=== PATIENT | female | born 1995 | race Caucasian/White ===

== ENCOUNTER → 2016-12-08 | Outpatient (CLI) | payer BC | END | disposition home or self-care (01) | LOC: C.PAPS 11:23 | PROVIDERS: ATTEND Obstetrics & Gynecology | DX: Z01.419 Encounter for gynecological examination (general) (routine) without abnormal findings (principal) ==

== ENCOUNTER → 2017-05-09 | Outpatient (CLI) | payer BC ==
--- NOTE | 2017-05-09 10:03 | DIAGNOSTIC IMAGING REPORT ---
HYSTEROSALPINGOGRAM HISTORY: Infertility. FLUOROSCOPY TIME: 0.5 minutes. 4 fluoroscopic spot images.. TECHNIQUE: The cervix was cannulated by the handstitching machine armhole feller-electrical assembler and water soluble contrast was instilled into the uterus under fluoroscopic guidance. Multiple spot images were obtained. FINDINGS: The uterine cavity is normal in size, shape, and position. The fallopian tubes are patent and there is free peritoneal spill bilaterally. IMPRESSION: Normal hysterosalpingogram. Electronically signed by: Kenn Pfeiffer M.D. 05/09/2017 10:02 AM Dictated Date/Time: 05/09/2017 10:02 AM
--- NOTE | 2017-05-09 11:58 | OPERATIVE REPORT ---
DATE OF OPERATION: 05/09/2017 PREOPERATIVE DIAGNOSIS: Infertility. POSTOPERATIVE DIAGNOSIS: Same. PROCEDURE: Hysterosalpingogram. SURGEON: Dr. Francis. ANESTHESIA: None. ESTIMATED BLOOD LOSS: None. PROCEDURE: The patient was identified in the radiology suite by verbally and by bracelet. A time-out was held identifying correct patient and procedure. She was placed in the frog leg position. A speculum was placed. Cervix was cleaned with Betadine. The anterior lip of the cervix was grasped with an Allis. The introducer was placed into the cervix. The radiologist was called. The patient was positioned under the fluoroscopy and fluoroscopy was initiated. The dye was pushed until adequate pictures were obtained. The procedure was then discontinued. All instruments were removed from the vagina. Hemostasis was excellent. The patient tolerated the procedure well and was discharged home. I attest to the content of the Intraoperative Record and any orders documented therein. Any exception s are noted below.
== END | disposition home or self-care (01) ==
LOC: C.RAD 09:13
PROVIDERS: ATTEND Obstetrics & Gynecology
DX: Z31.41 Encounter for fertility testing (principal)

== ENCOUNTER 2020-12-23 07:28 | Inpatient (IN) ==
--- NOTE | 2020-12-23 08:04 | History & Physical Report ---
Date of Service December 23, 2020 Assessment & Plan (1) Encounter for induction of labor: 25 y/o at 39w0d here for eIOL. A pos. RI. GBS neg. Letrozole use (x11 cycles) in past (evaluated for infertility in 2017). - induction via pitocin, 2+2 - planning for epidural. consult anesthesiology. - type + screen ordered. - LR 125/hr - covid swab ordered - pugh bulb placed on 12/22/20. bulb is still in. (2) Encounter for supervision in primigravida, antepartum: (3) Von Willebrand disease: - took DDAVP in past (IV and nasal) for procedures plan: DDAVP 1hr prior to delivery - See Heme note 12/16/20 20mcg of DDAVP mixed in 50 ml NSS (4) Gallstone pancreatitis: - per outpt gen surg consult, planning for lap neil 1-2 months after delivery - s/p BMZ -11/27/20 (5) Tobacco smoking affecting : - 1/2 ppd tobacco during (6) Anxiety and depression: - not on medications Admission and Anticipated Discharge Date Admission Date: December 23, 2020 History of Present Illness Primary Care Provider: Francisca Hurley PA-C 25 y/o at 39w0d here for eIOL. Pugh bulb placed 12/22/20. complicated by Von Willebrand disease, current tobacco use, and gallstone pancreatitis (s/p BMZ 11/26-11/27). - contractions; + movement; - fluid loss; - bloody show Had regular appointments with OB. Labs: (05/19/20) Blood type: A pos (06/09/20) Antibody screen: neg (06/09/20) Hg: pending (today) Hct: pending (today) WBC: pending (today) Plt: pending (today) Rubella: immune RPR: nonreactive Gonorrhea: not detected Chlamydia: not detected HIV: neg HbSAg: neg GBS: neg (12/07/20) Glucose 1 Hour 50 gm Load 100 mg/dl (70-130) 10/15/20 Other screens: panorama low risk akh cf/sma neg akh afp neg akh Allergies Allergy/AdvReac Type Severity Reaction Status Date / Time codeine AdvReac Intermediate Nausea Verified 12/22/20 15:12 metoclopramide [From Reglan] AdvReac Anxiety Verified 12/22/20 20:19 Home Medications Medication Instructions Recorded Confirmed Type acetaminophen [Tylenol] 650 mg PO Q6H PRN 05/14/19 12/23/20 History prenat.vits,maikel,[id number] 1 tab PO DAILY 05/15/20 12/23/20 History ondansetron HCl 4 mg tablet 4 mg PO Q4H PRN #20 tab 09/07/20 12/23/20 Rx sucralfate [Carafate] 10 ml PO QID #420 ml 11/24/20 12/23/20 Rx famotidine 20 mg PO BID PRN 11/25/20 12/23/20 History ferrous sulfate 325 mg (65 mg 325 mg PO DAILY 12/03/20 12/23/20 History iron) tablet Patient History Medical History Anxiety no meds Depression no meds Gallstone pancreatitis 11/24/20 - plan to have gallbladder removed in January GERD (gastroesophageal reflux disease) History of hysterosalpingogram Hyperemesis affecting , antepartum Interstitial cystitis Varicella vaccination Von Willebrand disease Surgical History S/P cystoscopy S/P nasal septoplasty S/P wisdom tooth extraction Family History Grandfather (Paternal) Heart disease Stroke Hypertension Grandmother (Paternal) Heart disease Stroke Hypertension Denies family history of Ovarian cancer Breast cancer Colorectal cancer Social History (Updated 12/23/20 @ 09:10 by Sergio Mittal MD) Smoking Status: Current every day smoker Tobacco Type: Cigarettes Years Smoked: 10; Cigarettes Per Day: 1/2 pack per day; Second Hand Exposure: No; Do You Dip or Chew Tobacco: No; Tobacco Cessation Education Requested by Patient: No Hx Alcohol Use: No Hx Substance Use: Yes Prescribed Medications: Marijuana Prescribed Medications Comment: medical marijuana per patient. Has not used during . Preferred Language: Croatian Communication Ability: Effective Cna Pct Required: No Beliefs That Will Affect Care: None marital status: marital status details: raul Blanton (24) [phone] Current Living Situation: Spouse Current Living Situation Comment: lives with foster daughter and dog current occupational status: employed current occupation: contract tracer How many Children do You have: 2 Other Information That Helps Us Care for You: No Feels Safe at Home: Yes Safety Concerns: Feels Safe At This Time Assistive Devices: None Review of Systems Denies fever, chills, sweats Denies shortness of breath, difficulty breathing, chest pain, palpitations, chest pressure. Denies breast pain. Denies dysuria. Denies headache or changes in vision. Denies nausea/vomiting. Denies numbness, tingling, weakness. Physical Exam Physical Exam: General: Alert, oriented. No acute distress. Cardiac: Regular rate and rhythm, no murmurs/rubs/gallops. Respiratory: Clear to auscultation bilaterally, no wheezes/rales/rhonchi. No increased work of breathing. Symmetrical chest rise. No respiratory distress. Abdomen: Gravid; Nontender Pelvic: Dilation 5cm; Effacement 75%; Station -2. Soft-mid. EFW 7-8. Exam per Dr. Francis Lower Extremities: No lower extremity edema or swelling. No deep calf pain. Markel's negative bilaterally Results & Data ([facility]) Vital Signs (Past 12 Hours) Vital Signs Pulse BP 12/23/20 07:47 93 H 128/77 Code Status & VTE Plan Code Status full code VTE Prophylaxis Plan VTE Prophylaxis will be ordered: No Monitoring External Monitor External FHT and external uterine monitors used; Category I tracing; moderate FHT variability.Baseline ~150. No late or variable decels. Tocodynamometer External toco. No contractions noted. Supervising Physician Co-Signing Physician Notes Resident Physician Supervision Note: I interviewed and examined the patient. Discussed with Dr. Dr. Mittal and agree with findings and plan as documented in the note. Any exceptions or clarifications are listed here: Patient is a 25yowf G1 with Type one vWD. Patient has been seen by hematology and plan is DDAVP one hour prior to delivery. Fetus is having an occasional variable. Bedside ultrasound shows subjectively low fluid. Fetus overall reassuring with accels noted. Anesthesia has been by and talked to the patient about the risk of regional anesthesia. Would plan to give ddavp one hour prior to regional anesthesia. If she delivers within 6-7 hours, per Dr. Hairston, probably don't need to redose. If longer than than that, consider a second dose, but only 2 in 24 hrs. Then will need to check sodium in the morning. Did discuss that if fetus does not tolerate labor and need to proceed with urgent c/s and no ddavp given, will likely have to go to sleep and risk of bleeding is increased. Discussed could proceed with elective c/s now, but do not necessarily feel we need to do this at this point as overall the baby looks reassuring. However, to avoid that very small risk of urgent c/s, proceeding now electively and controlled would be the answer. Again, I don't think we need to do that. Questions asked and answered with Dr. Graves and the patient. Will get formal baylee just to see, but if oligo, would be indication for induction anyway. My plan would be if pit given and have frequent variable and low fluid, can consider amnioinfusion or proceeding to controlled c/s. Patient and fob express understanding of the situation. Documented By: Dayanara Francis MD, FACOG Resident Activity Tracking Resident Involvement: Resident Care Provided Care Provided: OB Delivery
[2020-12-23] MEDS ORDERED: OXYTOCIN 30 UNITS/500 ML BAG IV PRN ×2 (08:29)
[2020-12-23] MEDS ORDERED: LACTATED RINGER'S 1,000 ML IV PRN (08:29)
[2020-12-23 10:29] LABS: Hematocrit (blood only) 31.7 % (37-47); Hemoglobin 10.8 g/dL (12.0-16.0); Mean Corpuscular Hgb Conc 34.1 g/dL (32-36); Mean Corpuscular Volume 88.1 fL (80-100); Mean Platelet Volume 10.4 fL (7.4-10.4); Platelet Count 341 K/uL (130-400); RDW Coefficient of Variation 13.6 % (11.5-14.5); RDW Standard Deviation 43.9 fL (36.4-46.3); White Blood Count 12.29 K/uL (4.8-10.8)
--- NOTE | 2020-12-23 10:37 | Anesthesiology Consultation ---
Date of Service December 23, 2020 Assessment & Plan (1) Encounter for pre-operative examination: Chart Review Chart Review: Acceptable Risk for Surgery and Acceptable Risk for Labor Epidural Teaching & Discussion Spoke with patient about her increased bleeding risk from type I vonwillebrands and how it might affect my ability to offer neuraxial analgesia and or anesthesia. Her vw labs were found to be in the normal range during her pregna ncy which is common. She understands that we would give ddavp prior to any procedure per Dr Hairston's recommendations, and that bleeding complications will be a lower, reasonable risk though still higher than in someone without the disorder. She realizes that a neuraxial procedure is not a necessity in childbirth and will consider her options, but is leaning toward doing it at this point. Will follow along through her labor with Dr Francis. History Height/Weight Height: 5 ft 3 in Weight: 78.925 kg Allergies Allergy/AdvReac Type Severity Reaction Status Date / Time codeine AdvReac Intermediate Nausea Verified 12/22/20 15:12 metoclopramide [From Reglan] AdvReac Anxiety Verified 12/22/20 20:19 Medications Home Medications Medication Instructions Recorded Confirmed Last Taken acetaminophen [Tylenol] 650 mg PO Q6H PRN 05/14/19 12/23/20 12/22/20 23:00 prenat.vits,maikel,[id number] 1 tab PO DAILY 05/15/20 12/23/20 12/22/20 ondansetron HCl 4 mg tablet 4 mg PO Q4H PRN #20 tab 09/07/20 12/23/20 11/24/20 21:30 sucralfate [Carafate] 10 ml PO QID #420 ml 11/24/20 12/23/20 11/24/20 20:00 ONE DOSE TODAY famotidine 20 mg PO BID PRN 11/25/20 12/23/20 12/22/20 ferrous sulfate 325 mg (65 mg 325 mg PO DAILY 12/03/20 12/23/20 12/22/20 iron) tablet Active Medications Generic Name Dose Route Start Last Admin Trade Name Freq PRN Reason Stop Dose Admin Oxytocin 30 units in 500 mls @ 2 mls/hr 12/23/20 08:29 12/23/20 10:27 Pitocin IV 12/25/20 08:28 0.12 units/hr .Q24H PRN 2 mls/hr Labor Induction/Augmentation Administration Protocol 0.12 UNITS/HR Lactated Ringer's 1,000 mls @ 125 mls/hr 12/23/20 08:29 12/23/20 08:52 Lr IV 12/25/20 08:28 125 mls/hr .Q8H PRN Administration L&D Protocol Protocol NPO Last Intake of Fluids Comment: Sips Date Last Intake of Solids: 12/22/20 Past Medical History Medical History Anxiety no meds Depression no meds Gallstone pancreatitis 11/24/20 - plan to have gallbladder removed in January GERD (gastroesophageal reflux disease) History of hysterosalpingogram Hyperemesis affecting , antepartum Interstitial cystitis Varicella vaccination Von Willebrand disease Exercise / Class Metabolic Activity II 4-5 Yardwork/Stairs/Walk up hill Past Family History Family History Grandfather (Paternal) Heart disease Stroke Hypertension Grandmother (Paternal) Heart disease Stroke Hypertension Denies family history of Ovarian cancer Breast cancer Colorectal cancer Past Surgical History Surgical History S/P cystoscopy S/P nasal septoplasty S/P wisdom tooth extraction Social History Smoking Status: Current every day smoker tobacco type: cigarettes Smoking cigarettes per day: 1/2 pack per day Do You Dip or Chew Tobacco: No Hx Alcohol Use: No Hx Substance Use: Yes substance use type: does not use Physical Exam Vital Signs Last Vital Signs Temp 36.7 C 12/23/20 07:55 Pulse 93 H 12/23/20 07:55 Resp 18 12/23/20 07:55 BP 128/77 12/23/20 07:55
--- NOTE | 2020-12-23 12:46 | Labor Progress Brief Note ---
Date of Service December 23, 2020 Subjective Formal ultrasound confirms oligohydramnios with largest vertical pocket<2 and baylee less than 4. Additionally at the time of the ultrasound, the tech noted thickened tissue/skin behind the head and neck. there is no other area of skin that is thickened or edematous and no evidence of fluid in the abdomen, around the heart or lungs. Discussed this new finding with M. Nl anatomy ultrasound noted. Dr. Bey noted that she could not think of anything off the top of her head. Does not sound like hydrops, may just be fat in the tissues behind the neck. Did not feel a contraindication to vaginal delivery. Discussed the patient with [place] litigation attorney. Also discussed with the patient and her fob. They express understanding of the uncertainty of the situation and possible causes. Will likely not know until after delivery. Dr. Bey thought that it was ok for the baby to deliver here. The patient is comfortable with delivery here. Dr. Bruce is ok as well. Patient understands that if something unexpected found, baby may need to be transferred to higher care (in fact, that can happen in any delivery situation). Pitocin is currently at 4. Not really feeling contractions. Fetus category one currently with accels to 160s. Assessment & Plan Admission and Anticipated Discharge Date Admission Date: December 23, 2020 Results & Data ([facility]) Vital Signs (Past 12 Hours) Vital Signs Temp Pulse Resp BP 12/23/20 10:29 71 121/71 12/23/20 07:55 36.7 C 93 H 18 128/77 12/23/20 07:47 93 H 128/77 Coding Level of Care Code None
--- NOTE | 2020-12-23 13:04 | Ultrasound Report ---
US OB limited CLINICAL HISTORY: baylee, evaluate for oligohydramnios COMPARISON STUDY: Obstetrical ultrasound 09/09/2020. FINDINGS: Transabdominal scanning of the fetus was performed with lifeline representatives images submitted. A anatomic survey was not performed. heart rate is 133 beats per minute. The fetus is in a cephalic presentation. There is a fundal placenta. No subchorionic hematoma identified. There is jose re oligohydramnios with an amniotic fluid index of 3 cm. IMPRESSION: 1. Single viable intrauterine gestation with a heart rate of 133 BPM. 2. Severe oligohydramnios. ACT 112: Negative or not required by law. Electronically signed by: Kenn Pfeiffer M.D. 12/23/2020 1:02 PM
--- NOTE | 2020-12-23 13:23 | Labor Progress Brief Note ---
Date of Service December 23, 2020 Subjective Fetus had a spontaneous decel to 70s for about 5 minutes. Pit was at 4 and turned off. Patient turned. Checked and cx unchanged. Difficult contraction tracing so may have been an episode of tachysystole. Baby has now recovered , had scalp stim with check. Discussed the situation again with them. Given that we are already doing this and so far from delivery, I have concern in the setting of oligo that this may recur and discussed concern given her overall situation and a stat c/s. I discussed that I recommend we proceed with a controlled c/s at this time. Was just getting ready to start the ddavp in preparation for an epidural as Pit was at 4 and we were having q 2 min ctx that were palpating moderate. Also discussed that the baby has recovered and could continue current plan to get epidural and then break water and hold on pitocin for now. Either option reasonable. After discussion, plan to move on with c/s for intolerance of labor under controlled circumstances. Consent reviewed and signed. Anesthesia aware. STarting DDAVP now. Assessment & Plan Admission and Anticipated Discharge Date Admission Date: December 23, 2020 Results & Data ([facility]) Vital Signs (Past 12 Hours) Vital Signs Temp Pulse Resp BP 12/23/20 12:38 67 131/63 12/23/20 12:35 36.9 C 18 12/23/20 10:29 71 121/71 12/23/20 07:55 36.7 C 93 H 18 128/77 12/23/20 07:47 93 H 128/77 Coding Level of Care Code None
[2020-12-23] MEDS ORDERED: MoRPHine SULFATE PF 1 MG/ML 10 ML AMP/VIAL ONE (13:27)
[2020-12-23] MEDS ORDERED: CITRIC ACID/SODIUM CITRATE 15 ML UDC ONE (13:41)
[2020-12-23] MEDS ORDERED: LACTATED RINGER'S 1,000 ML IV SCH ×2 (13:45→19:01)
[2020-12-23] MEDS ORDERED: ceFAZolin 2000MG 2,000 MG/15 ML SYR IV SCH (13:45)
[2020-12-23] MEDS ORDERED: CITRIC ACID/SODIUM CITRATE 15 ML UDC PO SCH (13:45)
[2020-12-23] MEDS ORDERED: miSOPROStoL 100 MCG TAB ONE (13:48)
[2020-12-23] MEDS ORDERED: ePHEDrine sulfate 50 MG/ML AMP IV PRN (14:56)
[2020-12-23] MEDS ORDERED: NALOXONE HCL 0.4 MG/1 ML VIAL/CARP IV PRN (14:56)
[2020-12-23] MEDS ORDERED: NALOXONE HCL 0.08 MG in SYRINGE 1.8 ML IV PRN (14:56)
[2020-12-23] MEDS ORDERED: NALOXONE HCL 1 MG in SODIUM CHLORIDE 0.9% 1,000 ML IV PRN (14:56)
[2020-12-23] MEDS ORDERED: ONDANSETRON INJ 2 MG/ML 2 ML VIAL IV PRN ×2 (14:56→19:01)
[2020-12-23] MEDS ORDERED: MoRPHine SULFATE PF 1 MG/ML 10 ML AMP/VIAL INT SPINAL ONE (14:56)
[2020-12-23] MEDS ORDERED: PROMETHAZINE HCL 12.5 MG in SODIUM CHLORIDE 0.9% 50 ML IV PRN (14:56)
[2020-12-23] MEDS ORDERED: MEPERIDINE HCL 25 MG/ML CARP/VIAL IV PRN (14:56)
[2020-12-23] MEDS ORDERED: LACTATED RINGER'S 500 ML IV PRN (14:56)
[2020-12-23] MEDS ORDERED: diphenhydrAMINE 50 MG/ML VIAL IV PRN ×2 (14:56→19:01)
[2020-12-23] MEDS ORDERED: SODIUM CHLORIDE 0.9% 1,000 ML IV SCH (15:00)
[2020-12-23] MEDS ORDERED: DC INTRASPINAL MORPHINE SCH (15:00)
[2020-12-23] MEDS ORDERED: NO NARCOTICS OR SEDATIVES SCH (15:00)
[2020-12-23] MEDS ORDERED: PROPOFOL IV EMULSION 10 MG/ML 20 ML VIAL IV ONE (15:03)
[2020-12-23] MEDS ORDERED: LIDOCAINE 2% MPF LOCAL 5 ML VIAL INFIL ONE (15:03)
[2020-12-23] MEDS ORDERED: OXYTOCIN 10 UNITS/ML VIAL ONE ×3 (15:04→15:40)
[2020-12-23] MEDS ORDERED: ONDANSETRON INJ 2 MG/ML 2 ML VIAL ONE (15:04)
[2020-12-23] MEDS ORDERED: ePHEDrine sulfate 50 MG/5 ML SYR ONE (15:04)
[2020-12-23] MEDS ORDERED: PHENYLEPHRINE 100MCG/ML 5ML SYR ONE (15:27)
--- NOTE | 2020-12-23 15:45 | Operative Report ---
PG Post Operative Report Pre & Post Diagnosis Operation Date: 12/23/20 15:00 <No data on this case meets the specified criteria> preop- 1. at 39 weeks 2. type 1 von Willebrands disease 3. intolerance of labor 4. oligohydramnios postop-- same I identified the patient and participated in the time-out.: Yes Procedure Operation Date: 12/23/20 15:00 <No data on this case meets the specified criteria> primary low transverse Surgeon Dayanara Francis MD, FACOG Detailer [employer] Ab Tavera RN Estimated Blood Loss 600 Findings Consistent with Post-Op Diagnosis viable female infant in cephalic presentation, clear fluid, nl uterus/tubes ovaries bilaterally small hematoma on left of incision Fluids 2100cc Specimens placenta, cord gases Drains pugh Anesthesia Type Spinal Complications none Disposition Accompanied Patient To Recovery: Yes Disposition: L&D Indications 25yowf G1, induction for Type 1 von Willebrands disease, oligo diagnosed day of procedure. intolerance of contractions. Description of Procedure please see other operative note. I attest to the content of the Intraoperative Record and any orders documented therein. Any exceptions are noted below. OB Procedure charges OB Charges [id number] C/S
[2020-12-23] MEDS ORDERED: ACETAMINOPHEN 1,000 MG/100 ML VIAL IV PRN (16:12)
[2020-12-23] MEDS ORDERED: ACETAMINOPHEN 1000 MG/100 ML IV IV ONE (16:14)
[2020-12-23] MEDS ORDERED: DESMOPRESSIN ACETATE 20 MCG in SODIUM CHLORIDE 0.9% 50 ML IV SCH (17:00)
--- NOTE | 2020-12-23 17:53 | Operative Report (OR) ---
DATE OF OPERATION: 12/23/2020 PREOPERATIVE DIAGNOSES: 1. Intrauterine at 39 weeks. 2. Type 1 von Willebrand's disease. 3. Oligohydramnios. 4. intolerance to labor. POSTOPERATIVE DIAGNOSES: 1. Intrauterine at 39 weeks. 2. Type 1 von Willebrand's disease. 3. Oligohydramnios. 4. intolerance to labor. PROCEDURE: Primary low transverse section. SURGEON: Dayanara Francis MD. CHEMICAL ENGINEERING PROFESSOR: Angela Tavera RN. ANESTHESIA: Spinal. ESTIMATED BLOOD LOSS: 600 mL FLUIDS: 2100 mL URINE OUTPUT: 50 mL of clear concentrated urine out of the bladder at the end of the procedure. INDICATIONS: The patient is a 25-year-old 1, para 0 with known type 1 von Willbrand disease. She was brought in today at 39 and 0/7th weeks for planned induction for controlled delivery of DDAVP. Upon putting the baby on the monitor several variables were noted, so brief bedside ultrasound was done and subjective oligohydramnios was noted. Formal US showed BERNADETTE was 3.9 with a deep vertical pocket of 1.7. We attempted Pitocin augmentation, but even at 4, we continued to have variables and then we had a prolonged spontaneous decel for 5 minutes. After discussion, we decided that to proceed in a controlled manner with section with DDAVP administered appropriately beforehand was a better choice than an acute urgent section for nontolerance of labor without giving DDAVP beforehand and needing to have general anesthesia. The patient understood that we could continue labor because after the 5 minute decel the heart tones resolved to category 1 strip. FINDINGS: Viable female in cephalic presentation. Placenta appeared normal. Cord normal. There was a little bit of clear fluid that was released on hysterotomy incision. Normal uterus, tubes, and ovaries were noted bilaterally. Apgars pending. COMPLICATIONS: None. DRAINS: Murray. DISPOSITION: To recovery room in stable condition. DESCRIPTION OF PROCEDURE: The patient was taken to the operating room where she was identified verbally and by bracelet. She She was seated on the operating table where spinal anesthetic was placed. The patient had received DDAVP that was infused by 3 o'clock totally 20 mcg of DDAVP and 50 mL of normal saline that was completely infused at 3:00. The patient was then brought down to the operating room at 3:30 where her spinal anesthetic was placed as described. A Murray catheter was placed sterilely. She was prepped and draped in normal sterile fashion. Anesthetic was tested and found to be adequate. A time-out was held, identifying correct patient, procedure, positioning, preoperative antibiotic and distention of DDAVP. A Pfannenstiel skin incision was made with a knife and taken down to the underlying layer of fascia with the knife and Bovie electrocautery. Bleeding was attended to with Bovie electrocautery. The fascia was incised with the knife and taken out laterally with scissors. The superior edge of the fascial incision was grasped, elevating the underlying layer of rectus muscle was taken off bluntly and with scissors. In a similar fashion, the inferior edge of the fascial incision was grasped, elevated and the underlying layer of rectus muscle was taken off bluntly and with scissors. The muscles were bluntly and sharply with scissors in the midline. The peritoneum was entered bluntly. It was stretched with the tinsel machine operator's and technology assistant's hands. A bladder blade was placed. A bladder flap was created by grasping with a snap and entering with scissors. This was taken out laterally with scissors. Hysterotomy incision was scored with a knife. It was entered with a snap. The incision was stretched with the tinsel machine operator's fingers. A small amount of clear fluid was noted on hysterotomy incision. The tinsel machine operator's hand was placed into the incision and the head was lifted into the incision, but it was a tight fit. I called for the vacuum and it was applied x1, but did not have a good seal and popped off easily. Then remembering that the patient has von Willebrand's disease, Decision was made not to proceed with further attempts with the vacuum. I was then able to extend the incision on the left side using bandage scissors and then we were able to deliver the head atraumatically through the incision using fundal pressure. There was immediate cry. Nose and mouth were bulb suctioned. There was no nuchal cord and the rest of the infant was then delivered without difficulty. The nose and mouth were again bulb suctioned. The baby was vigorous. The cord was clamped and cut. The was handed off to waiting pediatricians for drying and attention. Cord blood and segment were obtained. Placenta was manually extracted. The uterus was exteriorized and cleared of all clot and debris with moist laparotomy sponges. The hysterotomy was repaired in 2 layers, the first in a running locked layer and the second in an imbricating layer. There was a small hematoma noted on the left side of the incision that was watched very carefully over several minutes and was not expanding. The incision was noted to be hemostatic. The posterior cul-de-sac was irrigated and cleared of all clot and debris. The incision was inspected again and found to be hemostatic. A small hematoma was not enlarged. The uterus was reanteriorized. The area of the hematoma was again observed for a few minutes and no worsening of the hematoma was noted. The muscles were then reapproximated in the midline using interrupted sutures of 0 Vicryl. The muscles were then irrigated and any bleeding edges were attended to with Bovie electrocautery until hemostasis was good. The fascia was then reapproximated with 0 Vicryl starting at the edges and meeting in the midline. The subcuticular tissue was irrigated. Bleeding was attended to with Bovie electrocautery. The subcuticular tissue was closed with horizontal mattress sutures of 2-0 plain gut and the skin was then closed with subcuticular stitches. All sponge, lap and needle counts were correct x2. The patient tolerated the procedure well and was taken to recovery room in stable condition. I attest to the content of the Intraoperative Record and any orders documented therein. Any exceptions are noted below. KARISHMAD
[2020-12-23 18:07] LABS: Base Excess Cord Venous Blood -2.7 mEq/L (-7.7-1.9); Cord Venous Blood HCO3 24 mmol/L (18.4-26.8); Cord Venous Blood PCO2 48 mmHg (30.4-57.2); Cord Venous Blood PO2 25 mmHg (14.1-43.3); Cord Venous Blood pH 7.32 (7.20-7.44); O2 Saturation Cord Venous Bld 61.3 % (<68)
--- NOTE | 2020-12-23 18:37 | Anesthesiology Progress Note ---
Date of Service December 23, 2020 Anesthesia Post Procedure Vital Signs Vital Signs: Temp Pulse Resp BP Pulse Ox 12/23/20 18:34 79 100 12/23/20 18:29 69 100 12/23/20 18:26 71 116/58 L 12/23/20 18:24 75 100 12/23/20 18:19 72 100 12/23/20 18:14 63 100 12/23/20 18:09 73 100 12/23/20 18:04 74 100 12/23/20 17:59 70 100 12/23/20 17:56 66 123/60 12/23/20 17:54 63 100 12/23/20 17:49 66 100 12/23/20 17:47 59 L 120/58 L 12/23/20 17:44 66 100 12/23/20 17:39 70 100 12/23/20 17:37 71 118/54 L 12/23/20 17:34 70 100 12/23/20 17:29 72 100 12/23/20 17:24 59 L 100 12/23/20 17:19 70 100 12/23/20 17:16 70 115/65 12/23/20 17:14 71 100 12/23/20 17:09 69 100 12/23/20 17:06 64 116/73 12/23/20 17:04 62 100 12/23/20 16:59 58 L 100 12/23/20 16:56 54 L 117/69 12/23/20 16:54 53 L 100 12/23/20 16:52 65 112/68 12/23/20 16:49 68 100 12/23/20 16:46 169 H 114/44 L 12/23/20 16:45 51 L 16 112/68 100 12/23/20 16:44 61 100 12/23/20 16:39 62 100 12/23/20 16:36 67 110/58 L 12/23/20 16:35 67 16 110/58 L 100 12/23/20 16:34 61 100 12/23/20 16:29 68 100 12/23/20 16:26 63 116/74 12/23/20 16:25 63 18 116/74 100 12/23/20 16:24 60 100 12/23/20 16:19 57 L 100 12/23/20 16:16 50 L 115/68 12/23/20 16:15 69 16 115/68 100 12/23/20 16:14 62 100 12/23/20 16:09 55 L 100 12/23/20 16:06 51 L 114/64 12/23/20 16:05 51 L 16 114/64 100 12/23/20 16:04 52 L 100 12/23/20 15:59 62 100 12/23/20 15:56 66 119/68 12/23/20 15:55 36.4 C L 72 16 119/68 99 12/23/20 14:28 72 135/76 12/23/20 13:37 71 126/69 12/23/20 12:38 67 131/63 12/23/20 12:35 36.9 C 18 12/23/20 10:29 71 121/71 12/23/20 07:55 36.7 C 93 H 18 128/77 12/23/20 07:47 93 H 128/77 Pain Intensity Lower Medial Abdomen: Pain Intensity: 7 Transfer of Care Handoff Completed per policy Notes Mental Status: alert / awake / arousable Patient Amnestic to Procedure: Yes Nausea / Vomiting: adequately controlled Pain: adequately controlled Airway Patency, RR, SpO2: stable & adequate BP & HR: stable & adequate Hydration State: stable & adequate Neuraxial Anesthesia: was administered and sensory block is resolving Anesthetic Complications: no major complications apparent
[2020-12-23] MEDS ORDERED: PROMETHAZINE HCL 25 MG in SODIUM CHLORIDE 0.9% 50 ML IV PRN (19:01)
[2020-12-23] MEDS ORDERED: MAGNESIUM HYDROXIDE SUSP 30 ML UDC PO PRN (19:01)
[2020-12-23] MEDS ORDERED: BENZOCAINE 20% SPRY 85 APPLN/85 GM CAN EXT PRN (19:01)
[2020-12-23] MEDS ORDERED: HYDROCORTISONE ACETATE 25 MG SUPP PR PRN (19:01)
[2020-12-23] MEDS ORDERED: DIPHTHERIA/TETANUS/PERTUSSIS Vaccine (Tdap, Age 7+yrs) 0.5mL SYR/VL IM ONE (19:01)
[2020-12-23] MEDS ORDERED: SUPERCREAM 0.870% 15 GM JAR EXT PRN (19:01)
[2020-12-23] MEDS ORDERED: diphenhydrAMINE Capsule 25 MG CAP PO PRN (19:01)
[2020-12-23] MEDS ORDERED: SENNA 8.6 MG TAB PO PRN (19:01)
[2020-12-23] MEDS: OXYTOCIN 20 UNITS in LACTATED RINGER'S 1,000 ML IV SCH (20:26)
[2020-12-23] MEDS: SIMETHICONE 80 MG CHEW PO SCH ×2 (20:43→21:41)
[2020-12-23] MEDS: MEPERIDINE HCL 50 MG/ML CARP IV PRN (21:42)
[2020-12-23] MEDS: DOCUSATE SODIUM 100 MG CAP PO SCH (21:42)
[2020-12-24] MEDS: MEPERIDINE HCL 50 MG/ML CARP IV PRN ×2 (02:31→06:39)
[2020-12-24] MEDS: OXYTOCIN 20 UNITS in LACTATED RINGER'S 1,000 ML IV SCH (04:38)
[2020-12-24] MEDS ORDERED: CITRIC ACID/SODIUM CITRATE 15 ML UDC PO SCH (06:00)
[2020-12-24 06:22] LABS: Basophils # (auto) 0.02 K/uL (0-0.2); Basophils % (auto) 0.2 %; Eosinophils # (auto) 0.08 K/uL (0-0.5); Eosinophils % (auto) 0.7 %; Hematocrit (blood only) 28.9 % (37-47); Hemoglobin 9.5 g/dL (12.0-16.0); Immature Granulocytes # (auto) 0.06 K/uL (0.00-0.02); Immature Granulocytes % (auto) 0.5 %; Lymphocytes # (auto) 2.37 K/uL (1.2-3.4); Lymphocytes % (auto) 19.5 %; Mean Corpuscular Hemoglobin 29.2 pg (25-34); Mean Corpuscular Hgb Conc 32.9 g/dL (32-36); Mean Corpuscular Volume 88.9 fL (80-100); Mean Platelet Volume 9.9 fL (7.4-10.4); Monocytes # (auto) 0.77 K/uL (0.11-0.59); Monocytes % (auto) 6.3 %; Neutrophils # (auto) 8.84 K/uL (1.4-6.5); Neutrophils % (auto) 72.8 %; Platelet Count 253 K/uL (130-400); RDW Coefficient of Variation 13.7 % (11.5-14.5); RDW Standard Deviation 44.5 fL (36.4-46.3); Red Blood Count 3.25 M/uL (4.2-5.4); White Blood Count 12.14 K/uL (4.8-10.8)
--- NOTE | 2020-12-24 07:02 | Obstetrical Progress Note ---
Date of Service <Sergio Mittal MD - Last Filed: 12/24/20 07:15> December 24, 2020 Assessment & Plan <Sergio Mittal MD - Last Filed: 12/24/20 07:15> (1) state: 25 y/o 39w0d w/ type 1 vWd who is s/p pLTCS on 12/23/20 (POD1) for transient intolerance to labor and oligohydramnios. A pos. RI. - continue routine care - vitals appropriate - good uop - H/H stable. Hb 9.5 - advance diet as tolerated, remove pugh, ambulate, pain control - outpt f/u for gallstone pancreatitis (lap neil in 1-2 months). Subjective <Sergio Mittal MD - Last Filed: 12/24/20 07:15> Ambulation: limited ambulation Voiding: no voiding problems and pugh catheter in place Passing Gas:: Yes Diet Tolerance:: regular diet Lochia:: Small (pt unsure) Feeding Type:: breast feeding Current Pain Level(1-10): 0 Had pain overnight. 5/10 discomfort w/ movement. Pain meds helping. Pain is currently 0/10. Review of Systems Denies fever, chills, sweats Denies shortness of breath, chest pain, palpitations. Denies breast pain. Denies dysuria. Denies headache or changes in vision. Denies nausea/vomiting. Denies numbness, tingling, weakness. Physical Exam <Sergio Mittal MD - Last Filed: 12/24/20 07:15> General: Alert, oriented. No acute distress. Cardiac: Regular rate and rhythm, no murmurs/rubs/gallops. Respiratory: Clear to auscultation bilaterally, no wheezes/rales/rhonchi. No respiratory distress. Abdomen: , soft, nontender. Uterus: Uterine fundus firm, palpable 1?cm below umbilicus. c/s incision bandaged, c/d/i Lower Extremities: No lower extremity edema or swelling. No deep calf pain. Markel's negative bilaterally. Results & Data ([facility]) <Sergio Mittal MD - Last Filed: 12/24/20 07:15> Vital Signs (Past 12 Hours) Vital Signs Temp Pulse Resp BP Pulse Ox 12/24/20 06:20 16 97 12/24/20 05:20 16 96 12/24/20 04:20 18 96 12/24/20 03:22 18 95 12/24/20 03:05 37.0 C 89 16 117/68 95 12/24/20 02:20 16 94 12/24/20 01:20 16 96 12/24/20 00:20 18 93 12/23/20 23:22 37.0 C 92 H 16 118/73 96 12/23/20 21:30 36.5 C 82 18 116/65 95 12/23/20 20:00 36.8 C 79 18 123/75 100 12/23/20 19:20 18 99 Medications Administered <Dayanara Francis MD, FACOG - Last Filed: 12/24/20 07:52> Co-Signing Physician Notes Resident Physician Supervision Note: I interviewed and examined the patient. Discussed with Dr. Mittal and agree with findings and plan as documented in the note. Any exceptions or clarifications are listed here: Doing well this am pod0/1. Her bandage appeared saturated last night so was changed and sandbagged. I examined the incision at that time--no active bleeding noted, approximated, dressings with a serosang/bloody fluid. Dressing is dry this am. Continue pod 0/1 routine. Have message out to Dr. Hairston for f/u. Documented By: Dayanara Francis MD, FACOG
[2020-12-24] MEDS: FERROUS SULFATE 325 MG TAB PO SCH (08:36)
[2020-12-24] MEDS: DOCUSATE SODIUM 100 MG CAP PO SCH ×2 (08:36→20:20)
[2020-12-24] MEDS: SIMETHICONE 80 MG CHEW PO SCH ×4 (08:36→20:20)
[2020-12-24] MEDS: PRENATAL VITAMIN 1 TAB PO SCH (08:36)
[2020-12-24] MEDS: oxyCODONE/ACETAMINOPHEN 5mg/325mg TAB PO PRN ×4 (09:18→21:46)
[2020-12-24] MEDS: IBUPROFEN 600 MG TAB PO PRN ×2 (13:39→17:34)
[2020-12-24] MEDS ORDERED: bisacodyL 5 MG TABEC PO SCH (20:00)
[2020-12-25] MEDS: oxyCODONE/ACETAMINOPHEN 5mg/325mg TAB PO PRN ×6 (01:32→22:09)
--- NOTE | 2020-12-25 06:25 | Obstetrical Progress Note ---
Date of Service <Sergio Mittal MD - Last Filed: 12/25/20 07:25> December 25, 2020 Assessment & Plan <Sergio Mittal MD - Last Filed: 12/25/20 07:25> (1) state: 25 y/o 39w0d w/ type 1 vWd who is s/p pLTCS on 12/23/20 (POD2) for transient intolerance to labor and oligohydramnios. A pos. RI. - continue routine care - continue pain control, not ready for dispo today - remove bandage today - ordered abd binder - vitals appropriate - H/H pending - outpt f/u for gallstone pancreatitis (lap neil in 1-2 months). Subjective <Sergio Mittal MD - Last Filed: 12/25/20 07:25> Ambulation: ambulating normally Voiding: no voiding problems Passing Gas:: Yes (no BM) Diet Tolerance:: regular diet Lochia:: Small Feeding Type:: breast feeding Current Pain Level(1-10): 6 Patient reports severe incision pain w/ ambulation, described as burning, worse at RLQ at incision. 10/10 at worse. Percocet did not help. Pain is mild when not moving. Also has "gas pain" on left abd. Current pain is 6/10. Review of Systems Denies fever, chills, sweats Denies shortness of breath, chest pain, palpitations. Denies breast pain. Denies dysuria. Denies headache or changes in vision. Denies nausea/vomiting. Denies numbness, tingling, weakness. Denies calf pain. Mood described as emotional. Frustrated by being in pain. No SI/HI. Some tearing up / crying. Physical Exam <Sergio Mittal MD - Last Filed: 12/25/20 07:25> General: Alert, oriented. No acute distress. Cardiac: Regular rate and rhythm, no murmurs/rubs/gallops. Respiratory: Clear to auscultation bilaterally, no wheezes/rales/rhonchi. No respiratory distress. Abdomen: , soft. Uterus: Uterine fundus firm, palpable 1cm below umbilicus. c/s incision bandaged, bandage c/d/i. Lower Extremities: No lower extremity edema or swelling. No deep calf pain. Markel's negative bilaterally. Results & Data ([facility]) <Sergio Mittal MD - Last Filed: 12/25/20 07:25> Vital Signs (Past 12 Hours) Vital Signs Temp Pulse Resp BP Pulse Ox 12/24/20 23:05 36.9 C 78 18 115/77 98 12/24/20 19:30 36.8 C 75 18 123/76 97 Medications Administered <Maria Fernanda Canela MD, FACOG - Last Filed: 12/25/20 08:46> Co-Signing Physician Notes Resident Physician Supervision Note: I was present with Dr. Mittal during the history and exam. I discussed the case with the resident and agree with the findings and plan as documented in the note. Any exceptions or clarifications are listed here: doing well except for right LQ pain/burning, when she tries to sit up in bed and then when she stands and puts pressure on right leg. ambul fine, hunched over a little, if she stood straight up that burning pain would occur. af, vss, abd soft ff 2down nt, incision c/d/i with steris, palpated RLQ and no tenderness, no lump, no rebound or guarding, cannot elicit pt pain. ext nt calves, hgb stable. pod #2, doing ok, will try binder to see if helps with mobility in and out of bed, does feel better when she puts pressure on the area, monitor for improvement. no evidence of acute bleeding. routine care. rhpos, ri, breast feeding. Documented By: Maria Fernanda Canela MD, FACOG
[2020-12-25 08:06] LABS: Hematocrit (blood only) 29.6 % (37-47)
[2020-12-25] MEDS: SIMETHICONE 80 MG CHEW PO SCH ×4 (08:49→20:07)
[2020-12-25] MEDS: PRENATAL VITAMIN 1 TAB PO SCH (08:49)
[2020-12-25] MEDS: DOCUSATE SODIUM 100 MG CAP PO SCH ×2 (08:49→20:07)
[2020-12-25] MEDS: FERROUS SULFATE 325 MG TAB PO SCH (08:49)
[2020-12-25] MEDS: IBUPROFEN 600 MG TAB PO PRN ×4 (09:25→22:09)
[2020-12-25] MEDS ORDERED: bisacodyL 10 MG SUPP PR PRN (15:58)
[2020-12-26] MEDS: IBUPROFEN 600 MG TAB PO PRN ×2 (02:21→08:30)
[2020-12-26] MEDS: oxyCODONE/ACETAMINOPHEN 5mg/325mg TAB PO PRN ×2 (02:22→08:33)
--- NOTE | 2020-12-26 06:06 | Obstetrical Progress Note ---
Date of Service <Sergio Mittal MD - Last Filed: 12/26/20 07:14> December 26, 2020 Assessment & Plan <Sergio Mittal MD - Last Filed: 12/26/20 07:14> (1) state: 25 y/o 39w0d w/ type 1 vWd who is s/p pLTCS on 12/23/20 (POD2) for transient intolerance to labor and oligohydramnios. A pos. RI. - continue routine care - continue pain control and encourage ambulation - using abd binder - 12/25 H/H appropriate - outpt f/u for gallstone pancreatitis (lap neil in 1-2 months). Subjective <Sergio Mittal MD - Last Filed: 12/26/20 07:14> Ambulation: ambulating normally Voiding: no voiding problems Passing Gas:: Yes Diet Tolerance:: regular diet Lochia:: Moderate Feeding Type:: breast feeding Current Pain Level(1-10): 8 Patient is still having a lot of pain at her abd. No new concerns today. Review of Systems Denies fever, chills, sweats Denies shortness of breath, chest pain, palpitations. Denies breast pain. Denies dysuria. Denies headache or changes in vision. Denies nausea/vomiting. Denies numbness, tingling, weakness. Denies calf pain, Mood is good. Physical Exam <Sergio Mittal MD - Last Filed: 12/26/20 07:14> General: Alert, oriented. No acute distress. Cardiac: Regular rate and rhythm, no murmurs/rubs/gallops. Respiratory: Clear to auscultation bilaterally, no wheezes/rales/rhonchi. No respiratory distress. Abdomen: , soft. Uterus: Uterine fundus firm, palpable 2cm below umbilicus. LTCS incision is nonerythematous and has steri strips attached. Lower Extremities: No lower extremity edema or swelling. No deep calf pain. Markel's negative bilaterally. Results & Data ([facility]) <Sergio Mittal MD - Last Filed: 12/26/20 07:14> Vital Signs (Past 12 Hours) Vital Signs Temp Pulse Resp BP Pulse Ox 12/25/20 23:29 36.7 C 79 16 115/76 97 12/25/20 20:00 36.8 C 82 16 126/73 97 Medications Administered <Karina Martin MD - Last Filed: 12/26/20 07:53> Co-Signing Physician Notes Resident Physician Supervision Note: I interviewed and examined the patient. Discussed with Dr. Mittal and agree with findings and plan as documented in the note. Any exceptions or clarifications are listed here: patient with heavy smoker's cough demonstrated during visit, and has abdominal binder but not wearing. I suspect this cough is the explanation for her higher than usual pain levels; there are no objective markers of infection, wound opening, ileus, etc. She was noted to not support her incision while coughing and was counseled on this. Says the binder helps a lot. Also needs to ambulate and take focused deep breaths to help clear her mucus; she says she feels she can't cough things up very well due to spending so much time in bed. She did ask for specific pain medicine by name yesterday as well. During our visit today she was smiling, moving well, and does not appear to be in undue distress. Her only visible pain was with coughing, and only at the incision site. I feel she is appropriate for discharge and did agree to provide 1 Rx of percocet for her to use as needed at home, though she was encouraged to use this only if/when NSAIDS were ineffective as first line. Documented By: Karina Martin MD, FACOG
[2020-12-26] MEDS: DOCUSATE SODIUM 100 MG CAP PO SCH (08:29)
[2020-12-26] MEDS: SIMETHICONE 80 MG CHEW PO SCH (08:29)
[2020-12-26] MEDS: PRENATAL VITAMIN 1 TAB PO SCH (08:29)
[2020-12-26] MEDS: FERROUS SULFATE 325 MG TAB PO SCH (08:29)
--- NOTE | 2020-12-28 15:22 | Discharge Summary (DS) ---
ADMISSION DIAGNOSES: 1. Intrauterine at 39 and 0/7th weeks. 2. Von Willbrand disease. DISCHARGE DIAGNOSES: 1. Intrauterine at 39 and 0/7th weeks. 2. Von Willbrand disease. 3. intolerance of contractions. PROCEDURES: Primary lower transverse section. HISTORY OF PRESENT ILLNESS: The patient is a 25-year-old G1, P0 at 39 and 0/7th weeks, here for elective induction of labor. The patient has a history of von Willebrand disease and having an elective induction for planned DDAVP dosing. Murray bulb had been placed on 12/22/2020 and it was removed on the morning of admission. The patient's was also complicated by tobacco use and gallstone pancreatitis, for which she was hospitalized and received betamethasone 2 doses on 11/26/2020 and 11/27/2020. For the rest of patient's detailed history and physical, please see her dictated history and physical. ASSESSMENT: This is a 25-year-old G1, P0 at 39 and 0/7th weeks, here for elective induction of labor secondary to von Willebrand disease. HOSPITAL COURSE: The patient presented to labor and delivery and was placed on the monitor. Unfortunately, the baby had spontaneous variables without significant contractions. I did a brief bedside ultrasound revealing subjective oligohydramnios and formal bedside ultrasound did indeed reveal oligohydramnios. We attempted Pitocin augmentation, but the patient had some decelerations associated with this. Given the patient's von Willebrand disease and the need to dose the DDAVP relatively close to her delivery and that we did not want to chance having an urgent delivery with need for emergent and need for intubation for delivery, we decided to go ahead and proceed with section for failure for the fetus to tolerate contractions. The patient received DDAVP approximately 1 hour prior to first cut at the skin. The patient underwent a primary low transverse section without difficulty. ESTIMATED BLOOD LOSS: 600 mL FINDINGS: Viable female in cephalic presentation. The placenta appeared normal, umbilical cord normal. There was a little bit of clear fluid that was released on hysterotomy incision. Normal uterus, tubes, and ovaries were noted bilaterally. The patient's hospital course was uncomplicated. She tolerated a regular diet, ambulated without difficulty. She had her pain well controlled on oral pain medications and tolerated a regular diet. Her discharge H and H was 10.0 and 29.6. She will return in 6 weeks. She was given strict bleeding precautions and will follow up with Hematology as needed.
== END 2020-12-26 11:30 | disposition home or self-care (01) ==
LOC: 4S1 07:28 → 4S2 19:00

== ENCOUNTER 2021-01-09 23:25 | Inpatient (IN) ==
[2021-01-10] MEDS ORDERED: ONDANSETRON INJ 2 MG/ML 2 ML VIAL IV STA (01:10)
[2021-01-10] MEDS ORDERED: SODIUM CHLORIDE 0.9% 500 ML IV ONE (01:10)
[2021-01-10] MEDS ORDERED: KETOROLAC 30 MG/ML VIAL IV ONE (01:10)
[2021-01-10 01:13] LABS: Basophils # (auto) 0.02 K/uL (0-0.2); Basophils % (auto) 0.2 %; Eosinophils # (auto) 0.33 K/uL (0-0.5); Eosinophils % (auto) 3.2 %; Hematocrit (blood only) 39.3 % (37-47); Hemoglobin 13.1 g/dL (12.0-16.0); Immature Granulocytes # (auto) 0.03 K/uL (0.00-0.02); Immature Granulocytes % (auto) 0.3 %; Lymphocytes # (auto) 2.94 K/uL (1.2-3.4); Lymphocytes % (auto) 28.3 %; Mean Corpuscular Hemoglobin 29.4 pg (25-34); Mean Corpuscular Hgb Conc 33.3 g/dL (32-36); Mean Corpuscular Volume 88.1 fL (80-100); Mean Platelet Volume 9.3 fL (7.4-10.4); Monocytes # (auto) 0.79 K/uL (0.11-0.59); Monocytes % (auto) 7.6 %; Neutrophils # (auto) 6.27 K/uL (1.4-6.5); Neutrophils % (auto) 60.4 %; Platelet Count 538 K/uL (130-400); Red Blood Count 4.46 M/uL (4.2-5.4); White Blood Count 10.38 K/uL (4.8-10.8)
[2021-01-10 01:18] LABS: Appearance Urine Clear (Clear); Bacteria Urine Automated Negative (Negative); Bilirubin Urine Negative (Negative); Blood Urine 2+ (Negative); Color Urine Yellow; Epithelial Cell Urine Auto 20-30 /lpf (0-5); Glucose Urine UA Negative (Negative); Ketones Urine Negative (Negative); Leukocyte Esterase Urine 1+ (Negative); Nitrite Urine Negative (Negative); Protein Urine Negative (Negative); RBC Urine Automated 0-4 /hpf (0-4); Specific Gravity Urine 1.008 (1.000-1.030); Urobilinogen Urine Negative (Negative)
--- NOTE | 2021-01-10 01:21 | Emergency Department Note ---
Impression & Plan Gallstone pancreatitis ED Provider Note NAME: DENNY BARBOSA AGE: 25 SEX: F ARRIVES VIA: Walk-In INFORMANT: Patient ED PROVIDER(S): Naomie Guajardo DO CHIEF COMPLAINT: Epigastric abdominal pain PLAN: Disposition: Admission to the hospital for gallstone pancreatitis Condition: Stable MEDICAL DECISION MAKING: This is a 25-year-old female patient who was diagnosed with gallstone pancreatitis in the third trimester of . The patient is 2 weeks and had an episode of severe epigastric pain approximately 16 hours ago and recurrent pain approximately 3 hours ago. The patient has had some nausea and vomiting. The patient was diagnosed with gallstone pancreatitis in November while she was . She is scheduled to have a cholecystectomy on February 26. Triage Nursing notes reviewed and agree with them. Additional history obtained from her significant other who is at the bedside. Prior medical records reviewed Vital Signs: reviewed and unremarkable Differential diagnosis: Recurrent gallstone pancreatitis, colitis, gastritis, cholecystitis ER treatment provided: IV normal saline hydration IV Toradol IV Zofran Diagnostics interpreted by me: Cardiac Monitoring: Normal sinus rhythm at a rate of 74 Laboratory studies: See below HPI: 25/F arrives for evaluation of epigastric abdominal pain. The patient is 2 weeks and had an episode of severe epigastric pain approximate 16 hours ago and recurrent pain approximately 3 hours ago. The patient was diagnosed with gallstone pancreatitis in November while she was . She is scheduled to have a cholecystectomy on February [address] Lau. The patient has persistent nausea and epigastric pain at this time. ROS: See above HPI for pertinent positives & negatives. A total of 10 systems reviewed and were otherwise negative. PAST MEDICAL HISTORY:Depression; von Willebrand's disease PAST SURGICAL HISTORY:See Below FAMILY HISTORY:See Below SOCIAL HISTORY:See Below HOME MEDICATIONS:See list ALLERGIES:See list VITALS:See Below PHYSICAL EXAMINATION: HEENT: Head - normocephalic and atraumatic Pupils are equal, round, and reactive to light. Extraocular eye muscles are intact, and sclera are anicteric. Nose - moist nasal mucosa without discharge. Mouth - moist buccal mucosa. Oropharynx is nonerythematous and there is no tonsillar exudate or edema noted. Neck: Supple; no JVD, nuchal rigidity, cervical lymphadenopathy, or auscultated bruits. Heart: Regular rate and rhythm. There is a normal S1 and S2 with no murmurs, clicks, or gallops appreciated. Lungs: Clear to auscultation bilaterally with no wheezes, rales, or rhonchi. Abdomen: Soft, moderate pain to palpation in the epigastrium, nondistended, with good bowel sounds. There are no palpable pulsatile masses or hepatosplenomegaly. There is no guarding, rigidity, or rebound noted. Extremities: No evidence of cyanosis, clubbing, or edema. There are easily palpable peripheral pulses. Skin: warm and dry with good turgor and no rashes. ED COURSE: Times/Reassessments: 0055: The patient was evaluated in room C5. A complete history and physical was performed. An IV lock was initiated and labs were drawn as above. An order was placed for continuous cardiac monitoring. The patient was in a normal sinus rhythm at a rate of 74. She was given a dose of 30 mg of IV Toradol, 4 mg of IV Zofran and bolused with normal saline solution. 0200: I reevaluated the patient at this time and she is much more comfortable. I discussed the case with Dr. Mclain. He will evaluate the patient for inpatient care and surgery. Naomie Guajardo, DO Past Med/Surg History Medical History Anxiety no meds Depression no meds Gallstone pancreatitis 11/24/20 - plan to have gallbladder removed in January GERD (gastroesophageal reflux disease) History of hysterosalpingogram Hyperemesis affecting , antepartum Interstitial cystitis Varicella vaccination Von Willebrand disease Surgical History S/P cystoscopy S/P nasal septoplasty S/P wisdom tooth extraction Family History Grandfather (Paternal) Heart disease Stroke Hypertension Grandmother (Paternal) Heart disease Stroke Hypertension Denies family history of Ovarian cancer Breast cancer Colorectal cancer Social History (Updated 12/23/20 @ 09:10 by Sergio Mittal MD) Smoking Status: Current every day smoker Tobacco Type: Cigarettes Years Smoked: 10; Cigarettes Per Day: 1/2 pack per day; Second Hand Exposure: No; Hx Alcohol Use: No Hx Substance Use: Yes Prescribed Medications: Marijuana Preferred Language: Yi Communication Ability: Effective Knitting Demonstrator Required: No Beliefs That Will Affect Care: None marital status: marital status details: raul Blanton (24) [phone] Current Living Situation: Spouse Current Living Situation Comment: lives with foster daughter and dog current occupational status: employed current occupation: contract tracer How many Children do You have: 2 Feels Safe at Home: Yes Assistive Devices: None Allergies Allergies Allergy/AdvReac Type Severity Reaction Status Date / Time codeine AdvReac Intermediate Nausea Verified 01/10/21 01:28 metoclopramide [From Reglan] AdvReac Anxiety Verified 01/10/21 01:28 Home Meds Home Medications Medication Instructions Recorded Confirmed acetaminophen [Tylenol] 650 mg PO Q6H PRN 05/14/19 01/10/21 prenat.vits,maikel,voz-cabv-ldsyu 1 tab PO DAILY 05/15/20 01/10/21 famotidine 20 mg PO BID PRN 11/25/20 01/10/21 Results & Data (ED) Vital Signs Vital Signs - 24 hr 01/09/21 23:40 01/10/21 01:30 01/10/21 01:37 Temperature 36.3 C L Temperature Source Temporal Artery Scan Pulse Rate 67 66 74 Respiratory Rate 18 24 13 Respiratory Effort / Characteristics Non-Labored Respiratory Depth Normal Blood Pressure 127/84 129/78 Blood Pressure Mean 98 95 Pulse Oximetry 98 97 Oxygen Delivery Method Room Air Room Air Sepsis Recent Fever Within 48 Hours No Sepsis New/Unexplained Change in Mental Status No Sepsis Action Taken by Nursing No Action Required 01/10/21 02:00 01/10/21 02:01 Temperature Temperature Source Pulse Rate 58 L 59 L Respiratory Rate 20 16 Respiratory Effort / Characteristics Respiratory Depth Blood Pressure 110/73 Blood Pressure Mean 85 Pulse Oximetry Oxygen Delivery Method Sepsis Recent Fever Within 48 Hours Sepsis New/Unexplained Change in Mental Status Sepsis Action Taken by Nursing Laboratory Data Result diagrams: 01/10/21 01:00 01/10/21 01:00 Lab Results 01/10/21 01/10/21 01/10/21 Range/Units 01:00 01:00 01:00 WBC 10.38 (4.8-10.8) K/uL RBC 4.46 (4.2-5.4) M/uL Hgb 13.1 (12.0-16.0) g/dL Hct 39.3 (37-47) % MCV 88.1 (80-100) fL MCH 29.4 (25-34) pg MCHC 33.3 (32-36) g/dL RDW Std Deviation 42.0 (36.4-46.3) fL RDW Coeff of Liberty 13.0 (11.5-14.5) % Plt Count 538 H (130-400) K/uL MPV 9.3 (7.4-10.4) fL Immature Gran % (Auto) 0.3 % Neut % (Auto) 60.4 % Lymph % (Auto) 28.3 % Pope % (Auto) 7.6 % Eos % (Auto) 3.2 % Baso % (Auto) 0.2 % Neut # (Auto) 6.27 (1.4-6.5) K/uL Lymph # (Auto) 2.94 (1.2-3.4) K/uL Pope # (Auto) 0.79 H (0.11-0.59) K/uL Eos # (Auto) 0.33 (0-0.5) K/uL Baso # (Auto) 0.02 (0-0.2) K/uL Immature Gran # (Auto) 0.03 H (0.00-0.02) K/uL Sodium 139 (136-145) mmol/L Potassium 3.7 (3.5-5.1) mmol/L Chloride 107 (98-107) mmol/L Carbon Dioxide 24 (21-32) mmol/L Anion Gap 8.0 (3-11) BUN 15 (7-18) mg/dl Creatinine 0.51 L (0.6-1.2) mg/dl Est Cr Clr Drug Dosing 156.6 ml/min Est GFR ( Amer) > 150.0 ml/min Est GFR (Non-Af Amer) 133.6 ml/min BUN/Creatinine Ratio 29.3 H (10-20) Glucose 94 (70-99) mg/dl Calcium 9.2 (8.5-10.1) mg/dl Total Bilirubin 0.3 (0.2-1) mg/dl AST 163 H (15-37) U/L ALT 101 H (12-78) U/L Alkaline Phosphatase 135 H (45-117) U/L Total Protein 7.8 (6.4-8.2) gm/dl Albumin 3.6 (3.4-5.0) gm/dl Globulin 4.2 H (2.5-4.0) gm/dl Albumin/Globulin Ratio 0.9 (0.9-2) Lipase 966 H (73-393) U/L Urine Color Yellow Urine Appearance Clear (Clear) Urine pH 6.0 (4.5-7.5) Ur Specific Sher[place] 1.008 (1.000-1.030) Urine Protein Negative (Negative) Urine Glucose (UA) Negative (Negative) Urine Ketones Negative (Negative) Urine Blood 2+ H (Negative) Urine Nitrite Negative (Negative) Urine Bilirubin Negative (Negative) Urine Urobilinogen Negative (Negative) Ur Leukocyte Esterase 1+ H (Negative) Urine WBC (Auto) 5-10 H (0-5) /hpf Urine RBC (Auto) 0-4 (0-4) /hpf U Hyaline Cast (Auto) 1-5 (0-5) /lpf U Epithel Cells (Auto) 20-30 H (0-5) /lpf Urine Bacteria (Auto) Negative (Negative) COVID-19 Eval Order SARS-CoV-2 (PCR) (Negative) 01/10/21 01/10/21 Range/Units 03:20 03:20 WBC (4.8-10.8) K/uL RBC (4.2-5.4) M/uL Hgb (12.0-16.0) g/dL Hct (37-47) % MCV (80-100) fL MCH (25-34) pg MCHC (32-36) g/dL RDW Std Deviation (36.4-46.3) fL RDW Coeff of Liberty (11.5-14.5) % Plt Count (130-400) K/uL MPV (7.4-10.4) fL Immature Gran % (Auto) % Neut % (Auto) % Lymph % (Auto) % Pope % (Auto) % Eos % (Auto) % Baso % (Auto) % Neut # (Auto) (1.4-6.5) K/uL Lymph # (Auto) (1.2-3.4) K/uL Pope # (Auto) (0.11-0.59) K/uL Eos # (Auto) (0-0.5) K/uL Baso # (Auto) (0-0.2) K/uL Immature Gran # (Auto) (0.00-0.02) K/uL Sodium (136-145) mmol/L Potassium (3.5-5.1) mmol/L Chloride (98-107) mmol/L Carbon Dioxide (21-32) mmol/L Anion Gap (3-11) BUN (7-18) mg/dl Creatinine (0.6-1.2) mg/dl Est Cr Clr Drug Dosing ml/min Est GFR ( Amer) ml/min Est GFR (Non-Af Amer) ml/min BUN/Creatinine Ratio (10-20) Glucose (70-99) mg/dl Calcium (8.5-10.1) mg/dl Total Bilirubin (0.2-1) mg/dl AST (15-37) U/L ALT (12-78) U/L Alkaline Phosphatase (45-117) U/L Total Protein (6.4-8.2) gm/dl Albumin (3.4-5.0) gm/dl Globulin (2.5-4.0) gm/dl Albumin/Globulin Ratio (0.9-2) Lipase (73-393) U/L Urine Color Urine Appearance (Clear) Urine pH (4.5-7.5) Ur Specific Sherwood (1.000-1.030) Urine Protein (Negative) Urine Glucose (UA) (Negative) Urine Ketones (Negative) Urine Blood (Negative) Urine Nitrite (Negative) Urine Bilirubin (Negative) Urine Urobilinogen (Negative) Ur Leukocyte Esterase (Negative) Urine WBC (Auto) (0-5) /hpf Urine RBC (Auto) (0-4) /hpf U Hyaline Cast (Auto) (0-5) /lpf U Epithel Cells (Auto) (0-5) /lpf Urine Bacteria (Auto) (Negative) COVID-19 Eval Order Covid19 at [facility] SARS-CoV-2 (PCR) NEGATIVE (Negative) Administered Medications Discontinued Medications Sodium Chloride (Nss) 500 mls @ 999 mls/hr IV .Q31M ONE Stop: 01/10/21 01:40 Last Infusion: 01/10/21 02:33 Dose: 0 mls/hr Documented by: [id number] Admin: 01/10/21 01:25 Dose: 999 mls/hr Documented by: [id number] Ketorolac Tromethamine (Ketorolac 30 Mg/Ml Vial) 30 mg IV NOW ONE Stop: 01/10/21 01:11 Last Admin: 01/10/21 01:26 Dose: 30 mg Documented by: [id number] Ondansetron HCl (Ondansetron Inj 2 Mg/Ml 2 Ml Vial) 4 mg IV NOW STA Stop: 01/10/21 01:11 Last Admin: 01/10/21 01:25 Dose: 4 mg Documented by: [id number] Discharge Plan Visit Data Chief Complaint: Abdominal Pain Stated Complaint: ABDOMINAL PAIN ED Provider: Naomie Guajardo Discharge Problem: Gallstone pancreatitis Forms Stand Alone Forms: [facility] Prescriptions Prescriptions: No Action prenat.vits,maikel,iye-gbda-phlfq Tablet 1 tab PO DAILY RF: 0 acetaminophen [Tylenol] 325 mg Tablet 650 mg PO Q6H PRN (Reason: Pain) RF: 0 famotidine 20 mg tablet 20 mg PO BID PRN (Reason: HEARTBURN/INDIGESTION) RF: 0
[2021-01-10 01:30] LABS: Alanine Aminotransferase 101 U/L (12-78); Albumin Level 3.6 gm/dl (3.4-5.0); Aspartate Aminotransferase 163 U/L (15-37); BUN Creatinine Ratio 29.3 (10-20); Blood Urea Nitrogen 15 mg/dl (7-18); Calcium 9.2 mg/dl (8.5-10.1); Carbon Dioxide 24 mmol/L (21-32); Chloride 107 mmol/L (98-107); Creatinine Clr Calc Pharmacy 156.6 ml/min; Est GFR (African American) > 150.0 ml/min; Est GFR (Non-African American) 133.6 ml/min; Glucose 94 mg/dl (70-99); Lipase 966 U/L (73-393); Potassium 3.7 mmol/L (3.5-5.1); Sodium 139 mmol/L (136-145)
[2021-01-10 01:33] LABS: Albumin Globulin Ratio 0.9 (0.9-2); Alkaline Phosphatase 135 U/L (45-117); Bilirubin,Total 0.3 mg/dl (0.2-1); Globulin 4.2 gm/dl (2.5-4.0); Total Protein 7.8 gm/dl (6.4-8.2)
--- NOTE | 2021-01-10 03:50 | History & Physical Report ---
Date of Service January 10, 2021 Assessment & Plan (1) Gallstone pancreatitis: Present time I recommended the patient be admitted to the hospital and plan for laparoscopic cholecystectomy cholangiogram on this admission for recurrent pancreatitis We will have hematology see the patient and try to titrate her DDAVP dose prior to surgery Risk and complication of surgery were explained to the patient including bleeding infection converting to an open procedure and she would like to proceed accordingly All questions were answered Present on Admission?: Yes History of Present Illness Chief Complaint: Symptomatic cholelithiasis with secondary pancreatitis Primary Care Provider: Francisca Hurley PA-C This 25-year-old female who delivered beginning of December/2020 after being treated for acute pancreatitis 2 weeks prior to her delivery also receiving Von Willebrand treatment for type I with DDAVP 1 hour prior to her came into the ER with significant nausea work-up revealed her lipase to be slightly elevated although certainly improved from a month ago scheduled to have her surgery done in February electively She had been seen here by oncology hematology Dr. Hairston She was diagnosed at age 3 with von Willebrand's and has received at least 4 treatments prior to elective procedure Her most recent episode of nausea developed after she had a chicken salad Allergies Allergy/AdvReac Type Severity Reaction Status Date / Time codeine AdvReac Intermediate Nausea Verified 01/10/21 01:28 metoclopramide [From Reglan] AdvReac Anxiety Verified 01/10/21 01:28 Home Medications Medication Instructions Recorded Confirmed Type acetaminophen [Tylenol] 650 mg PO Q6H PRN 05/14/19 01/10/21 History prenat.vits,maikel,ikv-itwt-slibc 1 tab PO DAILY 05/15/20 01/10/21 History famotidine 20 mg PO BID PRN 11/25/20 01/10/21 History Past Med/Surg History Medical History Anxiety no meds Depression no meds Gallstone pancreatitis 11/24/20 - plan to have gallbladder removed in January GERD (gastroesophageal reflux disease) History of hysterosalpingogram Hyperemesis affecting , antepartum Interstitial cystitis Varicella vaccination Von Willebrand disease Surgical History S/P cystoscopy S/P nasal septoplasty S/P wisdom tooth extraction Family History Grandfather (Paternal) Heart disease Stroke Hypertension Grandmother (Paternal) Heart disease Stroke Hypertension Denies family history of Ovarian cancer Breast cancer Colorectal cancer Social History (Updated 12/23/20 @ 09:10 by Sergio Mittal MD) Smoking Status: Current every day smoker Tobacco Type: Cigarettes Years Smoked: 10; Cigarettes Per Day: 1/2 pack per day; Second Hand Exposure: No; Hx Alcohol Use: No Hx Substance Use: Yes Prescribed Medications: Marijuana Preferred Language: Bolivian Communication Ability: Effective Straw Hat Presser Required: No Beliefs That Will Affect Care: None marital status: marital status details: raul Blanton (24) [phone] Current Living Situation: Spouse Current Living Situation Comment: lives with foster daughter and dog current occupational status: employed current occupation: contract tracer How many Children do You have: 2 Feels Safe at Home: Yes Assistive Devices: None Physical Exam Physical Exam: Presently she is alert coherent next to her sleeping partner Constitutional: WD/WN, vitals as above well developed and average body habitus Eyes: PERRL, conjunctivae normal, anicteric sclerae Respiratory: normal respiratory effort Cardiovascular: Rate/Rhythm: regular rate Gastrointestinal (Abdomen): Inspection/Auscultation: abdomen normal to inspection No masses or tenderness Musculoskeletal: Extremities: extremities normal to inspection Results & Data Results & Data ([facility]) Vital Signs (Past 12 Hours) Vital Signs Temp Pulse Resp BP Pulse Ox 01/10/21 02:01 59 L 16 01/10/21 02:00 58 L 20 110/73 01/10/21 01:37 74 13 01/10/21 01:30 66 24 129/78 97 01/09/21 23:40 36.3 C L 67 18 127/84 98 PG Care Time/CCT Total # of Minutes Spent Total Time Spent with Patient: Total time spent is greater than 50% in coordination of care (as documented) at patient's floor/unit and/or counseling patient: Coding Level of Care Code 10726 Initial Inpt Care Lvl 2 Diagnoses Gallstone pancreatitis K85.10
[2021-01-10] MEDS: HYDROmorphone INJ 0.5 MG/0.5 ML SYR IV PRN ×2 (05:58→15:11)
[2021-01-10] MEDS: LACTATED RINGER'S 1,000 ML IV SCH ×3 (06:26→19:31)
[2021-01-10] MEDS ORDERED: DESMOPRESSIN ACETATE 20 MCG in SODIUM CHLORIDE 0.9% 50 ML IV SCH (09:30)
--- NOTE | 2021-01-10 10:20 | Anesthesiology Consultation ---
Date of Service January 10, 2021 Assessment & Plan (1) Encounter for pre-operative examination: Chart Review Chart Review: Acceptable Risk for Surgery and Patient NOT seen in Pre Admission Testing DDAVP to be given one hour prior to procedure. Covid neg. Consults Requested none History Surgery Operation Date: 01/10/21 11:00 Proposed Procedures p Laparoscopic Cholecystectomy - Eduin Mclain MD, FACS Height/Weight Height: 5 ft 3 in Weight: 68 kg Allergies Allergy/AdvReac Type Severity Reaction Status Date / Time codeine AdvReac Intermediate Nausea Verified 01/10/21 01:28 metoclopramide [From Reglan] AdvReac Anxiety Verified 01/10/21 01:28 Medications Home Medications Medication Instructions Recorded Confirmed Last Taken acetaminophen [Tylenol] 650 mg PO Q6H PRN 05/14/19 01/10/21 12/22/20 23:00 prenat.vits,maikel,hcy-elzn-yxgcw 1 tab PO DAILY 05/15/20 01/10/21 12/22/20 famotidine 20 mg PO BID PRN 11/25/20 01/10/21 12/22/20 oxycodone-acetaminophen [Percocet] 1 - 2 tab PO Q4H PRN #12 tab 01/10/21 Unknown Active Medications Generic Name Dose Route Start Last Admin Trade Name Freq PRN Reason Stop Dose Admin Hydromorphone HCl 0.5 mg 01/10/21 03:36 01/10/21 05:58 Hydromorphone Inj 0.5 Mg/0.5 Ml Syr IV 01/24/21 03:35 0.5 mg Q3RWA PRN Administration Pain Lactated Ringer's 1,000 mls @ 125 mls/hr 01/10/21 05:52 01/10/21 06:26 Lr IV 02/09/21 05:51 125 mls/hr .Q8H ALFONZO Administration Desmopressin Acetate 20 mcg/ 55 mls @ 100 mls/hr 01/10/21 09:30 01/10/21 10:52 Sodium Chloride IV 01/10/21 12:00 100 mls/hr TODAY@0930 ALFONZO Administration Past Medical History Medical History (Updated 01/10/21 @ 10:21 by Baldo Mendenhall MD) Anxiety no meds Depression no meds Gallstone pancreatitis 11/24/20 - plan to have gallbladder removed in January GERD (gastroesophageal reflux disease) History of hysterosalpingogram Interstitial cystitis Varicella vaccination Von Willebrand disease Past Family History Family History Grandfather (Paternal) Heart disease Stroke Hypertension Grandmother (Paternal) Heart disease Stroke Hypertension Denies family history of Ovarian cancer Breast cancer Colorectal cancer Past Surgical History Surgical History S/P cystoscopy S/P nasal septoplasty S/P wisdom tooth extraction performed [facility] 12/2020. DDAVP given prior to procedure. Patient tolerated SAB without incident. EBL estimated at 600ml (normal range for C section). Social History Smoking Status: Current every day smoker tobacco type: cigarettes Smoking cigarettes per day: 10 Hx Alcohol Use: No Hx Substance Use: No substance use type: does not use Physical Exam Vital Signs Last Vital Signs Temp 36.4 C L 01/10/21 07:26 Pulse 55 L 01/10/21 07:26 Resp 16 01/10/21 07:26 BP 126/72 01/10/21 07:26 Pulse Ox 95 01/10/21 07:26 Testing Laboratory Results 01/10/21 01:00 01/10/21 01:00 Urine Color Yellow 01/10/21 01:00 Urine Appearance Clear (Clear) 01/10/21 01:00 Urine pH 6.0 (4.5-7.5) 01/10/21 01:00 Ur Specific [place] 1.008 (1.000-1.030) 01/10/21 01:00 Urine Protein Negative (Negative) 01/10/21 01:00 Urine Glucose (UA) Negative (Negative) 01/10/21 01:00 Urine Ketones Negative (Negative) 01/10/21 01:00 Urine Nitrite Negative (Negative) 01/10/21 01:00 Ur Leukocyte Esterase 1+ (Negative) H 01/10/21 01:00 Urine WBC (Auto) 5-10 /hpf (0-5) H 01/10/21 01:00 Urine RBC (Auto) 0-4 /hpf (0-4) 01/10/21 01:00 U Hyaline Cast (Auto) 1-5 /lpf (0-5) 01/10/21 01:00 U Epithel Cells (Auto) 20-30 /lpf (0-5) H 01/10/21 01:00 Urine Bacteria (Auto) Negative (Negative) 01/10/21 01:00
[2021-01-10] MEDS ORDERED: ONDANSETRON INJ 2 MG/ML 2 ML VIAL ONE (11:17)
[2021-01-10] MEDS ORDERED: DEXAMETHASONE SOD INJ 4 MG/ML VIAL ONE (11:17)
[2021-01-10] MEDS ORDERED: LIDOCAINE 2% 2 ML VIAL/AMP(20MG/ML) INFIL ONE (11:17)
[2021-01-10] MEDS ORDERED: fentaNYL citrate 100 MCG/2 ML VIAL ONE ×2 (11:17→12:09)
[2021-01-10] MEDS ORDERED: PROPOFOL IV EMULSION 10 MG/ML 20 ML VIAL IV ONE (11:17)
[2021-01-10] MEDS ORDERED: MIDAZOLAM HCL 1 MG/ML 2ML VIAL ONE (11:17)
[2021-01-10] MEDS ORDERED: LIDOCAINE/EPINEPHRINE 1% 20 ML VIAL ONE (11:30)
[2021-01-10] MEDS ORDERED: HYDROmorphone INJ 1 MG/ML SYRINGE IV PRN (11:35)
[2021-01-10] MEDS ORDERED: ATROPINE SULFATE 0.1 MG/ML 10ML SYR IV PRN (11:35)
[2021-01-10] MEDS ORDERED: ePHEDrine sulfate 50 MG/ML AMP IV PRN (11:35)
[2021-01-10] MEDS ORDERED: ONDANSETRON INJ 2 MG/ML 2 ML VIAL IV PRN (11:35)
[2021-01-10] MEDS ORDERED: SUGAMMADEX SODIUM 200 MG/2 ML VIAL IV ONE (11:35)
[2021-01-10] MEDS ORDERED: ROCURONIUM BROMIDE 10 MG/ML 5 ML VIAL IV ONE (12:25)
--- NOTE | 2021-01-10 12:32 | Post Operative Brief Note ---
PG Immediate Post Op with CF Date of Surgery January 10, 2021 Pre & Post Diagnosis Operation Date: 01/10/21 11:00 Pre-Op Diagnosis: Symptomatic Cholelethiasis Post-Op Diagnosis: Symptomatic Cholelethiasis I identified the patient and participated in the time-out.: Yes Procedure Operation Date: 01/10/21 11:00 Actual Procedures p Laparoscopic Cholecystectomy with Cholangiogram(Not Applicable) - Ediun Mclain MD, FACS Surgeon Eduin Mclain MD, FACS Principal Librarian b lamar pablo Estimated Blood Loss 5 Findings Consistent with Post-Op Diagnosis Specimens Specimen Description: A: Gallbladder and contents
[2021-01-10] MEDS ORDERED: OPTIRAY 300 IV ONE (12:33)
--- NOTE | 2021-01-10 12:41 | Operative Report ---
PG Post Operative Report Pre & Post Diagnosis Operation Date: 01/10/21 11:00 Pre-Op Diagnosis: Symptomatic Cholelethiasis Post-Op Diagnosis: Symptomatic Cholelethiasis I identified the patient and participated in the time-out.: Yes Procedure Operation Date: 01/10/21 11:00 Actual Procedures p Laparoscopic Cholecystectomy with Cholangiogram(Not Applicable) - Eduin Mclain MD, FACS Patient was brought in operating room under general anesthesia supine position abdomen prepped Betadine solution properly draped timeout was had patient was identified small incision made supraumbilically sufficient to place a Veress needle followed by CO2 followed by 5 mm trocar there was minimal oozing from the incision the patient had received with von Willebrand factor proximally an hour before and this point on direct visualization the 5 mm epigastric 2 5 mm subcostal ports were placed with preemptive local analgesic patient was placed in reverse Trendelenburg position gallbladder was identified elevated and adhesions of the gallbladder were taken down by blunt dissection dissected down towards the triangle ROMEL created a window at the takeoff of the cystic duct sufficient enough at this point we were able to place a clip at its takeoff small opening cystic duct was made #4 urethral catheter transversing abdominal wall and a 14 Angiocath was positioned cystic duct serial x-rays were taken which showed free flow duodenum no obstruction no filling defects this point clip was removed catheter was removed the cystic duct was doubly clipped se curely and divided artery seemed identified takeoff doubly clipped and divided gallbladder removed in antegrade fashion using electrocautery prior to freeing the gallbladder from the liver bed we checked the gallbladder fossa the early any bleeding. Gallbladder was placed in Endopouch taken out intact through the epigastric port after this been completed the subhepatic suprahepatic area was checked when stasis appears satisfactory we placed the camera right upper quadrant port site visualize the umbilical entry site which we had done with a Veress needle there was no bleeding appreciated and under direct visualization the camera and umbilical area individual trochars right upper quadrant and epigastric area were taken out with no bleeding identified the last umbilical taken out wounds were closed 4-0 Monocryl Steri-Strips applied procedure was tolerated well by the estimated blood loss 5 cc addendumB Mindy pablo was present throughout the procedure and helped with retraction exposure and wound closure addendum Called Rocky mendoza at [phone] no answer left a generic voicemail Surgeon Eduin Mclain MD, FACS Master Rigger b mindy pablo Estimated Blood Loss 5 Findings Consistent with Post-Op Diagnosis Specimens gallbladder Description of Procedure merda I attest to the content of the Intraoperative Record and any orders documented therein. Any exceptions are noted below.
[2021-01-10] MEDS ORDERED: oxyCODONE/ACETAMINOPHEN 5mg/325mg TAB PO PRN ×2 (12:49)
[2021-01-10] MEDS ORDERED: PROMETHAZINE HCL 6.25 MG in SODIUM CHLORIDE 0.9% 50 ML IV PRN (12:59)
[2021-01-10] MEDS: fentaNYL citrate 100 MCG/2 ML VIAL IV PRN ×2 (13:00→13:05)
[2021-01-10] MEDS ORDERED: GLYCOPYRROLATE 0.2 MG/ML VIAL ONE (13:00)
[2021-01-10] MEDS ORDERED: NEOSTIGMINE METHYLSULFATE 1 MG/ML 10ML VIAL ONE (13:00)
--- NOTE | 2021-01-10 13:55 | Fluoroscopy Report ---
FL cholangiogram OR CLINICAL HISTORY: LAP AYESHA WITH CHOLANGIOGRAM COMPARISON STUDY: CT T of the abdomen and pelvis November 24, 2020. Right upper quadrant ultrasound Nov. FLUOROSCOPY TIME: 1 second. FLUOROSCOPIC IMAGES: 2 FINDINGS: Fluoroscopy was provided during intraoperative cholangiogram. There is contrast within the duodenum. No filling defect is identified within the common bile duct to suggest choledocholithiasis. No biliary ductal dilatation is identified. Intrahepatic bile ducts are partially opacified. There i s apparent multifocal narrowing within the opacified intrahepatic bile ducts. IMPRESSION: 1. No filling defects to suggest choledocholithiasis. 2. Apparent multifocal narrowing within the intrahepatic bile ducts. This may be artifactual and be r elated to incomplete opacification. However, an etiology such as primary sclerosing cholangitis canno t be completely excluded. This could be correlated with liver function tests and MRCP. ACT 112: Negative or not required by law. Electronically signed by: Mike Medeiros M.D. 01/10/2021 1:53 PM
--- NOTE | 2021-01-10 14:05 | Anesthesiology Progress Note ---
Date of Service January 10, 2021 Anesthesia Post Procedure Vital Signs Vital Signs: Temp Pulse Pulse Pulse Resp BP BP 01/10/21 13:35 36.4 C L 46 L 16 122/75 01/10/21 13:25 45 L 16 130/75 01/10/21 13:15 44 L 16 112/46 L 01/10/21 13:05 49 L 16 110/70 01/10/21 12:56 36.0 C L 55 L 16 114/64 01/10/21 07:26 36.4 C L 55 L 16 01/10/21 05:43 36.6 C 66 14 01/10/21 02:01 59 L 16 01/10/21 02:00 58 L 20 110/73 01/10/21 01:37 74 13 01/10/21 01:30 66 24 129/78 01/09/21 23:40 36.3 C L 67 18 127/84 BP Pulse Ox 01/10/21 13:35 98 01/10/21 13:25 100 01/10/21 13:15 100 01/10/21 13:05 100 01/10/21 12:56 100 01/10/21 07:26 126/72 95 01/10/21 05:43 98/64 L 96 01/10/21 02:01 01/10/21 02:00 01/10/21 01:37 01/10/21 01:30 97 01/09/21 23:40 98 Transfer of Care Handoff Completed per policy Notes Mental Status: alert / awake / arousable and participated in evaluation Patient Amnestic to Procedure: Yes Nausea / Vomiting: adequately controlled Pain: adequately controlled Airway Patency, RR, SpO2: stable & adequate BP & HR: stable & adequate Hydration State: stable & adequate Anesthetic Complications: no major complications apparent and Pt Satisfied with anesthetic care
[2021-01-10 16:43] LABS: Basophils # (auto) 0.01 K/uL (0-0.2); Basophils % (auto) 0.1 %; Eosinophils # (auto) 0.02 K/uL (0-0.5); Eosinophils % (auto) 0.1 %; Hematocrit (blood only) 32.7 % (37-47); Hemoglobin 10.6 g/dL (12.0-16.0); Immature Granulocytes # (auto) 0.04 K/uL (0.00-0.02); Immature Granulocytes % (auto) 0.3 %; Lymphocytes # (auto) 0.84 K/uL (1.2-3.4); Lymphocytes % (auto) 5.6 %; Mean Corpuscular Hemoglobin 29.2 pg (25-34); Mean Corpuscular Volume 90.1 fL (80-100); Monocytes # (auto) 0.08 K/uL (0.11-0.59); Monocytes % (auto) 0.5 %; Neutrophils % (auto) 93.4 %; Platelet Count 458 K/uL (130-400); RDW Coefficient of Variation 13.1 % (11.5-14.5); RDW Standard Deviation 43.4 fL (36.4-46.3); Red Blood Count 3.63 M/uL (4.2-5.4); White Blood Count 14.99 K/uL (4.8-10.8)
[2021-01-10 16:57] LABS: BUN Creatinine Ratio 25.2 (10-20); Creatinine Clr Calc Pharmacy 128.4 ml/min; Est GFR (African American) 145.3 ml/min; Est GFR (Non-African American) 125.3 ml/min; Magnesium 2.1 mg/dl (1.8-2.4); Phosphorus 3.6 mg/dl (2.5-4.9); Potassium 4.1 mmol/L (3.5-5.1)
--- NOTE | 2021-01-10 17:12 | Surgery Progress Note ---
Date of Service January 10, 2021 Assessment & Plan (1) Hypotension: stable, current BP 104/67, HR 74 being transferred to PCU for further monitoring Hgb 10.6 from 13.1 on admission, mostly dilutional we believe, was on IVF 125 overnight and no intra-operative bleeding seen with Dr. Mclain Admission and Anticipated Discharge Date Admission Date: January 10, 2021 Supervising Physician Co-Signing Physician Notes Recent events are reviewed For the time I saw the patient's blood pressure 60 with a heart rate 55 complaining of some abdominal pain right sided in her shoulders likely from the pneumoperitoneum I discussed the situation with Dr. Hairston the oncologist net developer and felt that probably the drop in hemoglobin may have been dilutional as I feel this patient when she first came in she may be hemoconcentrated that she had been vomiting At this time 17;40 the patient is sitting up in bed using the milk pump tolerated diet and overall feels fine and discomfort she had before subsided We will repeat a hemoglobin later this evening Medical service follow also We will obtain a sodium level in the morning Subjective awake alert at present, code purple called after given dilaudid 0.5mg for 9/10 pain around 3:00 Physical Exam Gastrointestinal (Abdomen): Inspection/Auscultation: + abdominal surgical incision (dry) Percussion/Palpation: abdomen soft Results & Data ([facility]) Vital Signs (Past 12 Hours) Vital Signs Temp Pulse Pulse Resp BP BP Pulse Ox 01/10/21 17:02 36.7 C 74 15 104/67 97 01/10/21 14:45 36.7 C 61 16 115/71 96 01/10/21 14:15 36.7 C 50 L 14 120/78 96 01/10/21 13:35 36.4 C L 46 L 16 122/75 98 01/10/21 13:25 45 L 16 130/75 100 01/10/21 13:15 44 L 16 112/46 L 100 01/10/21 13:05 49 L 16 110/70 100 01/10/21 12:56 36.0 C L 55 L 16 114/64 100 01/10/21 07:26 36.4 C L 55 L 16 126/72 95 01/10/21 05:43 36.6 C 66 14 98/64 L 96 PG Care Time/CCT Total # of Minutes Spent Total Time Spent with Patient: Total time spent is greater than 50% in coordination of care (as documented) at patient's floor/unit and/or counseling patient: Coding Level of Care Code None Diagnoses Hypotension I95.9
[2021-01-10 17:25] LABS: Mean Corpuscular Hgb Conc 32.4 g/dL (32-36)
[2021-01-10] MEDS ORDERED: LACTATED RINGER'S 1,000 ML IV ONE (17:43)
--- NOTE | 2021-01-10 17:49 | Hospitalist Consultation ---
Date of Consultation January 10, 2021 Assessment & Plan (1) Hypotension: 25-year-old female with a past medical history of von Willebrand's disease, tobacco use, and gallstone pancreatitis who status post at 39 and 0/7 weeks at the beginning of December 2020 and lap cholecystectomy on experienced acute postoperative hypotension medicine service consulted for management. #Acute postoperative hypotension Did well in the immediate postoperative. Evaluated the patient and management as described above. Patient reported significant improvement status post fluid rehydration. Upon review of patient's recent history, suspect hypotension is related to medication, stress of the surgery, and metabolism of anesthesia. -Obtained stat labs demonstrating a hemoglobin drop of 2 points. -Suspect hemoglobin drop is dilutional Per report no intraoperative bleeding and patient is on IVF at 125 overnight -Consulted with Dr. Hairston given history of von Willebrand's disease we will repeat H&H at 9 PM this evening. If less than 8 give 2 units of blood -Type and screen ordered, blood on hold -Gave 1 L bolus of LR -Monitor Vitals q4h -Judicious use of pain medication as hypotension may have been secondary to analgesia #Postop day 1 status post cholecystectomy See above -Routine postop care per surgery #Von Willebrand's disease History of diagnosed at 3 years old, and had 4 prior treatments for elective surgeries. -Hematology oncology consulted appreciate recommendations #Tobacco use Provide counseling FENa: 1 L LR bolus advance diet as tolerated Code Status: Full code DVT PPX: Ambulation PT/OT: Not indicated Dispo: Erwin Montgomery MD PGY 2, FCM This chart was completed utilizing [employer] voice recognition software. Grammatical errors, random word insertions, pronoun errors, and in complete s entences are an occasional consequence of the system. Any questions or concerns about the content, text, or information contained within the body of this dictation should be addressed directly to the physician for clarification. (2) state: (3) Anxiety and depression: (4) Gallstone pancreatitis: Supervising Physician Co-Signing Physician Notes Resident Physician Supervision Note: I independently interviewed and examined the patient and verified the pollock history and physical, reviewed labs and image studies and agree with resident Dr. Kayden Montgomery findings and care plan. History of Present Illness Attending Physician: Eduin Mclain MD, FACS History of Present Illness 25-year-old female with a past medical history of von Willebrand's disease, tobacco use, and gallstone pancreatitis who status post at 39 and 0/7 weeks at the beginning of December 2020. She was treated for acute pancreatitis 2 weeks prior to her delivery and evaluated by Dr. Hairston for von Willebrand's recommendations prior to delivery. She presented to the ER at 1 AM on January 10, 2021 she is currently 2 weeks and was reporting having an episode of severe epigastric pain proximately 16 hours prior to presentation and recurrent pain approximately 3 hours prior to presentation. Patient also has nausea and vomiting, she was previously scheduled to have a cholecystectomy on February 26. General surgery was consulted evaluated the patient and planned for laparoscopic cholecystectomy and angiogram for recurrent pancreatitis. Prior to her operation she did receive the treatment DDAVP. She tolerated the procedure well, and did well in the immediate postoperative period. Assuming she met her postoperative milestones she was scheduled for discharge this evening. At approximately 4:30 PM a zackary bah was called and myself and were the first physicians to arrive. We were alerted that the patient was currently status post lap neil and had become acutely hypotensive with symptoms of nausea and general malaise. The patient was conscious and conversive throughout the interaction. She stated she did not remember much except for waking up from surgery. And this was the first time she had been fully conscious since her procedure. She also noted right-sided abdominal pain. We increased her fluids to wide open and obtain stat labs. CBC notable for a white count of 14.99, hemoglobin of 10.6 demonstrating a drop from 13.1 preoperatively, platelet of 458. Chem-7 was notable for a glucose of 121 otherwise within normal limits. At that time the patient specifically denied chest pressure, chest pain, shortness of breath, vomiting, feverish, focal neurological deficits, sensory deficits, incontinence, other concerning signs and features. The patient con tinued to be asymptomatic and was monitored until her pressures stabilized. Only reporting right-sided abdominal pain and tenderness. Allergies Allergy/AdvReac Type Severity Reaction Status Date / Time codeine AdvReac Intermediate Nausea Verified 01/10/21 01:28 metoclopramide [From Reglan] AdvReac Anxiety Verified 01/10/21 01:28 Home Medications Medication Instructions Recorded Confirmed Type acetaminophen [Tylenol] 650 mg PO Q6H PRN 05/14/19 01/10/21 History prenat.vits,maikel,lwy-doms-vbciw 1 tab PO DAILY 05/15/20 01/10/21 History famotidine 20 mg PO BID PRN 11/25/20 01/10/21 History oxycodone-acetaminophen [Percocet] 1 - 2 tab PO Q4H PRN #12 tab 01/10/21 Rx Patient History Medical History Anxiety no meds Depression no meds Gallstone pancreatitis 11/24/20 - plan to have gallbladder removed in January GERD (gastroesophageal reflux disease) History of hysterosalpingogram Interstitial cystitis Varicella vaccination Von Willebrand disease Surgical History S/P cystoscopy S/P nasal septoplasty S/P wisdom tooth extraction Family History Grandfather (Paternal) Heart disease Stroke Hypertension Grandmother (Paternal) Heart disease Stroke Hypertension Denies family history of Ovarian cancer Breast cancer Colorectal cancer Social History Smoking Status: Current every day smoker Tobacco Type: Cigarettes Years Smoked: 10; Cigarettes Per Day: 10; Second Hand Exposure: No; Hx Alcohol Use: No Hx Substance Use: No Preferred Language: Telugu Communication Ability: Effective Race Steward Required: No Beliefs That Will Affect Care: None marital status: marital status details: raul Blanton [phone] Current Living Situation: Spouse Current Living Situation Comment: Major, 2 week old daughter, dog current occupational status: employed current occupation: contract tracer How many Children do You have: 2 Feels Safe at Home: Yes Safety Concerns: Feels Safe At This Time Assistive Devices: None Physical Exam Physical Exam: General: Anxious female lying in bed HEENT: Normocephalic atraumatic Neck: Normal to visual inspection, trachea midline Cardiac: Regular rate and rhythm I did not appreciate significant murmurs rubs or gallops, normal S1, normal S2, negative pedal edema, negative calf tenderness Respiratory: Clear to auscultation bilaterally with symmetrical chest expansion did not appreciate significant wheezes, rales, rhonchi no increased work of breathing. GI: Right upper quadrant tender to palpation, no visible ecchymosis on her bilateral flanks, surgical site appears clean dry and intact MSK: Moves all extremities Neuro: Alert and oriented x4 Psych: Cooperative with the interview Results & Data Results & Data ([facility]) Vital Signs (Past 12 Hours) Vital Signs Temp Pulse Pulse Resp BP BP Pulse Ox 01/10/21 17:02 36.7 C 74 15 104/67 97 01/10/21 14:45 36.7 C 61 16 115/71 96 01/10/21 14:15 36.7 C 50 L 14 120/78 96 01/10/21 13:35 36.4 C L 46 L 16 122/75 98 01/10/21 13:25 45 L 16 130/75 100 01/10/21 13:15 44 L 16 112/46 L 100 01/10/21 13:05 49 L 16 110/70 100 01/10/21 12:56 36.0 C L 55 L 16 114/64 100 01/10/21 07:26 36.4 C L 55 L 16 126/72 95 01/10/21 05:43 36.6 C 66 14 98/64 L 96 Laboratory Results 01/10/21 01/10/21 01/10/21 Range/Units 16:35 16:35 16:25 WBC 14.99 H (4.8-10.8) K/uL RBC 3.63 L (4.2-5.4) M/uL Hgb 10.6 L (12.0-16.0) g/dL Hct 32.7 L (37-47) % MCV 90.1 (80-100) fL MCH 29.2 (25-34) pg MCHC 32.4 (32-36) g/dL RDW Std Deviation 43.4 (36.4-46.3) fL RDW Coeff of [place] 13.1 (11.5-14.5) % Plt Count 458 H (130-400) K/uL MPV 9.0 (7.4-10.4) fL Immature Gran % (Auto) 0.3 % Neut % (Auto) 93.4 % Lymph % (Auto) 5.6 % [place] % (Auto) 0.5 % Eos % (Auto) 0.1 % Baso % (Auto) 0.1 % Neut # (Auto) 14.00 H (1.4-6.5) K/uL Lymph # (Auto) 0.84 L (1.2-3.4) K/uL [place] # (Auto) 0.08 L (0.11-0.59) K/uL Eos # (Auto) 0.02 (0-0.5) K/uL Baso # (Auto) 0.01 (0-0.2) K/uL Immature Gran # (Auto) 0.04 H (0.00-0.02) K/uL Sodium 142 (136-145) mmol/L Potassium 4.1 (3.5-5.1) mmol/L Chloride 109 H (98-107) mmol/L Carbon Dioxide 26 (21-32) mmol/L Anion Gap 7.0 (3-11) BUN 16 (7-18) mg/dl Creatinine 0.62 (0.6-1.2) mg/dl Est Cr Clr Drug Dosing 128.4 ml/min Est GFR ( Amer) 145.3 ml/min Est GFR (Non-Af Amer) 125.3 ml/min BUN/Creatinine Ratio 25.2 H (10-20) Glucose 121 H (70-99) mg/dl POC Glucose 144 H (70-99) mg/dl Calcium 8.0 L (8.5-10.1) mg/dl Phosphorus 3.6 (2.5-4.9) mg/dl Magnesium 2.1 (1.8-2.4) mg/dl Total Bilirubin (0.2-1) mg/dl AST (15-37) U/L ALT (12-78) U/L Alkaline Phosphatase (45-117) U/L Total Protein (6.4-8.2) gm/dl Albumin (3.4-5.0) gm/dl Globulin (2.5-4.0) gm/dl Albumin/Globulin Ratio (0.9-2) Lipase (73-393) U/L Urine Color Urine Appearance (Clear) Urine pH (4.5-7.5) Ur Specific [place] (1.000-1.030) Urine Protein (Negative) Urine Glucose (UA) (Negative) Urine Ketones (Negative) Urine Blood (Negative) Urine Nitrite (Negative) Urine Bilirubin (Negative) Urine Urobilinogen (Negative) Ur Leukocyte Esterase (Negative) Urine WBC (Auto) (0-5) /hpf Urine RBC (Auto) (0-4) /hpf U Hyaline Cast (Auto) (0-5) /lpf U Epithel Cells (Auto) (0-5) /lpf Urine Bacteria (Auto) (Negative) COVID-19 Eval Order SARS-CoV-2 (PCR) (Negative) 01/10/21 01/10/21 01/10/21 Range/Units 03:20 03:20 01:00 WBC (4.8-10.8) K/uL RBC (4.2-5.4) M/uL Hgb (12.0-16.0) g/dL Hct (37-47) % MCV (80-100) fL MCH (25-34) pg MCHC (32-36) g/dL RDW Std Deviation (36.4-46.3) fL RDW Coeff of [place] (11.5-14.5) % Plt Count (130-400) K/uL MPV (7.4-10.4) fL Immature Gran % (Auto) % Neut % (Auto) % Lymph % (Auto) % [place] % (Auto) % Eos % (Auto) % Baso % (Auto) % Neut # (Auto) (1.4-6.5) K/uL Lymph # (Auto) (1.2-3.4) K/uL [place] # (Auto) (0.11-0.59) K/uL Eos # (Auto) (0-0.5) K/uL Baso # (Auto) (0-0.2) K/uL Immature Gran # (Auto) (0.00-0.02) K/uL Sodium (136-145) mmol/L Potassium (3.5-5.1) mmol/L Chloride (98-107) mmol/L Carbon Dioxide (21-32) mmol/L Anion Gap (3-11) BUN (7-18) mg/dl Creatinine (0.6-1.2) mg/dl Est Cr Clr Drug Dosing ml/min Est GFR ( Amer) ml/min Est GFR (Non-Af Amer) ml/min BUN/Creatinine Ratio (10-20) Glucose (70-99) mg/dl POC Glucose (70-99) mg/dl Calcium (8.5-10.1) mg/dl Phosphorus (2.5-4.9) mg/dl Magnesium (1.8-2.4) mg/dl Total Bilirubin (0.2-1) mg/dl AST (15-37) U/L ALT (12-78) U/L Alkaline Phosphatase (45-117) U/L Total Protein (6.4-8.2) gm/dl Albumin (3.4-5.0) gm/dl Globulin (2.5-4.0) gm/dl Albumin/Globulin Ratio (0.9-2) Lipase (73-393) U/L Urine Color Yellow Urine Appearance Clear (Clear) Urine pH 6.0 (4.5-7.5) Ur Specific [place] 1.008 (1.000-1.030) Urine Protein Negative (Negative) Urine Glucose (UA) Negative (Negative) Urine Ketones Negative (Negative) Urine Blood 2+ H (Negative) Urine Nitrite Negative (Negative) Urine Bilirubin Negative (Negative) Urine Urobilinogen Negative (Negative) Ur Leukocyte Esterase 1+ H (Negative) Urine WBC (Auto) 5-10 H (0-5) /hpf Urine RBC (Auto) 0-4 (0-4) /hpf U Hyaline Cast (Auto) 1-5 (0-5) /lpf U Epithel Cells (Auto) 20-30 H (0-5) /lpf Urine Bacteria (Auto) Negative (Negative) COVID-19 Eval Order Covid19 at [facility] SARS-CoV-2 (PCR) NEGATIVE (Negative) 01/10/21 01/10/21 Range/Units 01:00 01:00 WBC 10.38 (4.8-10.8) K/uL RBC 4.46 (4.2-5.4) M/uL Hgb 13.1 (12.0-16.0) g/dL Hct 39.3 (37-47) % MCV 88.1 (80-100) fL MCH 29.4 (25-34) pg MCHC 33.3 (32-36) g/dL RDW Std Deviation 42.0 (36.4-46.3) fL RDW Coeff of [place] 13.0 (11.5-14.5) % Plt Count 538 H (130-400) K/uL MPV 9.3 (7.4-10.4) fL Immature Gran % (Auto) 0.3 % Neut % (Auto) 60.4 % Lymph % (Auto) 28.3 % [place] % (Auto) 7.6 % Eos % (Auto) 3.2 % Baso % (Auto) 0.2 % Neut # (Auto) 6.27 (1.4-6.5) K/uL Lymph # (Auto) 2.94 (1.2-3.4) K/uL [place] # (Auto) 0.79 H (0.11-0.59) K/uL Eos # (Auto) 0.33 (0-0.5) K/uL Baso # (Auto) 0.02 (0-0.2) K/uL Immature Gran # (Auto) 0.03 H (0.00-0.02) K/uL Sodium 139 (136-145) mmol/L Potassium 3.7 (3.5-5.1) mmol/L Chloride 107 (98-107) mmol/L Carbon Dioxide 24 (21-32) mmol/L Anion Gap 8.0 (3-11) BUN 15 (7-18) mg/dl Creatinine 0.51 L (0.6-1.2) mg/dl Est Cr Clr Drug Dosing 156.6 ml/min Est GFR ( Amer) > 150.0 ml/min Est GFR (Non-Af Amer) 133.6 ml/min BUN/Creatinine Ratio 29.3 H (10-20) Glucose 94 (70-99) mg/dl POC Glucose (70-99) mg/dl Calcium 9.2 (8.5-10.1) mg/dl Phosphorus (2.5-4.9) mg/dl Magnesium (1.8-2.4) mg/dl Total Bilirubin 0.3 (0.2-1) mg/dl AST 163 H (15-37) U/L ALT 101 H (12-78) U/L Alkaline Phosphatase 135 H (45-117) U/L Total Protein 7.8 (6.4-8.2) gm/dl Albumin 3.6 (3.4-5.0) gm/dl Globulin 4.2 H (2.5-4.0) gm/dl Albumin/Globulin Ratio 0.9 (0.9-2) Lipase 966 H (73-393) U/L Urine Color Urine Appearance (Clear) Urine pH (4.5-7.5) Ur Specific [place] (1.000-1.030) Urine Protein (Negative) Urine Glucose (UA) (Negative) Urine Ketones (Negative) Urine Blood (Negative) Urine Nitrite (Negative) Urine Bilirubin (Negative) Urine Urobilinogen (Negative) Ur Leukocyte Esterase (Negative) Urine WBC (Auto) (0-5) /hpf Urine RBC (Auto) (0-4) /hpf U Hyaline Cast (Auto) (0-5) /lpf U Epithel Cells (Auto) (0-5) /lpf Urine Bacteria (Auto) (Negative) COVID-19 Eval Order SARS-CoV-2 (PCR) (Negative) Medications Administered Current Inpatient Medications Atropine Sulfate (Atropine Sulfate 0.1 Mg/Ml 10ml Syr) 0.5 mg IV Q1M PRN PRN Reason: PACU Use-HR<40 &/or Bradycardi Stop: 01/10/21 19:35 Ephedrine Sulfate (Ephedrine Sulfate 50 Mg/Ml Amp) 5 mg IV Q5M PRN PRN Reason: PACU Use Only-SBP<90 mmHg Stop: 01/10/21 19:35 Fentanyl Citrate (Fentanyl Citrate 100 Mcg/2 Ml Vial) 25 mcg IV Q5M PRN PRN Reason: PACU Use Only-Pain Stop: 01/10/21 19:35 Last Admin: 01/10/21 13:05 Dose: 25 mcg Documented by: Hydromorphone HCl (Hydromorphone Inj 1 Mg/Ml Syringe) 0.25 mg IV Q5M PRN PRN Reason: PACU Use Only-Pain Stop: 01/10/21 19:35 Lactated Ringer's (Lr) 1,000 mls @ 125 mls/hr IV .Q8H ALFONZO Stop: 02/09/21 05:51 Last Admin: 01/10/21 17:08 Dose: 125 mls/hr Documented by: Promethazine HCl 6.25 mg/ (Sodium Chloride) 50.25 mls @ 204 mls/hr IV ONCE PRN PRN Reason: PACU Use Only-Nausea/Vomiting Stop: 01/10/21 21:00 Last Admin: 01/10/21 13:10 Dose: 204 mls/hr Documented by: Ondansetron HCl (Ondansetron Inj 2 Mg/Ml 2 Ml Vial) 4 mg IV Q4H PRN PRN Reason: Nausea And Vomiting Stop: 02/09/21 05:51 Ondansetron HCl (Ondansetron Inj 2 Mg/Ml 2 Ml Vial) 4 mg IV ONCE PRN PRN Reason: PACU Use Only-Nausea/Vomiting Stop: 01/10/21 19:35 Oxycodone/Acetaminophen (Oxycodone/Acetaminophen 5mg/325mg Tab) 1 tab PO Q4H PRN PRN Reason: Pain Stop: 01/24/21 12:48 Oxycodone/Acetaminophen (Oxycodone/Acetaminophen 5mg/325mg Tab) 2 tab PO Q4H PRN PRN Reason: Pain Stop: 01/24/21 12:48 Resident Activity Tracking Resident Involvement: Resident Care Provided Care Provided: Adult Hospital Medicine
[2021-01-10 21:18] LABS: Hematocrit (blood only) 31.1 % (37-47)
[2021-01-11 07:19] LABS: Basophils # (auto) 0.01 K/uL (0-0.2); Basophils % (auto) 0.1 %; Eosinophils # (auto) 0.04 K/uL (0-0.5); Eosinophils % (auto) 0.3 %; Hematocrit (blood only) 25.6 % (37-47); Hemoglobin 8.5 g/dL (12.0-16.0); Immature Granulocytes # (auto) 0.04 K/uL (0.00-0.02); Immature Granulocytes % (auto) 0.3 %; Lymphocytes # (auto) 3.31 K/uL (1.2-3.4); Lymphocytes % (auto) 22.9 %; Mean Corpuscular Hemoglobin 29.1 pg (25-34); Mean Corpuscular Hgb Conc 33.2 g/dL (32-36); Mean Corpuscular Volume 87.7 fL (80-100); Mean Platelet Volume 9.1 fL (7.4-10.4); Monocytes # (auto) 0.87 K/uL (0.11-0.59); Neutrophils # (auto) 10.21 K/uL (1.4-6.5); Neutrophils % (auto) 70.4 %; Platelet Count 449 K/uL (130-400); RDW Coefficient of Variation 12.9 % (11.5-14.5); RDW Standard Deviation 42.3 fL (36.4-46.3); Red Blood Count 2.92 M/uL (4.2-5.4); White Blood Count 14.48 K/uL (4.8-10.8)
[2021-01-11 07:47] LABS: BUN Creatinine Ratio 30.7 (10-20); Blood Urea Nitrogen 15 mg/dl (7-18); Calcium 7.7 mg/dl (8.5-10.1); Carbon Dioxide 24 mmol/L (21-32); Chloride 106 mmol/L (98-107); Creatinine Clr Calc Pharmacy 165.9 ml/min; Est GFR (African American) > 150.0 ml/min; Est GFR (Non-African American) 136.3 ml/min; Glucose 97 mg/dl (70-99); Potassium 3.8 mmol/L (3.5-5.1); Sodium 137 mmol/L (136-145)
[2021-01-11] MEDS ORDERED: ACETAMINOPHEN 500 MG TAB PO PRN (08:04)
--- NOTE | 2021-01-11 08:33 | Surgery Progress Note ---
Date of Service January 11, 2021 Assessment & Plan (1) Gallstone pancreatitis: POD 1 lap neil hgb continues to drift 8.5, HR/BP stable continue to monitor H&H seen with Dr. Mclain Admission and Anticipated Discharge Date Admission Date: January 10, 2021 Subjective some pain, tolerating diet Physical Exam Gastrointestinal (Abdomen): Inspection/Auscultation: + abdominal surgical incision (dry) Percussion/Palpation: abdomen soft Results & Data ([facility]) Vital Signs (Past 12 Hours) Vital Signs Temp Pulse Resp BP Pulse Ox 01/11/21 07:27 36.8 C 64 16 107/70 96 01/11/21 04:35 37.0 C 82 16 107/66 97 01/10/21 23:24 37.1 C 102 H 18 108/65 96 PG Care Time/CCT Total # of Minutes Spent Total Time Spent with Patient: Total time spent is greater than 50% in coordination of care (as documented) at patient's floor/unit and/or counseling patient: Coding Level of Care Code None Diagnoses Gallstone pancreatitis K85.10
[2021-01-11] MEDS ORDERED: SODIUM CHLORIDE 0.9% 250 ML IV PRN ×3 (11:25→12:18)
--- NOTE | 2021-01-11 12:05 | Medical Student Progress Note ---
Date of Service January 11, 2021 Assessment & Plan (1) Hypotension: Ms. Eng is a 25-year-old female with a past medical history of von Willebrand's disease, tobacco use, and gallstone pancreatitis who s/p at 39 and 0/7 weeks for indication of intolerance of labor and oligohydra mnios on 12/23 and lap cholecystectomy on 01/10/21 with medicine consult for post- operative hypotension. (1) Acute postoperative hypotension: - Did well in the immediate postoperative setting. Patient reported symptomatic improvement after fluid bolus. Blood pressure stable today. - Hemoglobin 13.1 on admission, 10 post-op, now 8.5 today. - Ddx: hemodilution, continued bleeding. - Given concern for continued bleeding, will get CT scan with and without IV contrast. - Consulted with Dr. Hairston, will give unit of blood given Hgb of 8.5 + symptoms. - Continue LR 50 mL/hour. - Monitor Vitals q4h. - Judicious use of pain medication as hypotension may have been secondary to analgesia. (2) S/p Cholecystectomy for Indication of Gallstone Pancreatitis - POD #1: - See above - Routine postop care per surgery (3) Von Willebrand's disease: - History of diagnosed at 3 years old, and had 4 prior treatments for elective surgeries. - Hematology oncology consulted appreciate recommendations - Patient given DDAVP pre-op. Confirmed with pharmacy. - Low threshold for additional DDAVP given continued drop in hemoglobin. - CT abdomen pelvis demonstrating postoperative changes of cholecystectomy and recent , pneumoperitoneum with moderate amount of blood products within the pelvis, trace pneumoperitoneum likely postoperative -Given 20 mcg DDAVP IV -Follow-up a.m. CBC, if still evidence of bleeding would redose of DDAVP (4) Tobacco use: Provide counseling Dispo: Med-Surg FEN: Regular Diet Code: Full Code VTE: Ambulation (2) state: (3) Anxiety and depression: (4) Gallstone pancreatitis: Admission and Anticipated Discharge Date Admission Date: January 10, 2021 Supervising Attestation I personally examined the patient and verified all pollock points of history and exam, discussed case, and agree with decision making with Reinier Torrez. Abdominal painfeels like bad gas pain. Hemoglobin down. Case discussed with heme-oncinput appreciated. Vitals noted, in general she is awake and alert pleasant but appears uncomfortable. HEENT normocephalic atraumatic mucous membranes moist. Abdomen is distended moderate diffuse tenderness worst left middle abdomen questionable rebound no guarding or rigidity. Worsening abdominal painconcern on hemoperitoneum given her dropping hemoglobin and von Willebrandcontinue to follow closely, discussed with heme-oncgive 1 unit of blood, possibly needing further DDAVP (late addendum after CT we will g jos) check CT scan to evaluate for hemoperitoneum or other worsening abdominal pathology (late addendum hemoperitoneum notedon review it seems likely to be a problem that will be medical management to stop bleeding, and pain control/supportive care, but Dr. Montgomery is reaching out to surgery to ensure they are aware in case any intervention would be needed.) Otherwise as above Subjective Ms. Eng reports headache and significant 'gas pain' today. She states that the headache is mild but bifrontal. The abdominal pain is diffuse. She has not been up and ambulating today but does not report any dizziness or lightheadedness. She has reduced appetite but is tolerating PO intake well. She has not passed flatus or had a bowel movement since surgery. Review of Systems Review of Systems: All systems reviewed & are unremarkable except as noted in HPI & below Gastrointestinal: + abdominal pain; no nausea and no vomiting Physical Exam Physical Exam: Patient is resting comfortably in bed on exam. Appears fatigued and pale but in no acute distress. Constitutional: well developed, well nourished, + ill appearing and cooperative; no acute distress Respiratory: normal respiratory effort, lungs clear to auscultation Cardiovascular: RRR, no murmur, no edema Gastrointestinal (Abdomen): Inspection/Auscultation: abdomen normal to inspection, + abdomen distended, normal bowel sounds and + abdominal surgical incision; no abdominal wall ecchymosis and Dodge-Plummer sign absent Percussion/Palpation: + abdomen tender and abdomen soft; no guarding, abdomen not rigid and abdomen not firm Musculoskeletal: no cyanosis or clubbing, extremities motor strength 5/5 Skin: no rashes, warm and dry Psychiatric: A+Ox3, euthymic affect Results & Data ([facility]) Vital Signs (Past 12 Hours) Vital Signs Temp Pulse Pulse Resp BP BP Pulse Ox 01/11/21 11:46 36.4 C L 64 16 118/77 01/11/21 07:27 36.8 C 64 16 107/70 96 01/11/21 04:35 37.0 C 82 16 107/66 97 Laboratory Results 01/11/21 01/11/21 01/10/21 06:41 06:41 20:52 WBC 14.48 H RBC 2.92 L Hgb 8.5 L 10.0 L Hct 25.6 L 31.1 L MCV 87.7 MCH 29.1 MCHC 33.2 RDW Std Deviation 42.3 RDW Coeff of [place] 12.9 Plt Count 449 H MPV 9.1 Immature Gran % (Auto) 0.3 Neut % (Auto) 70.4 Lymph % (Auto) 22.9 [place] % (Auto) 6.0 Eos % (Auto) 0.3 Baso % (Auto) 0.1 Neut # (Auto) 10.21 H Lymph # (Auto) 3.31 [place] # (Auto) 0.87 H Eos # (Auto) 0.04 Baso # (Auto) 0.01 Immature Gran # (Auto) 0.04 H Sodium 137 Potassium 3.8 Chloride 106 Carbon Dioxide 24 Anion Gap 7.0 BUN 15 Creatinine 0.48 L Est Cr Clr Drug Dosing 165.9 Est GFR ( Amer) > 150.0 Est GFR (Non-Af Amer) 136.3 BUN/Creatinine Ratio 30.7 H Glucose 97 POC Glucose Calcium 7.7 L Phosphorus Magnesium Lipase Blood Type Antibody Screen Crossmatch 01/10/21 01/10/21 01/10/21 18:02 16:35 16:35 WBC 14.99 H RBC 3.63 L Hgb 10.6 L Hct 32.7 L MCV 90.1 MCH 29.2 MCHC 32.4 RDW Std Deviation 43.4 RDW Coeff of [place] 13.1 Plt Count 458 H MPV 9.0 Immature Gran % (Auto) 0.3 Neut % (Auto) 93.4 Lymph % (Auto) 5.6 [place] % (Auto) 0.5 Eos % (Auto) 0.1 Baso % (Auto) 0.1 Neut # (Auto) 14.00 H Lymph # (Auto) 0.84 L [place] # (Auto) 0.08 L Eos # (Auto) 0.02 Baso # (Auto) 0.01 Immature Gran # (Auto) 0.04 H Sodium 142 Potassium 4.1 Chloride 109 H Carbon Dioxide 26 Anion Gap 7.0 BUN 16 Creatinine 0.62 Est Cr Clr Drug Dosing 128.4 Est GFR ( Amer) 145.3 Est GFR (Non-Af Amer) 125.3 BUN/Creatinine Ratio 25.2 H Glucose 121 H POC Glucose Calcium 8.0 L Phosphorus 3.6 Magnesium 2.1 Lipase 71 L Blood Type A Positive Antibody Screen NEGATIVE Crossmatch See Detail 01/10/21 16:25 WBC RBC Hgb Hct MCV MCH MCHC RDW Std Deviation RDW Coeff of [place] Plt Count MPV Immature Gran % (Auto) Neut % (Auto) Lymph % (Auto) [place] % (Auto) Eos % (Auto) Baso % (Auto) Neut # (Auto) Lymph # (Auto) [place] # (Auto) Eos # (Auto) Baso # (Auto) Immature Gran # (Auto) Sodium Potassium Chloride Carbon Dioxide Anion Gap BUN Creatinine Est Cr Clr Drug Dosing Est GFR ( Amer) Est GFR (Non-Af Amer) BUN/Creatinine Ratio Glucose POC Glucose 144 H Calcium Phosphorus Magnesium Lipase Blood Type Antibody Screen Crossmatch Medications Administered Current Inpatient Medications Acetaminophen (Acetaminophen 500 Mg Tab) 1,000 mg PO Q8 PRN PRN Reason: Pain Stop: 02/10/21 08:03 Last Admin: 01/11/21 08:50 Dose: 1,000 mg Documented by: Lactated Ringer's (Lr) 1,000 mls @ 50 mls/hr IV .Q20H ALFONZO Stop: 02/09/21 05:51 Last Infusion: 01/11/21 11:52 Dose: 0 mls/hr Documented by: Sodium Chloride (Nss) 250 mls @ 15 mls/hr IV .[id number] PRN PRN Reason: For Transfusion Stop: 01/11/21 21:26 Sodium Chloride (Nss) 250 mls @ 15 mls/hr IV .[id number] PRN PRN Reason: For Transfusion Stop: 01/11/21 22:03 Sodium Chloride (Nss) 250 mls @ 15 mls/hr IV .[id number] PRN PRN Reason: For Transfusion Stop: 01/11/21 22:18 Ondansetron HCl (Ondansetron Inj 2 Mg/Ml 2 Ml Vial) 4 mg IV Q4H PRN PRN Reason: Nausea And Vomiting Stop: 02/09/21 05:51 Oxycodone/Acetaminophen (Oxycodone/Acetaminophen 5mg/325mg Tab) 1 tab PO Q4H PRN PRN Reason: Pain Stop: 01/24/21 12:48 Oxycodone/Acetaminophen (Oxycodone/Acetaminophen 5mg/325mg Tab) 2 tab PO Q4H PRN PRN Reason: Pain Stop: 01/24/21 12:48 Last Admin: 01/10/21 21:32 Dose: 2 tab Documented by:
--- NOTE | 2021-01-11 14:26 | Consultation Report ---
DATE OF CONSULTATION: 01/11/2021 REASON FOR CONSULTATION: Type 1 von Willebrand's disease in a pleasant 25-year-old female status post laparoscopic cholecystectomy. HISTORY OF PRESENT ILLNESS: The patient is a very pleasant 25-year-old patient well known to [facility]CP with history of type 1 von Willebrand's disease. She actually just delivered a healthy infant a couple of weeks ago, received a pre-delivery DDAVP without incident. I had actually seen patient in the office on 12/16/2020 in preparation of the impending delivery and she informed me at that time that she will be undergoing an elective cholecystectomy and I asked her to get a hold of me when surgery was planned. I was contacted by Dr. Mclain over the weekend alerting me to patient's admission to hospital in preparation to perform emergent cholecystectomy. Apparently, patient had some severe cramping and pain prompting her to come to the hospital. Thus contacted the nursing unit and provided verbal order for 20 mcg of DDAVP and 50 mL of saline to be administered 30-60 minutes prior to surgery. Surgery was successful; however, Dr. Mclain was concerned with the patient's drop in hemoglobin to around 10 grams per deciliter. He reported very little if no bleeding intraoperatively. This morning, her hemoglobin has dropped a little bit more to 8.5 grams per deciliter. I visited the patient at bedside. She was utilizing a breast pump and felt reasonably well. I then spoke to Dr. Flowers by phone shortly after my visit with the patient explaining the need to provide a unit of blood to see if the patient is indeed bleeding to monitor H and H once transfused. I could appreciate no visible evidence of bleeding at bedside. The patient has yet to move her bowels postoperatively. PAST MEDICAL HISTORY: Again, she is otherwise healthy, type 1 von Willebrand's disease. PAST SURGICAL HISTORY: Status post rhinoplasty. MEDICATIONS: Prior to admission, famotidine 20 mg p.o. b.i.d. p.r.n., vitamins 1 tablet p.o. daily, Tylenol 650 mg p.o. q. 6 hours p.r.n. ALLERGIES: METOCLOPRAMIDE AND CODEINE. FAMILY HISTORY: Paternal grandfather suffered from heart disease, stroke, and hypertension. Paternal grandmother heart disease, stroke, and hypertension as well. SOCIAL HISTORY: The patient is an everyday smoker, half pack per day x10 years. She is . REVIEW OF SYSTEMS: CONSTITUTIONAL: Negative for fevers, chills or sweats. She is not anorexic or losing weight, again recently delivered a healthy a couple of weeks ago. SKIN: No rashes or lesions. HEENT: Negative for headaches, lightheadedness or dizziness. No dysphagia or sore throat. LYMPH: No history of lymphoproliferative disease. CARDIAC: Negative for angina or palpitations. PULMONARY: Negative for shortness of breath, dyspnea or orthopnea. No cough or hemoptysis. GASTROINTESTINAL: Negative for abdominal pain, nausea, vomiting, recent laparoscopic cholecystectomy. She has not moved her bowels since surgery. GENITOURINARY: No hematuria, dysuria, urinary incontinence. PSYCHIATRIC: Negative for anxiety, depression or psychoses. ENDOCRINE: Negative for diabetes or thyroid disease. NEUROLOGIC: Negative for seizure, stroke, or migraine headache. HEMATOLOGIC: Positive for leukocytosis and anemia. PHYSICAL EXAMINATION: GENERAL: Very pleasant 25-year-old female sitting at bedside, in no acute distress. VITAL SIGNS: Temperature 36.8, pulse 64, respiratory rate 16, blood pressure 107/70. SKIN: Warm, dry, noncyanotic without petechia, rash or ecchymosis. HEENT: Head is atraumatic, normocephalic. Eyes: PERRLA. Nares patent without rhinorrhea or discharge. Throat is clear. Tongue is midline. Mucous membranes are moist. NECK: Supple without JVD or thyromegaly. HEART: Regular rate and rhythm. No clicks, rubs, murmurs or gallops. LUNGS: Clear to auscultation bilaterally. ABDOMEN: Surgical wound was closed without evidence of oozing. EXTREMITIES: No clubbing, cyanosis or edema. NEUROLOGICALLY: She is awake, alert and oriented x3. Cranial nerves are grossly intact. LABORATORY DATA: WBC count 14,480, hemoglobin 8.5, platelet count 449,000, absolute neutrophil count 10,210. Sodium 137, potassium 3.8, chloride 106, carbon dioxide 24, creatinine 0.48, BUN 15. IMPRESSION: 1. Status post cholecystectomy (laparoscopic). 2. Type 1 von Willebrand's disease. 3. Recent vaginal delivery. PLAN: In summary, the patient is a very pleasant 25-year-old patient well known to [facility] with type 1 von Willebrand's disease. The patient recently delivered a healthy , was pretreated with DDAVP with no incident thereafter. She was seen in my outpatient clinic on 12/16/2020 at which time I outlined plan for her to receive DDAVP leading up to delivery. She also informed me during the appointment she was planning a cholecystectomy because of chronic gallbladder issues and asked her to have Dr. Lau contact me. Unfortunately, she became symptomatic over the weekend and was admitted to [facility] under Dr. Mclain's care. Instructed nursing staff to place an order for a DDAVP, which was administered 30-60 minutes prior to surgery. Dr. Mclain reported little to no intra or postoperative bleeding. Nonetheless, the hemoglobin dropped to 10 grams per deciliter from baseline of 13. I'm not terribly concerned as I believe there was a dilution as a main factor. That said, she dropped another gram and a half leading up to today. When I was reviewing her blood counts today, I took notice of her platelet count being elevated, which is most likely reactive. Considering she recently delivered a healthy , perhaps she may be iron deficient as well. We will ask the hospitalist to order a serum ferritin, iron and TIBC. I am not convinced that she is actually bleeding and had instructed transfusion of 1 unit of packed RBCs with careful monitoring the H and H moving forward. I have asked the hospitalist to keep the patient here another 24-48 hours. I will continue to follow her on a daily basis. Thank you very much for allowing me to participate in her care. DANIEL
[2021-01-11] MEDS ORDERED: OPTIRAY 350 500ml IV ONE (15:26)
--- NOTE | 2021-01-11 16:00 | CT Scan Report ---
ABDOMEN AND PELVIS CT WITH IV AND ORAL CONTRAST CT DOSE: 667.06 mGycm HISTORY: Acute generalized abdominal pain with anemia. Status post on 12/23/2020. Laparoscop ic cholecystectomy on 01/10/2021. Abdominal pain hgb drop TECHNIQUE: Multiaxial CT images of the abdomen and pelvis were performed following the IV administrat ion of 98 cc of Optiray and oral contrast. A dose lowering technique was utilized adhering to the pr inciples of ALICIA. COMPARISON STUDY: CT abdomen and pelvis 11/24/2020 FINDINGS: The imaged inferior cardiac chambers are unremarkable. Trace pleural effusions with mild de pendent bibasilar consolidation. Small amount of pneumoperitoneum within the abdomen and pelvis. Ther e are a few small soft tissue nodules of the abdominal left upper quadrant are suggestive of splenule s. The spleen is unremarkable. The pancreas and adrenal glands are unremarkable. Cholecystectomy. Pat ency of the hepatic and portal veins. Unremarkable kidneys and urinary bladder. Enlarged heterogeneou s post gravid appearance of the uterus. Small volume of abdominal pelvic ascites with layering hemope ritoneum within the pelvis. Hemorrhagic debris within the pelvis measures up to 10 x 5 x 8 cm. Normal appendix. Unremarkable breast parenchyma. And scar of the lower anterior abdominal wall. S ubcutaneous edema and emphysema of the periumbilical tissues, likely postsurgical. No acute fracture. IMPRESSION: 1. Postoperative changes of cholecystectomy and recent section with enlarged post gravid cindy earance of the uterus. 2. Hemoperitoneum with moderate amount of blood products within the pelvis. 3. Trace pneumoperitoneum is likely on a postoperative basis. 4. Trace pleural effusions. 5. No bowel obstruction or bowel wall thickening. ACT 112: Negative or not required by law. The above report was generated using voice recognition software. It may contain grammatical, syntax o r spelling errors. Electronically signed by: Abel Moran M.D. 01/11/2021 3:59 PM
[2021-01-11] MEDS ORDERED: MoRPHine SULFATE 4 MG/ML 1 ML CARP\\VIAL IV PRN (17:04)
--- NOTE | 2021-01-11 17:04 | Billing Data ---
Date of Service January 11, 2021 Coding Level of Care Code 88315 Subseq Hosp Care Lvl 3
[2021-01-11] MEDS ORDERED: DESMOPRESSIN ACETATE 20 MCG in SODIUM CHLORIDE 0.9% 50 ML IV ONE (17:15)
[2021-01-11 17:39] LABS: Hematocrit (blood only) 30.7 % (37-47); Hemoglobin 10.4 g/dL (12.0-16.0)
[2021-01-11] MEDS: LACTATED RINGER'S 1,000 ML IV SCH (17:53)
[2021-01-11] MEDS: ACETAMINOPHEN 500 MG TAB PO SCH (20:01)
--- NOTE | 2021-01-11 21:35 | Electrocardiogram Report ---
Test Reason : Blood Pressure : / mmHG Vent. Rate : 051 BPM Atrial Rate : 051 BPM P-R Int : 138 ms QRS Dur : 074 ms QT Int : 454 ms P-R-T Axes : 025 005 014 degrees QTc Int : 418 ms Sinus bradycardia Otherwise normal ECG No previous ECGs available Confirmed by Waldemar Lynne ([id number]) on 01/11/2021 9:35:05 PM Referred By: REFERRED SELF Confirmed By:Waldemar Lynne
[2021-01-11] MEDS ORDERED: ACETAMINOPHEN 500 MG TAB PO SCH (22:00)
[2021-01-12] MEDS: ACETAMINOPHEN 500 MG TAB PO SCH ×3 (03:33→19:05)
--- NOTE | 2021-01-12 06:35 | Progress Notes ---
DATE: 01/12/2021 HEMATOLOGY PROGRESS NOTE DIAGNOSES: 1. Status post cholecystectomy (laparoscopic). 2. Type 1 von Willebrand's disease. 3. Recent vaginal delivery. 4. Anemia, suspect underlying iron deficiency. SUBJECTIVE: Tara was seen and examined at bedside today. She feels much better after receiving a single unit of packed RBCs last night. I asked Dr. Flowers to monitor her H and H carefully moving forward as I still do not suspect overt bleeding per se. I took notice of her elevated platelet count and asked for iron studies to be done this morning with plans to replace intravenously as necessary. The patient admits to the expected postoperative discomfort, CT Scan of Abdomen revealed hemoperitoneum with moderate pool of blood DDAVP readministered. Patient feels better this morning. Nursing reports no overnight complaints. OBJECTIVE: GENERAL: A very pleasant 25-year-old female patient in no acute distress. VITAL SIGNS: Temperature 36.8, pulse 65, respiratory rate 16, blood pressure 107/73. SKIN: Without rash or lesion. HEENT: Buccal mucosa is clear. No lesions or erosions. HEART: Regular rate and rhythm. No clicks, rubs or murmurs. LUNGS: Clear to auscultation bilaterally. ABDOMEN: Soft, nontender, nondistended. EXTREMITIES: No clubbing, cyanosis, or edema. NEUROLOGIC: Grossly intact. LABORATORY DATA: Pending. IMPRESSION: 1. Status post laparoscopic cholecystectomy. 2. Anemia, suspect underlying iron deficiency. 3. Type 1 von Willebrand's disease. 4. Hemoperitonem. PLAN: It is my pleasure to visit with Tara again at bedside. Much more comfortable with her status. Reviewed CT Abdomen revealed Hemoperitonem which would explain drop in hemoglobin and second dose of DDAVP given with no issue. She had a nice bump post-transfusion, over 10 grams per deciliter now. Iron studies are pending this morning and we will ask to give iron sucrose 400 mg intravenously x1 before discharge. I would like to see Tara in the office in the next couple of weeks to ensure stability. No complaint of pain or discomfort this morning, other than the expected postoperative discomfort. She is hemodynamically stable. Thank you very much for allowing me to participate in her care. If there are any questions or concerns, feel free to contact me at any time. DANIEL
[2021-01-12 07:21] LABS: Hematocrit (blood only) 24.5 % (37-47); Hemoglobin 8.1 g/dL (12.0-16.0); Mean Corpuscular Hemoglobin 28.8 pg (25-34); Mean Corpuscular Hgb Conc 33.1 g/dL (32-36); Mean Corpuscular Volume 87.2 fL (80-100); Mean Platelet Volume 8.9 fL (7.4-10.4); Platelet Count 307 K/uL (130-400); RDW Standard Deviation 42.1 fL (36.4-46.3); Red Blood Count 2.81 M/uL (4.2-5.4); White Blood Count 7.25 K/uL (4.8-10.8)
[2021-01-12 07:52] LABS: Basophils # (auto) 0.04 K/uL (0-0.2); Basophils % (auto) 0.6 %; Eosinophils # (auto) 0.19 K/uL (0-0.5); Eosinophils % (auto) 2.6 %; Immature Granulocytes # (auto) 0.02 K/uL (0.00-0.02); Immature Granulocytes % (auto) 0.3 %; Lymphocytes # (auto) 3.12 K/uL (1.2-3.4); Monocytes # (auto) 0.64 K/uL (0.11-0.59); Monocytes % (auto) 8.8 %; Neutrophils # (auto) 3.24 K/uL (1.4-6.5); Neutrophils % (auto) 44.7 %
[2021-01-12] MEDS ORDERED: IRON SUCROSE 400 MG in SODIUM CHLORIDE 0.9% 250 ML IV ONE (09:30)
--- NOTE | 2021-01-12 09:48 | Surgery Progress Note ---
Date of Service January 12, 2021 Assessment & Plan (1) Gallstone pancreatitis: POD#2 lap neil Yesterday pt received 1u pRBC for Hbg drift and a CT scan was obtained and reviewed Today hbg 8.1. Vital signs are stable and patient feels improvement in her symptoms Dr. Cheema is consulting on patient and may recommend IV iron We will continue to monitor patient for now, appreciate hospitalists/dr cheema following along Admission and Anticipated Discharge Date Admission Date: January 10, 2021 Subjective Patient states she is continuing to feel better. Has some lingering abdominal and gas pains, but they are overall improving. She is tolerating a diet without nausea/vomiting. Physical Exam Physical Exam: awake/alert Constitutional: no acute distress Respiratory: normal respiratory effort Gastrointestinal (Abdomen): Inspection/Auscultation: + abdominal surgical incision (c/d/i with steri-strips in place; no signs of infection) Percussion/Palpation: + abdomen tender (mild ttp sarah-incisionally) and abdomen soft Results & Data ([facility]) Vital Signs (Past 12 Hours) Vital Signs Temp Pulse Resp BP Pulse Ox 01/12/21 07:43 36.7 C 97 H 16 125/83 92 01/12/21 03:36 36.8 C 65 16 107/73 96 01/11/21 23:05 36.9 C 79 18 111/76 98 PG Care Time/CCT Total # of Minutes Spent Total Time Spent with Patient: Total time spent is greater than 50% in coordination of care (as documented) at patient's floor/unit and/or counseling patient: Coding Level of Care Code None Diagnoses Gallstone pancreatitis K85.10
--- NOTE | 2021-01-12 09:54 | Medical Student Progress Note ---
Date of Service January 12, 2021 Assessment & Plan (1) Hypotension: Ms. Eng is a 25-year-old female with a past medical history of von Willebrand's disease, tobacco use, and gallstone pancreatitis who is s/p C- section at 39 and 0/7 weeks for indication of intolerance of labor and oligohydramnios on 12/23 and lap cholecystectomy on 01/10 with medicine consult for post-operative hypotension. (1) Acute postoperative hypotension: - Did well in the immediate postoperative setting. Patient reported symptomatic improvement after fluid bolus. Blood pressure continues to be stable since code purple on 01/10. - Hemoglobin 13.1 on admission, 10 post-op, 8.5 on 01/11, 10.4 after 1 unit pRBC; 8.9 now. Recommend follow-up tomorrow in the outpatient setting. - CT on 01/11 did show blood products in the pelvis. - Some concern for continued bleeding from surgical site but more likely due to falling levels of vWF in post- setting. - Continue LR 50 mL/hour. - Monitor Vitals q4h. - Judicious use of pain medication as hypotension may have been secondary to rosie lgesia. (2) S/p Cholecystectomy for Indication of Gallstone Pancreatitis - POD #1: - See above - Routine postop care per surgery (3) Von Willebrand's disease: - History of diagnosed at 3 years old, and had 4 prior treatments for elective surgeries. - Hematology oncology consulted appreciate recommendations. - Patient given DDAVP pre-op. Confirmed with pharmacy. - Given pRBCs and additional does of DDAVP on 01/11. - Will give one additional dose of DDAVP prior to discharge. - Consulted with Dr. Hairston, iron given today. Iron studies normal with elevated Fe in the setting of blood transfusion. (4) Tobacco use: Provide counseling Dispo: Med-Surg FEN: Regular Diet Code: Full Code VTE: Ambulation (2) state: (3) Anxiety and depression: (4) Gallstone pancreatitis: Admission and Anticipated Discharge Date Admission Date: January 10, 2021 Supervising Attestation I personally examined the patient and verified all pollock points of history and exam, discussed case, and agree with decision making with Reinier Torrez. Abdominal pain improving, earlier today was actually feeling much better overall. Later in the day she started to feel weak and lightheaded, as well as a bit pale and sweaty. Vitals noted, in general she is awake and alert pleasant but laying flat with a moist towel on her head and appearing mildly diaphoretic. HEENT normocephalic atraumatic mucous membranes are moist. Cardio is regular but may be slightly bradycardic no rubs murmurs or gallops. Lungs are clear no rales rhonchi or wheezes. Abdomen is soft mild tenderness far better than yesterday, although still present diffusely. No guarding no rebound. Extremities show no cyanosis clubbing or edema. Skin shows mild degree of pallor, no icterus. Mildly diaphoretic. Acute blood loss anemiarelated to von Willebrand's disease in the context of being about 2 weeks having had a cholecystectomy. Unfortunately she would likely be at a low point of VWF, which might explain the ongoing oozing. Fortunately she appears much more stable, she did require 1 packed red cell transfusion, as well as several doses of DDAVP, and now her hemoglobin seems to be stabilizing. LightheadednessI suspect it is a combination of a little bit orthostatic physiology from her acute blood loss anemia, although now stabilizing, she has probably not yet fully adapted to; additionally, with her abdominal pain and peristaltic bowel sounds, I suspect we have a degree of a vasovagal response. 1 L bolus givenMS 4 revisited later, and she was feeling much better. Otherwise as above Otherwise as above Subjective Ms. Eng states she is feeling much better overall today. She has been up and ambulating to the bathroom and has not had any dizziness or lightheadedness during this time or at rest. She states that her abdominal pain is much improved today. She has passed flatus but has not yet had a bowel movement. She is tolerating PO intake well. Review of Systems Review of Systems: All systems reviewed & are unremarkable except as noted in Subjective Physical Exam Physical Exam: Patient is resting comfortably on exam. Pallor greatly reduced from yesterday. Constitutional: WD/WN, vitals as above no acute distress and not ill appearing Respiratory: normal respiratory effort, lungs clear to auscultation Cardiovascular: RRR, no murmur, no edema Gastrointestinal (Abdomen): Inspection/Auscultation: abdomen normal to inspection, + abdomen distended (decreased as compared to yesterday), normal benny wel sounds and + abdominal surgical incision; Dodge-Plummer sign absent Percussion/Palpation: + abdomen tender (Mid to left sided) and abdomen soft; no guarding Musculoskeletal: no cyanosis or clubbing, extremities motor strength 5/5 Skin: no rashes, warm and dry + pallor (reduced from yesterday ) Psychiatric: A+Ox3, euthymic affect Results & Data ([facility]) Vital Signs (Past 12 Hours) Vital Signs Temp Pulse Resp BP Pulse Ox 01/12/21 07:43 36.7 C 97 H 16 125/83 92 01/12/21 03:36 36.8 C 65 16 107/73 96 01/11/21 23:05 36.9 C 79 18 111/76 98 Laboratory Results 01/12/21 01/11/21 01/10/21 06:57 17:29 18:02 WBC 7.25 RBC 2.81 L Hgb 8.1 L 10.4 L Hct 24.5 L 30.7 L MCV 87.2 MCH 28.8 MCHC 33.1 RDW Std Deviation 42.1 RDW Coeff of Liberty 13.0 Plt Count 307 MPV 8.9 Immature Gran % (Auto) 0.3 Neut % (Auto) 44.7 Lymph % (Auto) 43.0 [place] % (Auto) 8.8 Eos % (Auto) 2.6 Baso % (Auto) 0.6 Neut # (Auto) 3.24 Lymph # (Auto) 3.12 [place] # (Auto) 0.64 H Eos # (Auto) 0.19 Baso # (Auto) 0.04 Immature Gran # (Auto) 0.02 Blood Type A Positive Antibody Screen NEGATIVE Crossmatch See Detail Medications Administered Current Inpatient Medications Acetaminophen (Acetaminophen 500 Mg Tab) 1,000 mg PO Q8H ALFONZO Stop: 02/10/21 19:44 Last Admin: 01/12/21 03:33 Dose: 1,000 mg Documented by: Lactated Ringer's (Lr) 1,000 mls @ 50 mls/hr IV .Q20H ALFONZO Stop: 02/09/21 05:51 Last Infusion: 01/12/21 09:52 Dose: 0 mls/hr Documented by: Iron Sucrose 400 mg/ Sodium (Chloride) 270 mls @ 108 mls/hr IV 0930 ONE Stop: 01/12/21 11:59 Last Admin: 01/12/21 09:52 Dose: 108 mls/hr Documented by: Morphine Sulfate (Morphine Sulfate 4 Mg/Ml 1 Ml Carp\Vial) 4 mg IV Q4 PRN PRN Reason: Severe Pain Stop: 01/25/21 17:03 Ondansetron HCl (Ondansetron Inj 2 Mg/Ml 2 Ml Vial) 4 mg IV Q4H PRN PRN Reason: Nausea And Vomiting Stop: 02/09/21 05:51 Oxycodone/Acetaminophen (Oxycodone/Acetaminophen 5mg/325mg Tab) 1 tab PO Q4H PRN PRN Reason: Pain Stop: 01/24/21 12:48 Oxycodone/Acetaminophen (Oxycodone/Acetaminophen 5mg/325mg Tab) 2 tab PO Q4H PRN PRN Reason: Pain Stop: 01/24/21 12:48 Last Admin: 01/10/21 21:32 Dose: 2 tab Documented by:
[2021-01-12 13:00] LABS: Hemoglobin 8.9 g/dL (12.0-16.0); Reticulocyte % 1.4 % (0.5-2.0); Reticulocytes # 0.04 10^6/uL (0.02-0.10)
[2021-01-12 13:21] LABS: Ferritin 56.1 ng/ml (8-388)
[2021-01-12] MEDS ORDERED: LACTATED RINGER'S 1,000 ML IV ONE (14:38)
[2021-01-12] MEDS ORDERED: DESMOPRESSIN ACETATE 20 MCG in SODIUM CHLORIDE 0.9% 50 ML IV ONE (14:39)
[2021-01-12] MEDS: LACTATED RINGER'S 1,000 ML IV SCH (16:01)
[2021-01-12] MEDS: ONDANSETRON INJ 2 MG/ML 2 ML VIAL IV PRN ×2 (18:05→22:07)
--- NOTE | 2021-01-12 19:22 | Billing Data ---
Date of Service January 12, 2021 Coding Level of Care Code 29207 Subseq Hosp Care Lvl 3
[2021-01-12] MEDS ORDERED: LORazepam 1 MG/2 ML VIAL IV STA (23:04)
[2021-01-12] MEDS ORDERED: diphenhydrAMINE 50 MG/ML VIAL IV STA (23:05)
[2021-01-12] MEDS ORDERED: diphenhydrAMINE 50 MG/ML VIAL ONE (23:05)
--- NOTE | 2021-01-12 23:06 | Communication Note ---
Date of Service: January 12, 2021 Called by nursing - patient complaining of numbness, tingling and uncontrolled motion of her body and feeling of ragged breathing. Patient with difficulty s peaking - slurred speech. Was given Zofran prior to symptom onset. Has documented reaction of anxiety from Reglan On exam she is afebrile, HD stable - HR of 54 Able to answer questions appropriately - speech is halted, slightly slurred Tremulous, restless with akathisia-type motion of fingers Skin - abdominal wounds with dressing in place, no bleeding HEENT - MMM, neck supple Heart - +S1/S2, regular, bradycardic, no m/r/g Lungs - CTA, no rales/rhonchi/wheezes Abd - +BS, soft, NT Ext - No edema Neuro - tremulous, nonfocal Assessment/Plan - suspect reaction to Zofran as well as anxiety will administer IV Ativan x 1mg, IV Benadryl x 25mg CT Head without contrast given slurred speech, highly doubt acute intracranial process. Will watch closely overnight
[2021-01-13 00:24] LABS: BUN Creatinine Ratio 12.9 (10-20); Blood Urea Nitrogen 5 mg/dl (7-18); Calcium 8.2 mg/dl (8.5-10.1); Carbon Dioxide 20 mmol/L (21-32); Chloride 87 mmol/L (98-107); Creatinine Clr Calc Pharmacy 189.6 ml/min; Est GFR (African American) > 150.0 ml/min; Est GFR (Non-African American) 142.5 ml/min; Glucose 92 mg/dl (70-99); Potassium 3.2 mmol/L (3.5-5.1); Sodium 122 mmol/L (136-145)
[2021-01-13] MEDS: ACETAMINOPHEN 500 MG TAB PO SCH ×3 (04:43→20:03)
[2021-01-13 04:47] LABS: BUN Creatinine Ratio 19.6 (10-20); Blood Urea Nitrogen 5 mg/dl (7-18); Calcium 7.5 mg/dl (8.5-10.1); Carbon Dioxide 22 mmol/L (21-32); Chloride 86 mmol/L (98-107); Creatinine Clr Calc Pharmacy 294.9 ml/min; Est GFR (African American) > 150.0 ml/min; Est GFR (Non-African American) > 150.0 ml/min; Glucose 85 mg/dl (70-99); Potassium 3.6 mmol/L (3.5-5.1); Sodium 118 mmol/L (136-145)
[2021-01-13] MEDS ORDERED: SODIUM CHLORIDE 3 % 100 ML IV ONE ×2 (05:00→14:02)
--- NOTE | 2021-01-13 05:22 | Communication Note ---
Date of Service: January 13, 2021 Patient with acute hyponatremia on chemistry panel from 23:18 - On=617 from previously normal value of 137 on 01/11/21. Repeat chemistry at 04:09 with Na of 118 Patient was on LR which was discontinued Fluid restriction of 1200mL On exam patient is awake, slow to respond to questions Speech is clear but delayed Moving all extremities No seizure Assessment/Plan -Transfer to PCU for administration of 3% saline -Check serum and urine osm, urine Na -Murray for I/O monitoring -Neuro checks -Seizure precautions -Serial chemistry panel to monitor Na
--- NOTE | 2021-01-13 07:45 | CT Scan Report ---
CT head/brain wo con CLINICAL HISTORY: slurred speech POSSIBLE ACUTE STROKE COMPARISON STUDY: No previous studies for comparison. TECHNIQUE: Axial CT of the brain is performed from the vertex to the skull base. IV contrast was not administered for this examination. A dose lowering technique was utilized adhering to the principles of ALARA. CT DOSE: 537.48 mGy.cm FINDINGS: No intra or extra-axial mass lesions are visualized. There is no CT evidence of acute cortical infarc tion. There is no evidence of midline shift. There is no acute hemorrhage. No calvarial fractures ar e visualized. There is no evidence of pathologic ventricular dilatation. There is no evidence of acute sinusitis IMPRESSION: Normal noncontrast head CT. If symptoms persist, an MRI could be obtained in follow-up. ACT 112: Negative or not required by law. Electronically signed by: Stiven Dodge M.D. 01/13/2021 7:43 AM
--- NOTE | 2021-01-13 07:45 | Surgery Progress Note ---
Date of Service January 13, 2021 Assessment & Plan (1) Gallstone pancreatitis: POD#3 lap neil NA 118 AM labs pending abdomen benign seen with Dr. Mclain Admission and Anticipated Discharge Date Admission Date: January 10, 2021 Supervising Physician Co-Signing Physician Notes Denies any abdominal pain or abdomen is softer than it had been Trocar sites there is no evidence of any bleeding or hematomas She displays a classical signs of hyponatremia but appear to be slight mental fog this is being corrected Her hemoglobin appears to be stable at this time Subjective events of last night noted, no complaints pain, tolerated diet Physical Exam Gastrointestinal (Abdomen): Inspection/Auscultation: + abdominal surgical incision (dry); abdomen not distended Percussion/Palpation: abdomen soft Results & Data ([facility]) Vital Signs (Past 12 Hours) Vital Signs Temp Pulse Resp BP Pulse Ox 01/13/21 07:15 36.6 C 69 19 113/79 96 01/13/21 00:29 36.9 C 57 L 18 111/73 96 PG Care Time/CCT Total # of Minutes Spent Total Time Spent with Patient: Total time spent is greater than 50% in coordination of care (as documented) at patient's floor/unit and/or counseling patient: Coding Level of Care Code None Diagnoses Gallstone pancreatitis K85.10
--- NOTE | 2021-01-13 08:06 | Progress Notes ---
DATE: 01/13/2021 HEMATOLOGY PROGRESS NOTE DIAGNOSES: 1. Status post cholecystectomy, postoperative day #2. 2. Type 1 von Willebrand's disease. 3. Recent section. 4. Anemia, suspect underlying iron deficiency. 5. Hyponatremia. 6. Hypocalcemia. SUBJECTIVE: Tara was seen and examined at bedside. I was very alarmed her mental status has changed dramatically. There appears to be [id number] neurologic compromise. I understand her sodium dropped precipitously overnight, was transferred to monitored bed to receive 3% saline. I suspect drop in sodium is attributable to second dose of DDAVP. The patient continues to intermittently drop her hemoglobin. CT scan of the abdomen and pelvis done yesterday revealed hematoperitoneum and suspect she may still be oozing. That said, she dropped her blood pressure and now is on fluid restriction. OBJECTIVE: GENERAL: Agitated, confused, 25-year-old patient, awake and alert, answers questions appropriately. VITAL SIGNS: Temperature 36.6, pulse 69, respiratory rate 19, blood pressure 113/79. SKIN: Pale in appearance. No rashes or lesions otherwise. HEENT: Buccal mucosa is dry, no erythema or ulceration. NECK: Supple. HEART: Regular rate and rhythm. LUNGS: Clear to auscultation bilaterally. ABDOMEN: Soft. No rigidity or guarding. Bowel sounds hypoactive. EXTREMITIES: No clubbing, cyanosis, or edema. NEUROLOGICAL: She is awake and alert and again somewhat confused. LABORATORY DATA: Hemoglobin last done at 1800 hours 9.2. Sodium 118, potassium 3.6, chloride 86, carbon dioxide 22, creatinine 0.27, BUN 5. Osmolarity 233, calcium 7.5. Serum iron 562, TIBC 417, ferritin 56.1. IMPRESSION AND PLAN: 1. Hyponatremia, attributable to DDAVP. 2. Hypocalcemia. 3. Type 1 von Willebrand's disease. 4. Status post laparoscopic cholecystectomy. 5. Hematoperitoneum. Again I was very surprised when I entered Tara's room this morning as she was transferred overnight because of precipitous drop in sodium, disorientation, and agitation. She is receiving 3% sodium at the time of dictation. Her hemoglobin continues to be somewhat labile, which would suggest continued oozing perhaps into the peritoneum. Would advocate reimaging today as well as stat H and H. I will also check her coags and perhaps consider administering 5 units of cryoprecipitate. We will discuss further with Dr. Flowers. Obviously, the patient needs to continue on monitored bed for the next 24-48 hours. Agree with monitoring her chemistries q. 4 hours. Sodium and calcium will be replaced. We will continue to follow closely along with you.
[2021-01-13 08:14] LABS: Fibrinogen 357 mg/dl (184-400); Partial Thromboplastin Ratio 1.3; Partial Thromboplastin Time 34.4 Seconds (21.0-31.0); Prothrombin Time 10.4 Seconds (9.0-12.0)
[2021-01-13 08:19] LABS: Hematocrit (blood only) 27.3 % (37-47)
[2021-01-13 08:41] LABS: BUN Creatinine Ratio 16.6 (10-20); Blood Urea Nitrogen 6 mg/dl (7-18); Calcium 8.5 mg/dl (8.5-10.1); Carbon Dioxide 19 mmol/L (21-32); Chloride 86 mmol/L (98-107); Creatinine Clr Calc Pharmacy 234.2 ml/min; Est GFR (African American) > 150.0 ml/min; Est GFR (Non-African American) > 150.0 ml/min; Glucose 88 mg/dl (70-99); Potassium 3.6 mmol/L (3.5-5.1); Sodium 117 mmol/L (136-145)
--- NOTE | 2021-01-13 10:43 | Medical Student Progress Note ---
Date of Service January 13, 2021 Assessment & Plan (1) Hypotension: Ms. Eng is a 25-year-old female with a past medical history of von Willebrand's disease, tobacco use, and gallstone pancreatitis who is s/p C- section at 39 and 0/7 weeks for indication of intolerance of labor and oligohydramnios on 12/23 and lap cholecystectomy on 01/10 with medicine consult for post-operative hypotension. Now DDAVP x 3 with symptomatic secondary hyponatremia. (1) Hyponatremia: - Patient became acutely symptomatic overnight with confusion, nausea, and possible seizure-like activity. - 100 mL bolus of 3% saline given overnight. - Monitoring Na q4h - 115 at 1200. Increased to 118 after giving 100 mL bolus of 3% saline. - Neuro checks q2h. (2) Acute postoperative hypotension: - Blood pressure stable since code purple on 01/10. - Patient received one unit pRBCs on 01/11. Hgb 10 today. - CT on 01/11 did show blood products in the pelvis. - Some concern for continued bleeding from surgical site but more likely due to falling levels of vWF in post- setting. - Holding fluids in the setting of hyponatremia. - Monitor Vitals q4h. (3) S/p Cholecystectomy for Indication of Gallstone Pancreatitis - POD #1: - See above - Routine postop care per surgery (4) Von Willebrand's disease: - History of diagnosed at 3 years old, and had 4 prior treatments for elective surgeries. - Hematology oncology consulted; appreciate recommendations. - Patient given DDAVP pre-op. Confirmed with pharmacy. - Given pRBCs and additional doses of DDAVP on 01/11 and 01/12, for a total of 3. - Consulted with Dr. Hairston, iron given on 01/12. Iron studies normal with elevated Fe in the setting of blood transfusion. (4) Tobacco use: Provide counseling Dispo: PACU FEN: Regular Diet Code: Full Code VTE: Ambulation (2) state: (3) Anxiety and depression: (4) Gallstone pancreatitis: Admission and Anticipated Discharge Date Admission Date: January 10, 2021 Supervising Attestation I personally examined the patient and verified all pollock points of history and exam, discussed case, and agree with decision making with Reinier Torrez. Feeling much better overall. Still a little bit slow to answer and does not quite seem like herself, but generally notes she is feeling much better than overnight. No significant abdominal pain either. Case discussed with nephrology and hematology/oncologyinput greatly appreciated. Vitals noted, in general she is awake and alert pleasant but laying flat with a moist towel on her head and appearing mildly diaphoretic. HEENT normocephalic atraumatic mucous membranes are moist. Abdomen soft nondistended nontender no guarding no rebound no rigidityalmost essentially normal exam for the first time this hospital stay Acute blood loss anemiarelated to von Willebrand's disease in the context of being about 2 weeks having had a cholecystectomy. Unfortunately she would likely be at a low point of VWF, which might explain the ongoing oozing. At this point however, with her abdominal exam being benign and her hemoglobin now looking much more stable, I suspect the bleeding has stopped. Continue to follow closely of course. Acute hyponatremiashe required several doses of DDAVP due to her acute blood loss anemia/oozing into her abdomen/hemoperitoneumunfortunately this can lead to fluid retention mediated hyponatremiaand did. Fortunately she appears to be stabilizing/starting to improvethe main point of concern moving forward will be to continue to follow her closely, given that when the DDAVP wears off, she might start to have a precipitous rise in her sodiumin which case we may need to blunt it somewhat with something such as D5W. That said, at the bedside she continues to look better and better at each visit today. Otherwise as above Subjective Discussion limited by patient's mental status. She does endorse nausea, lightheadedness, dizziness, headache, and abdominal pain. She is voiding well. Anorexic, no PO intake this morning. Upon final check at 1500, patient endorsed decreased confusion and improved symptomatology. She states that she does not have dizziness/lightheadedness or headache. She continues with anorexia at this time but with reduced abdominal pain and nausea. Voiding with Murray in place. Review of Systems Review of Systems: All systems reviewed & are unremarkable except as noted in Subjective Physical Exam Constitutional: WD/WN, vitals as above Respiratory: normal respiratory effort; no respiratory distress and no labored breathing Gastrointestinal (Abdomen): Inspection/Auscultation: abdomen normal to inspection; abdomen not distended Musculoskeletal: no cyanosis or clubbing, extremities motor strength 5/5 Skin: no rashes, warm and dry Neurologic: moves all extremities and awake Psychiatric: Orientation: alert and oriented x 3 Results & Data ([facility]) Vital Signs (Past 12 Hours) Vital Signs Temp Pulse Resp BP Pulse Ox 01/13/21 07:15 36.6 C 69 19 113/79 96 01/13/21 00:29 36.9 C 57 L 18 111/73 96 Laboratory Results 01/13/21 01/13/21 01/13/21 07:33 07:33 07:33 Hgb 10.0 L Hct 27.3 L Reticulocyte % (Auto) Reticulocyte # PT 10.4 INR 1.0 APTT 34.4 H PTT Ratio 1.3 Fibrinogen 357 Fibrin Degrad Products 10-40 H Sodium Potassium Chloride Carbon Dioxide Anion Gap BUN Creatinine Est Cr Clr Drug Dosing Est GFR ( Amer) Est GFR (Non-Af Amer) BUN/Creatinine Ratio Glucose Osmolality Calcium Iron TIBC Transferrin Ferritin 01/13/21 01/13/21 01/13/21 07:33 07:33 05:27 Hgb Hct Reticulocyte % (Auto) Reticulocyte # PT INR APTT PTT Ratio Fibrinogen Fibrin Degrad Products Sodium 117 L* Potassium 3.6 Chloride 86 L Carbon Dioxide 19 L Anion Gap 11.0 BUN 6 L Creatinine 0.34 L Est Cr Clr Drug Dosing 234.2 Est GFR ( Amer) > 150.0 Est GFR (Non-Af Amer) > 150.0 BUN/Creatinine Ratio 16.6 Glucose 88 Osmolality 238 L* 233 L* Calcium 8.5 Iron TIBC Transferrin Ferritin 01/13/21 01/12/21 01/12/21 04:09 23:18 18:01 Hgb 9.2 L Hct Reticulocyte % (Auto) Reticulocyte # PT INR APTT PTT Ratio Fibrinogen Fibrin Degrad Products Sodium 118 L* 122 L D Potassium 3.6 3.2 L D Chloride 86 L 87 L Carbon Dioxide 22 20 L Anion Gap 10.0 15.0 H BUN 5 L 5 L D Creatinine 0.27 L 0.42 L Est Cr Clr Drug Dosing 294.9 189.6 Est GFR ( Amer) > 150.0 > 150.0 Est GFR (Non-Af Amer) > 150.0 142.5 BUN/Creatinine Ratio 19.6 12.9 Glucose 85 92 Osmolality Calcium 7.5 L 8.2 L Iron TIBC Transferrin Ferritin 01/12/21 01/12/21 12:53 12:53 Hgb 8.9 L Hct Reticulocyte % (Auto) 1.4 Reticulocyte # 0.04 PT INR APTT PTT Ratio Fibrinogen Fibrin Degrad Products Sodium Potassium Chloride Carbon Dioxide Anion Gap BUN Creatinine Est Cr Clr Drug Dosing Est GFR ( Amer) Est GFR (Non-Af Amer) BUN/Creatinine Ratio Glucose Osmolality Calcium Iron 562 H TIBC 417 Transferrin 208 Ferritin 56.1 Medications Administered Current Inpatient Medications Acetaminophen (Acetaminophen 500 Mg Tab) 1,000 mg PO Q8H ALFONZO Stop: 02/10/21 19:44 Last Admin: 01/13/21 04:43 Dose: 1,000 mg Documented by: Morphine Sulfate (Morphine Sulfate 4 Mg/Ml 1 Ml Carp\Vial) 4 mg IV Q4 PRN PRN Reason: Severe Pain Stop: 01/25/21 17:03 Ondansetron HCl (Ondansetron Inj 2 Mg/Ml 2 Ml Vial) 4 mg IV Q4H PRN PRN Reason: Nausea And Vomiting Stop: 02/09/21 05:51 Last Admin: 01/12/21 22:07 Dose: 4 mg Documented by: Oxycodone/Acetaminophen (Oxycodone/Acetaminophen 5mg/325mg Tab) 1 tab PO Q4H PRN PRN Reason: Pain Stop: 01/24/21 12:48 Oxycodone/Acetaminophen (Oxycodone/Acetaminophen 5mg/325mg Tab) 2 tab PO Q4H PRN PRN Reason: Pain Stop: 01/24/21 12:48 Last Admin: 01/10/21 21:32 Dose: 2 tab Documented by:
--- NOTE | 2021-01-13 11:03 | Nephrology Consultation ---
Date of Consultation January 13, 2021 Assessment & Plan (1) Hyponatremia: * Severe acute hyponatremia. dDAVP has been stopped. 100 cc 3% NaCl IV x1 was administered. Preliminary repeat Na reported by phone from lab was 121. Actual reported result at 7:30 this morning is 117 mmol/dL. Patient has been reassessed at 11am. She is A&O x3 without c/o weakness or QUINONEZ. Stat PRP has been ordered. Since patient is neurologically intact and serum sodium is stable will hold 3% NaCl at this time. Expect that dDAVP effect will wear off (last dose 01/12 at 1400 hrs, T1/2 2-4 hr, duration 6-14 hr) and patient will auto diurese. Goal is ~ 6 mEq correction/24 hours. History of Present Illness Reason for Consultation: Severe acute hyponatremia Requesting Physician: Dr. Hines Attending Physician: Channing Flowers DO History of Present Illness Mrs. Eng is a 25 year old white female who was seen this morning in the PCU as a routine consultation for severe acute hyponatremia. The medical record was reviewed and the patient was interviewed & examined. Primary service was contacted by telephone and plan of care was reviewed. Mrs. Eng has von Wilebrand's disease. She was hospitalized in December and delivered her first child by 12/23/20. She was discharged home 12/26/20 in stable medical condition. On 01/10/21 Mrs. Eng presented to the ED for evaluation of abdominal pain. Evaluation revealed gallstone pancreatitis. She underwent laparoscopic cholecystectomy 01/10/21. 20 mcg IV dDAVP was provided prior to surgery. Hgb dropped from 13 to 8.1. Additional doses were then administered 01/11 and 01/12. This morning patient was noted to be poorly responsive. 4am labs revealed serum Na 118 mmol/L. 100 cc 3% NaCl was administered by the primary service. I assessed Mrs. Eng at 7:30 am. She was oriented to self, place and month. She denied QUINONEZ and was able to follow commands appropriately. Allergies Allergy/AdvReac Type Severity Reaction Status Date / Time codeine AdvReac Intermediate Nausea Verified 01/10/21 01:28 metoclopramide [From Reglan] AdvReac Anxiety Verified 01/10/21 01:28 Home Medications Medication Instructions Recorded Confirmed Type acetaminophen [Tylenol] 650 mg PO Q6H PRN 05/14/19 01/10/21 History prenat.vits,maikel,[id number] 1 tab PO DAILY 05/15/20 01/10/21 History famotidine 20 mg PO BID PRN 11/25/20 01/10/21 History oxycodone-acetaminophen [Percocet] 1 - 2 tab PO Q4H PRN #12 tab 01/10/21 Rx Patient History Medical History Anxiety no meds Depression no meds Gallstone pancreatitis 11/24/20 - plan to have gallbladder removed in January GERD (gastroesophageal reflux disease) History of hysterosalpingogram Interstitial cystitis Varicella vaccination Von Willebrand disease Surgical History S/P cystoscopy S/P nasal septoplasty S/P wisdom tooth extraction Family History Grandfather (Paternal) Heart disease Stroke Hypertension Grandmother (Paternal) Heart disease Stroke Hypertension Denies family history of Ovarian cancer Breast cancer Colorectal cancer Social History Smoking Status: Current every day smoker Tobacco Type: Cigarettes Years Smoked: 10; Cigarettes Per Day: 10; Second Hand Exposure: No; Hx Alcohol Use: No Hx Substance Use: No Preferred Language: Chinese Communication Ability: Effective Captain Airline Pilot Required: No Beliefs That Will Affect Care: None marital status: Life Partner marital status details: raul Blanton (24) [phone] Current Living Situation: Spouse Current Living Situation Comment: Major, 2 week old daughter, dog current occupational status: employed current occupation: contract tracer How many Children do You have: 2 Feels Safe at Home: Yes Assistive Devices: None Review of Systems Constitutional: no fever Eyes: no problem reported Ear, Nose, Mouth, Throat: no problem reported Respiratory: no dyspnea Cardiovascular: no chest pain and no edema Gastrointestinal: no abdominal pain, no nausea and no diarrhea/loose stools Genitourinary: no dysuria and no hematuria Musculoskeletal: no back pain Neurologic: no confusion Physical Exam Constitutional: not in distress Eyes: PERRL, conjunctivae normal, anicteric sclerae ENMT: external ear and nose normal, oropharynx normal Neck: trachea midline, no thyromegaly Respiratory: normal respiratory effort, lungs clear to auscultation Cardiovascular: RRR, no murmur, no edema Gastrointestinal (Abdomen): normal bowel sounds, soft, nontender, no hepatosplenomegaly Musculoskeletal: Extremities: no cyanosis Skin: no rashes, warm and dry Neurologic: awake; not confused Results & Data ([facility]) Vital Signs (Past 12 Hours) Vital Signs Temp Pulse Resp BP Pulse Ox 01/13/21 07:15 36.6 C 69 19 113/79 96 01/13/21 00:29 36.9 C 57 L 18 111/73 96 Laboratory Tests 01/10/21 01/11/21 01/11/21 01:00 06:41 06:41 WBC Hgb 13.1 8.5 L Hct Plt Count Sodium 137 Potassium Chloride Carbon Dioxide BUN Creatinine Glucose Osmolality Calcium 01/12/21 01/12/21 01/12/21 06:57 18:01 23:18 WBC 7.25 Hgb 8.1 L 9.2 L Hct 24.5 L Plt Count 307 Sodium 122 L D Potassium Chloride Carbon Dioxide BUN Creatinine Glucose Osmolality Calcium 01/13/21 01/13/21 04:09 05:27 WBC Hgb Hct Plt Count Sodium 118 L* Potassium 3.6 Chloride 86 L Carbon Dioxide 22 BUN 5 L Creatinine 0.27 L Glucose 85 Osmolality 233 L* Calcium 7.5 L PG Care Time/CCT Total # of Minutes Spent Total Time Spent with Patient: Total time spent is greater than 50% in coordination of care (as documented) at patient's floor/unit and/or counseling patient: Coding Level of Care Code 32978 Inpt Consult Level 5 Diagnoses Hyponatremia E87.1
[2021-01-13 11:42] LABS: BUN Creatinine Ratio 16.6 (10-20); Blood Urea Nitrogen 5 mg/dl (7-18); Calcium 8.6 mg/dl (8.5-10.1); Carbon Dioxide 18 mmol/L (21-32); Chloride 86 mmol/L (98-107); Creatinine Clr Calc Pharmacy 248.8 ml/min; Est GFR (African American) > 150.0 ml/min; Est GFR (Non-African American) > 150.0 ml/min; Glucose 87 mg/dl (70-99); Potassium 3.9 mmol/L (3.5-5.1); Sodium 115 mmol/L (136-145)
[2021-01-13] MEDS ORDERED: SODIUM CHLORIDE 3 % 50 ML IV ONE (12:10)
--- NOTE | 2021-01-13 16:05 | Billing Data ---
Date of Service January 13, 2021 Coding Level of Care Code 78822 Subseq Hosp Care Lvl 3
[2021-01-13 16:27] LABS: BUN Creatinine Ratio 10.3 (10-20); Blood Urea Nitrogen 5 mg/dl (7-18); Calcium 9.2 mg/dl (8.5-10.1); Carbon Dioxide 22 mmol/L (21-32); Chloride 91 mmol/L (98-107); Creatinine Clr Calc Pharmacy 150.2 ml/min; Est GFR (African American) > 150.0 ml/min; Glucose 85 mg/dl (70-99); Potassium 3.7 mmol/L (3.5-5.1); Sodium 121 mmol/L (136-145)
[2021-01-13 20:40] LABS: BUN Creatinine Ratio 15.4 (10-20); Blood Urea Nitrogen 8 mg/dl (7-18); Calcium 8.8 mg/dl (8.5-10.1); Carbon Dioxide 21 mmol/L (21-32); Chloride 96 mmol/L (98-107); Creatinine Clr Calc Pharmacy 159.2 ml/min; Est GFR (African American) > 150.0 ml/min; Est GFR (Non-African American) 134.5 ml/min; Glucose 89 mg/dl (70-99); Potassium 3.5 mmol/L (3.5-5.1); Sodium 126 mmol/L (136-145)
[2021-01-13] MEDS: DEXTROSE 5% 1,000 ML IV SCH (21:03)
[2021-01-13 22:48] LABS: BUN Creatinine Ratio 14.3 (10-20); Calcium 8.9 mg/dl (8.5-10.1); Creatinine Clr Calc Pharmacy 132.7 ml/min; Est GFR (African American) 146.8 ml/min; Est GFR (Non-African American) 126.7 ml/min; Potassium 3.3 mmol/L (3.5-5.1)
--- NOTE | 2021-01-14 00:47 | Communication Note ---
Date of Service: January 14, 2021 Overnight patient started to auto diurese, with continued frequent monitoring of BMPs noted that she had started to auto diurese initial sodium at 2000 demo nstrated NA of 129, this was noted after she had dumped out international 1200 mL of urine over potentially 3 hours. Discussed with nursing staff need for hourly urine output measurements as initiation of D5W necessitates continued monitoring for titration of appropriate rate. We will continue to monitor BMPs every 2 hours overnight. Will adjust D5 W infusion rate to match urine output, with the aim of maintaining sodium no greater than 126. Subsequent examinations and neuro checks did not demonstrate any acute neurologic complaints. Sodium maintained overnight at 126. Would avoid utili zation of 3% at this time given potentiation of auto diuresis, if over correcting (greater than 6 mEq per 24 hours) would consider maintenance on D5W over consideration of utilization of DDAVP as this seems to have been what initiated our acute hyponatremia. Resident Activity Tracking Resident Involvement: Resident Care Provided Care Provided: Adult Hospital Medicine
[2021-01-14 01:00] LABS: BUN Creatinine Ratio 15.9 (10-20); Blood Urea Nitrogen 8 mg/dl (7-18); Calcium 8.2 mg/dl (8.5-10.1); Carbon Dioxide 24 mmol/L (21-32); Chloride 97 mmol/L (98-107); Creatinine Clr Calc Pharmacy 162.5 ml/min; Est GFR (African American) > 150.0 ml/min; Est GFR (Non-African American) 135.4 ml/min; Glucose 108 mg/dl (70-99); Potassium 3.4 mmol/L (3.5-5.1); Sodium 129 mmol/L (136-145)
[2021-01-14] MEDS: DEXTROSE 5% 1,000 ML IV SCH ×3 (01:19→06:33)
[2021-01-14 02:51] LABS: BUN Creatinine Ratio 18.9 (10-20); Blood Urea Nitrogen 8 mg/dl (7-18); Carbon Dioxide 23 mmol/L (21-32); Chloride 96 mmol/L (98-107); Creatinine Clr Calc Pharmacy 180.9 ml/min; Est GFR (African American) > 150.0 ml/min; Est GFR (Non-African American) 140.3 ml/min; Glucose 131 mg/dl (70-99); Potassium 3.2 mmol/L (3.5-5.1); Sodium 126 mmol/L (136-145)
[2021-01-14] MEDS: CALCIUM CARBONATE 500 MG CHEWABLE TAB PO PRN ×2 (03:17→12:04)
[2021-01-14] MEDS: ACETAMINOPHEN 500 MG TAB PO SCH ×2 (03:56→12:04)
[2021-01-14 04:26] LABS: Hematocrit (blood only) 30.5 % (37-47); Hemoglobin 10.6 g/dL (12.0-16.0); Mean Corpuscular Hemoglobin 28.8 pg (25-34); Mean Corpuscular Hgb Conc 34.8 g/dL (32-36); Mean Corpuscular Volume 82.9 fL (80-100); Platelet Count 475 K/uL (130-400); RDW Coefficient of Variation 12.4 % (11.5-14.5); RDW Standard Deviation 37.6 fL (36.4-46.3); Red Blood Count 3.68 M/uL (4.2-5.4); White Blood Count 8.66 K/uL (4.8-10.8)
[2021-01-14 04:27] LABS: ANC (manual) 6.11 K/uL (1.4-6.5); Eosinophils # (manual) 0.15 K/uL (0-0.5); Eosinophils % (manual) 1.7 %; Lymphocytes % (manual) 24.3 %; Monocytes # (manual) 0.15 K/uL (0.11-0.59); Monocytes % (manual) 1.7 %; Myelocytes # (manual) 0.15 K/uL (0-0); Myelocytes % (manual) 1.7 %; Neutrophils # (manual) 6.11 K/uL (1.4-6.5); Neutrophils % (manual) 70.6 %; RBC Morphology Unremarkable
[2021-01-14 04:32] LABS: BUN Creatinine Ratio 17.4 (10-20); Blood Urea Nitrogen 7 mg/dl (7-18); Calcium 7.9 mg/dl (8.5-10.1); Carbon Dioxide 23 mmol/L (21-32); Chloride 95 mmol/L (98-107); Creatinine Clr Calc Pharmacy 189.6 ml/min; Est GFR (African American) > 150.0 ml/min; Est GFR (Non-African American) 142.5 ml/min; Glucose 124 mg/dl (70-99); Potassium 3.1 mmol/L (3.5-5.1); Sodium 126 mmol/L (136-145)
[2021-01-14 07:01] LABS: BUN Creatinine Ratio 15.7 (10-20); Blood Urea Nitrogen 7 mg/dl (7-18); Calcium 8.6 mg/dl (8.5-10.1); Carbon Dioxide 22 mmol/L (21-32); Chloride 95 mmol/L (98-107); Creatinine Clr Calc Pharmacy 169.4 ml/min; Est GFR (African American) > 150.0 ml/min; Est GFR (Non-African American) 137.3 ml/min; Glucose 124 mg/dl (70-99); Potassium 3.4 mmol/L (3.5-5.1); Sodium 125 mmol/L (136-145)
[2021-01-14 08:50] LABS: BUN Creatinine Ratio 14.8 (10-20); Blood Urea Nitrogen 7 mg/dl (7-18); Calcium 8.8 mg/dl (8.5-10.1); Carbon Dioxide 21 mmol/L (21-32); Chloride 95 mmol/L (98-107); Creatinine Clr Calc Pharmacy 165.9 ml/min; Est GFR (African American) > 150.0 ml/min; Est GFR (Non-African American) 136.3 ml/min; Glucose 116 mg/dl (70-99); Potassium 3.4 mmol/L (3.5-5.1); Sodium 124 mmol/L (136-145)
--- NOTE | 2021-01-14 09:36 | Nephrology Progress Note ---
Date of Service January 14, 2021 Assessment & Plan (1) Hyponatremia: * Serum sodium 125 mmol/L this am. Patient is diuresing on her own. She has an intact thirst mechanism and is able to drink free water. Will stop IVF, monitor UO and serum sodium. Patient has now corrected to a relatively s afe range. * Will provide KCl supplement this am Admission and Anticipated Discharge Date Admission Date: January 10, 2021 Subjective Mrs. Eng was seen & examined in the PCU this morning. She was A&O x3, following commands appropriately and denied QUINONEZ. Murray catheter remains in place draining clear, yellow urine Review of Systems Constitutional: no fever Eyes: no problem reported Ear, Nose, Mouth, Throat: no problem reported Respiratory: no dyspnea Cardiovascular: no chest pain, no palpitations and no edema Gastrointestinal: no abdominal pain, no nausea and no diarrhea/loose stools Neurologic: no confusion Physical Exam Constitutional: not in distress Eyes: PERRL, conjunctivae normal, anicteric sclerae ENMT: external ear and nose normal, oropharynx normal Neck: trachea midline, no thyromegaly Respiratory: normal respiratory effort, lungs clear to auscultation Cardiovascular: RRR, no murmur, no edema Gastrointestinal (Abdomen): normal bowel sounds, soft, nontender, no hepatosplenomegaly Musculoskeletal: Extremities: no cyanosis Skin: no rashes, warm and dry Neurologic: awake; not confused Results & Data ([facility]) Vital Signs (Past 12 Hours) Vital Signs Temp Pulse Resp BP BP Pulse Ox 01/14/21 07:42 36.8 C 68 16 111/72 98 01/14/21 03:52 36.9 C 72 18 109/64 01/13/21 23:44 37.0 C 96 H 17 126/67 97 Laboratory Tests 01/13/21 01/14/21 01/14/21 11:35 03:47 06:07 WBC 8.66 Hgb 10.6 L Hct 30.5 L Plt Count 475 H D Sodium 125 L Potassium 3.4 L Chloride 95 L Carbon Dioxide 22 BUN 7 Creatinine 0.47 L Urine Osmolality 205 L PG Care Time/CCT Total # of Minutes Spent Total Time Spent with Patient: Total time spent is greater than 50% in coordination of care (as documented) at patient's floor/unit and/or counseling patient: Coding Level of Care Code 48782 Subseq Hosp Care Lvl 3 Diagnoses Hyponatremia E87.1
--- NOTE | 2021-01-14 09:43 | Progress Notes ---
DATE: 01/14/2021 DIAGNOSES: 1. Status post cholecystectomy, postoperative day #3. 2. Type 1 von Willebrand's disease. 3. Recent section. 4. Anemia due to a hemoperitoneum. 5. Hyponatremia. 6. Hypocalcemia. SUBJECTIVE: The patient was seen and examined at bedside. Her mental status has improved dramatically. The patient feels well and is anxious to be discharged. Resident advised me of over correction of sodium and thus started D5 water and discontinued 3% saline. Her hemoglobin appears to have stabilized. Her belly pain is improved. The patient is ambulating ad rocco. Nursing reports no overnight difficulties otherwise. OBJECTIVE: GENERAL: A very pleasant 25-year-old female. Awake, alert and appropriate, in no acute distress. VITAL SIGNS: Temperature 36.9, pulse 72, respiratory rate 18, blood pressure 109/64. SKIN: Without rash or lesion. HEENT: Buccal mucosa without erythema or ulceration. NECK: Supple. HEART: Regular rate and rhythm. LUNGS: Clear to auscultation bilaterally. ABDOMEN: Soft, nontender, nondistended. EXTREMITIES: No clubbing, cyanosis or edema. NEUROLOGIC: Focally intact. LABORATORY DATA: WBC count 8660, hemoglobin 10.6, platelet count 475,000. Sodium 125, potassium 3.4, chloride 95, carbon dioxide 22, creatinine 0.47, BUN 7. Osmolality 258. Urine osmolality 205. IMPRESSION: 1. Hyponatremia, attributable to DDAVP. 2. Type 1 von Willebrand's disease. 3. Hemoperitoneum. 4. Status post cholecystectomy. 5. Blood loss anemia. PLAN: I am very pleased with patient's presentation this morning. Much better mentally and physically. She admits to feeling better. The sodium level has begun to correct perhaps a little over corrected and thus the resident appropriately discontinued 3% saline in favor of D5 water. If the hospitalist agree would have the patient discharged, perhaps later on today or latest tomorrow morning with appropriate laboratory and clinical followup thereafter. I expect her sodium at this point to correct spontaneously. Definitely would need to see the patient within a week or 2 in the office, repeat her counts make sure she reestablishes the hemoglobin baseline. I have nothing further to add and will discuss further with the hospitalist service.
[2021-01-14] MEDS ORDERED: POTASSIUM CHLORIDE CRTAB 20 MEQ TABCR PO ONE (09:46)
--- NOTE | 2021-01-14 10:08 | Medical Student Progress Note ---
Date of Service January 14, 2021 Assessment & Plan (1) Hypotension: Ms. Eng is a 25-year-old female with a past medical history of von Willebrand's disease, tobacco use, and gallstone pancreatitis who is s/p C- section at 39 and 0/7 weeks for indication of intolerance of labor and oligohydramnios on 12/23 and lap cholecystectomy on 01/10 with medicine consult for post-operative hypotension. Now DDAVP x 3 with improving hyponatremia. (1) Hyponatremia: - Symptoms have resolved. Baseline mental status. - s/p 100 mL bolus of 3% saline x2. Concern for overcorrection, patient received D5W overnight. - Na 124 today. - Patient is rapidly auto-diuresing with output of 200-275 mL/hour. - Discontinue IVF and encourage oral intake. (2) Acute postoperative hypotension: - Blood pressure stable since code purple on 01/10. - Patient received one unit pRBCs on 01/11. Hgb 10.6 today. - CT on 01/11 did show blood products in the pelvis. - Some concern for continued bleeding from surgical site but more likely due to falling levels of vWF in post- setting. Likely resolved. - Monitor Vitals q4h. (3) S/p Cholecystectomy for Indication of Gallstone Pancreatitis - POD #4: - See above - Routine postop care per surgery (4) Von Willebrand's disease: - History of diagnosed at 3 years old, and had 4 prior treatments for elective surgeries. - Hematology oncology consulted; appreciate recommendations. - Patient given DDAVP pre-op. Confirmed with pharmacy. - Given pRBCs and additional doses of DDAVP on 01/11 and 01/12, for a total of 3. - Consulted with Dr. Hairston, iron given on 01/12. Iron studies normal with elevated Fe in the setting of blood transfusion. - Will follow-up with Dr. Hairston in the outpatient setting. (4) Tobacco use: Provide counseling (5) Hypokalemia: - Repleting with KCl. - Recheck this afternoon. Dispo: PACU FEN: Regular Diet Code: Full Code VTE: Ambulation (2) state: (3) Anxiety and depression: (4) Gallstone pancreatitis: (5) Von Willebrand disease: Admission and Anticipated Discharge Date Admission Date: January 10, 2021 Subjective Ms. Eng is doing well today. She states that she is back to baseline in terms of her mental status. She had a bowel movement yesterday and is tolerating PO well. She is voiding with Murray in place. She does not endorse headache, lightheadedness, dizziness, nausea, vomiting, or abdominal pain. Review of Systems Review of Systems: All systems reviewed & are unremarkable except as noted in Subjective Physical Exam Physical Exam: Patient is resting comfortably on exam. No acute distress. Constitutional: WD/WN, vitals as above Respiratory: normal respiratory effort and + cough; no respiratory distress Musculoskeletal: no cyanosis or clubbing, extremities motor strength 5/5 Skin: no rashes, warm and dry Psychiatric: A+Ox3, euthymic affect Results & Data ([facility]) Vital Signs (Past 12 Hours) Vital Signs Temp Pulse Resp BP BP Pulse Ox 01/14/21 07:42 36.8 C 68 16 111/72 98 01/14/21 03:52 36.9 C 72 18 109/64 01/13/21 23:44 37.0 C 96 H 17 126/67 97 Laboratory Results 01/14/21 01/14/21 01/14/21 08:05 06:07 06:07 WBC RBC Hgb Hct MCV MCH MCHC RDW Std Deviation RDW Coeff of [employer] Plt Count MPV Neutrophils % (Manual) Lymphocytes % (Manual) Monocytes % (Manual) Eosinophils % (Manual) Myelocytes % (Man) Neutrophils # (Manual) Total Absolute Neuts Lymphocytes # (Manual) Total Abs Lymphocytes Monocytes # (Manual) Eosinophils # (Manual) Myelocytes # (Manual) RBC Morphology Sodium 124 L 125 L Potassium 3.4 L 3.4 L Chloride 95 L 95 L Carbon Dioxide 21 22 Anion Gap 8.0 8.0 BUN 7 7 Creatinine 0.48 L 0.47 L Est Cr Clr Drug Dosing 165.9 169.4 Est GFR ( Amer) > 150.0 > 150.0 Est GFR (Non-Af Amer) 136.3 137.3 BUN/Creatinine Ratio 14.8 15.7 Glucose 116 H 124 H Osmolality 258 L Calcium 8.8 8.6 Urine Osmolality Ur Random Sodium 01/14/21 01/14/21 01/14/21 03:47 03:47 02:24 WBC 8.66 RBC 3.68 L Hgb 10.6 L Hct 30.5 L MCV 82.9 MCH 28.8 MCHC 34.8 RDW Std Deviation 37.6 RDW Coeff of [employer] 12.4 Plt Count 475 H D MPV 9.0 Neutrophils % (Manual) 70.6 Lymphocytes % (Manual) 24.3 Monocytes % (Manual) 1.7 Eosinophils % (Manual) 1.7 Myelocytes % (Man) 1.7 Neutrophils # (Manual) 6.11 Total Absolute Neuts 6.11 Lymphocytes # (Manual) 2.10 Total Abs Lymphocytes 2.10 Monocytes # (Manual) 0.15 Eosinophils # (Manual) 0.15 Myelocytes # (Manual) 0.15 H RBC Morphology Unremarkable Sodium 126 L 126 L Potassium 3.1 L 3.2 L Chloride 95 L 96 L Carbon Dioxide 23 23 Anion Gap 8.0 7.0 BUN 7 8 Creatinine 0.42 L 0.44 L Est Cr Clr Drug Dosing 189.6 180.9 Est GFR ( Amer) > 150.0 > 150.0 Est GFR (Non-Af Amer) 142.5 140.3 BUN/Creatinine Ratio 17.4 18.9 Glucose 124 H 131 H Osmolality Calcium 7.9 L 8.0 L Urine Osmolality Ur Random Sodium 01/14/21 01/14/21 01/13/21 02:24 00:20 22:10 WBC RBC Hgb Hct MCV MCH MCHC RDW Std Deviation RDW Coeff of [employer] Plt Count MPV Neutrophils % (Manual) Lymphocytes % (Manual) Monocytes % (Manual) Eosinophils % (Manual) Myelocytes % (Man) Neutrophils # (Manual) Total Absolute Neuts Lymphocytes # (Manual) Total Abs Lymphocytes Monocytes # (Manual) Eosinophils # (Manual) Myelocytes # (Manual) RBC Morphology Sodium 129 L 126 L Potassium 3.4 L 3.3 L Chloride 97 L 94 L Carbon Dioxide 24 23 Anion Gap 8.0 8.0 BUN 8 9 Creatinine 0.49 L 0.60 Est Cr Clr Drug Dosing 162.5 132.7 Est GFR ( Amer) > 150.0 146.8 Est GFR (Non-Af Amer) 135.4 126.7 BUN/Creatinine Ratio 15.9 14.3 Glucose 108 H 122 H Osmolality 257 L Calcium 8.2 L 8.9 Urine Osmolality Ur Random Sodium 01/13/21 01/13/21 01/13/21 22:10 19:47 19:47 WBC RBC Hgb Hct MCV MCH MCHC RDW Std Deviation RDW Coeff of [employer] Plt Count MPV Neutrophils % (Manual) Lymphocytes % (Manual) Monocytes % (Manual) Eosinophils % (Manual) Myelocytes % (Man) Neutrophils # (Manual) Total Absolute Neuts Lymphocytes # (Manual) Total Abs Lymphocytes Monocytes # (Manual) Eosinophils # (Manual) Myelocytes # (Manual) RBC Morphology Sodium 126 L Potassium 3.5 Chloride 96 L Carbon Dioxide 21 Anion Gap 9.0 BUN 8 Creatinine 0.50 L Est Cr Clr Drug Dosing 159.2 Est GFR ( Amer) > 150.0 Est GFR (Non-Af Amer) 134.5 BUN/Creatinine Ratio 15.4 Glucose 89 Osmolality 263 L 257 L Calcium 8.8 Urine Osmolality Ur Random Sodium 01/13/21 01/13/21 01/13/21 15:51 15:51 14:35 WBC RBC Hgb Hct MCV MCH MCHC RDW Std Deviation RDW Coeff of [employer] Plt Count MPV Neutrophils % (Manual) Lymphocytes % (Manual) Monocytes % (Manual) Eosinophils % (Manual) Myelocytes % (Man) Neutrophils # (Manual) Total Absolute Neuts Lymphocytes # (Manual) Total Abs Lymphocytes Monocytes # (Manual) Eosinophils # (Manual) Myelocytes # (Manual) RBC Morphology Sodium 121 L 121 L Potassium 3.7 Chloride 91 L Carbon Dioxide 22 Anion Gap 8.0 BUN 5 L Creatinine 0.53 L Est Cr Clr Drug Dosing 150.2 Est GFR ( Amer) > 150.0 Est GFR (Non-Af Amer) 132.0 BUN/Creatinine Ratio 10.3 Glucose 85 Osmolality 254 L Calcium 9.2 Urine Osmolality Ur Random Sodium 01/13/21 01/13/21 01/13/21 12:58 11:35 11:35 WBC RBC Hgb Hct MCV MCH MCHC RDW Std Deviation RDW Coeff of [employer] Plt Count MPV Neutrophils % (Manual) Lymphocytes % (Manual) Monocytes % (Manual) Eosinophils % (Manual) Myelocytes % (Man) Neutrophils # (Manual) Total Absolute Neuts Lymphocytes # (Manual) Total Abs Lymphocytes Monocytes # (Manual) Eosinophils # (Manual) Myelocytes # (Manual) RBC Morphology Sodium 118 L* Potassium Chloride Carbon Dioxide Anion Gap BUN Creatinine Est Cr Clr Drug Dosing Est GFR ( Amer) Est GFR (Non-Af Amer) BUN/Creatinine Ratio Glucose Osmolality Calcium Urine Osmolality 205 L Ur Random Sodium 46 01/13/21 01/13/21 10:51 10:51 WBC RBC Hgb Hct MCV MCH MCHC RDW Std Deviation RDW Coeff of [employer] Plt Count MPV Neutrophils % (Manual) Lymphocytes % (Manual) Monocytes % (Manual) Eosinophils % (Manual) Myelocytes % (Man) Neutrophils # (Manual) Total Absolute Neuts Lymphocytes # (Manual) Total Abs Lymphocytes Monocytes # (Manual) Eosinophils # (Manual) Myelocytes # (Manual) RBC Morphology Sodium 115 L* Potassium 3.9 Chloride 86 L Carbon Dioxide 18 L Anion Gap 12.0 H BUN 5 L Creatinine 0.32 L Est Cr Clr Drug Dosing 248.8 Est GFR ( Amer) > 150.0 Est GFR (Non-Af Amer) > 150.0 BUN/Creatinine Ratio 16.6 Glucose 87 Osmolality 234 L* Calcium 8.6 Urine Osmolality Ur Random Sodium Medications Administered Current Inpatient Medications Acetaminophen (Acetaminophen 500 Mg Tab) 1,000 mg PO Q8H ALFONZO Stop: 02/10/21 19:44 Last Admin: 01/14/21 03:56 Dose: 1,000 mg Documented by: Calcium Carbonate (Calcium Carbonate 500 Mg Chewable Tab) 1,500 mg PO BID PRN PRN Reason: Indigestion Stop: 02/13/21 03:05 Last Admin: 01/14/21 03:17 Dose: 1,500 mg Documented by: Morphine Sulfate (Morphine Sulfate 4 Mg/Ml 1 Ml Carp\Vial) 4 mg IV Q4 PRN PRN Reason: Severe Pain Stop: 01/25/21 17:03 Ondansetron HCl (Ondansetron Inj 2 Mg/Ml 2 Ml Vial) 4 mg IV Q4H PRN PRN Reason: Nausea And Vomiting Stop: 02/09/21 05:51 Last Admin: 01/12/21 22:07 Dose: 4 mg Documented by: Oxycodone/Acetaminophen (Oxycodone/Acetaminophen 5mg/325mg Tab) 1 tab PO Q4H PRN PRN Reason: Pain Stop: 01/24/21 12:48 Oxycodone/Acetaminophen (Oxycodone/Acetaminophen 5mg/325mg Tab) 2 tab PO Q4H PRN PRN Reason: Pain Stop: 01/24/21 12:48 Last Admin: 01/10/21 21:32 Dose: 2 tab Documented by:
--- NOTE | 2021-01-14 10:21 | Surgery Progress Note ---
Date of Service January 14, 2021 Assessment & Plan (1) Gallstone pancreatitis: POD#4 lap neil Patient feeling well today No abdominal complaints; tolerating a diet and having + bowel function Abdomen soft and incisions c/d/i Na noted to be improving, 124 today. Nephrology, Dr. Pennington and Hospitalists recommendations appreciated Patient expressed wishes of potential discharge later today...from our standpoint this would be okay pending hospitalists thoughts/clearance. She still has pugh in place currently She does not need to follow up with us in the clinic, but can call anytime with any questions/concerns. Pt seen and examined with Dr. Mclain Admission and Anticipated Discharge Date Admission Date: January 10, 2021 Subjective Patient says she is doing much better today. She is tolerating a diet, no complaints of nausea/vomiting. She is passing flatus and BM's. Physical Exam Physical Exam: awake/alert Constitutional: no acute distress Gastrointestinal (Abdomen): Inspection/Auscultation: + abdominal surgical incision (c/d/i with steri-strips overtop); abdomen not distended Percussion/Palpation: abdomen soft Results & Data ([facility]) Vital Signs (Past 12 Hours) Vital Signs Temp Pulse Resp BP BP Pulse Ox 01/14/21 07:42 36.8 C 68 16 111/72 98 01/14/21 03:52 36.9 C 72 18 109/64 01/13/21 23:44 37.0 C 96 H 17 126/67 97 PG Care Time/CCT Total # of Minutes Spent Total Time Spent with Patient: Total time spent is greater than 50% in coordination of care (as documented) at patient's floor/unit and/or counseling patient: Coding Level of Care Code None Diagnoses Gallstone pancreatitis K85.10
--- NOTE | 2021-01-14 15:07 | Med Student Discharge Summary ---
Date of Service January 14, 2021 Admission HPI Per Admitting Provider This 25-year-old female who delivered beginning of December/2020 after being treated for acute pancreatitis 2 weeks prior to her delivery also receiving Von Willebrand treatment for type I with DDAVP 1 hour prior to her came into the ER with significant nausea work-up revealed her lipase to be slightly elevated although certainly improved from a month ago scheduled to have her surgery done in February electively She had been seen here by oncology hematology Dr. Hairston She was diagnosed at age 3 with von Willebrand's and has received at least 4 treatments prior to elective procedure Her most recent episode of nausea developed after she had a chicken salad Admission Exam (Per Admitting) Constitutional WD/WN, vitals as above well developed and average body habitus Presently she is alter coherent next to her sleeping partner. Eyes PERRL, conjunctivae normal, anicteric sclerae Respiratory normal respiratory effort Cardiovascular Rate/Rhythm: regular rate Gastrointestinal (Abdomen) Inspection/Auscultation: abdomen normal to inspection Percussion/Palpation: abdomen nontender and no abdominal mass Musculoskeletal Extremities: extremities normal to inspection Discharge Data Consultations 01/10/21 03:14 ED Decision to Admit Stat 01/10/21 05:08 Consult Hematology Routine 01/10/21 17:03 Consult Hospitalist Routine 01/13/21 06:20 Consult Nephrology Routine Procedures Performed Operation Date: 01/10/21 11:00 Actual Procedures p Laparoscopic Cholecystectomy with Cholangiogram(Not Applicable) - Eduin Mclain MD, [facility] Hospital Course (1) Hypotension: Ms. Eng is a 25-year-old female with a past medical history of von Willebrand's disease, tobacco use, and gallstone pancreatitis who is s/p C- section at 39 and 0/7 weeks for indication of intolerance of labor and oligohydramnios on 12/23 and lap cholecystectomy on 01/10. Her post-operative course was complicated by hypotension and hyponatremia. (1) Acute postoperative hypotension: - Arya bah was called overnight on the day of surgery. - Patient received one unit pRBCs on 01/11 as well as IVF. Hgb 10.6 on discharge. - CT on 01/11 did show blood products in the pelvis. - Some concern for continued bleeding from surgical site but more likely due to falling levels of vWF in post- setting. (2) Von Willebrand's disease: - Diagnosed at 3 years old, and had 4 prior treatments for elective surgeries. - Patient given DDAVP pre-op. - Given pRBCs and additional doses of DDAVP on 01/11 and 01/12, for a total of 3. - Consulted with Dr. Hairston, iron given on 01/12. Iron studies normal with elevated Fe in the setting of blood transfusion. - Will follow-up with Dr. Hairston in the outpatient setting. (3) Hyponatremia: - Patient developed a sodium of 117 in the setting of DDAVP x3. - Received 100 mL bolus of 3% saline x2 as well as salt tabs. - Given brisk diuresis, there was concern for overcorrect and D5W was started. - Na 131 on discharge. Will get BMP in outpatient setting the day after discharge, 01/15. (4) S/p Cholecystectomy for Indication of Gallstone Pancreatitis: - Discharged on POD 4. - Received routine post-op care inpatient. No need for follow-up with gen surg outpatient. (5) Tobacco use: Provided counseling. (6) Hypokalemia: - Repleted with KCl. - Recheck on day after discharge in the outpatient setting. Dispo: PACU FEN: Regular Diet Code: Full Code VTE: Ambulation (2) state: (3) Anxiety and depression: Discharge Plan Discharge Items Patient Disposition: Home - Self-Care Reason For Visit: SYMPTOMATIC CHOLELETHIASIS Discharge Diagnosis: laparoscopic cholecystectomy Activity: As commented below Lifting: No more than 10 pounds Bathing Comment: can shower; no soaking in tubs/pools for the next few weeks Exercise/Sports: Gradually increase as tolerated Driving/Machine Use: Resume 3 days after discharge Non-emergency contact: Surgeon Call non-emergency contact if: you have any medication questions, your pain is not controlled, you have a fever, your temperature is above 101.5 and your wound has increased redness Follow-up/Referrals: Eduin Mclain MD, FACS [Surgeon] - (No need to follow up with us in clinic, but you may call anytime with questions/concerns) Francisca Hurley PA-C [Primary Care Provider] - Diet: Regular Ambulatory Orders: Basic Metabolic Panel (Routine) Timeframe: 1 Day Location: Determined by Patient Ordered By: Flora Hernandez Complete Blood Count with Diff (Routine) Timeframe: 1 Day Location: Determined by Patient Ordered By: Flora Jimenez Attending Provider Instructions: Leave steri-strips on for a few days You were admitted to the hospital after your gallbladder removal due to low blood pressure and feeling unwell. You needed to have some blood as well as DDAVP in order to help your blood counts come back up. Your von Willebrand disease caused some anemia after your surgery. Due to needing DDAVP, your sodium level unfortunately went down and required electrolyte replacement. That level is almost normal on day of discharge. Please keep your follow up with your Substation Operator Conversion, the General Surgeon, and with your OBGYN as scheduled. You should have a follow up with your Primary Care Doctor within 7 days of discharge. None of your medicines were otherwise changed. CONTACT YOUR PRIMARY CARE PROVIDER if you experience any of the following: Fatigue, lightheadedness, dizziness Blood in your stool, urine, or vomit Difficulty following your treatment plan, or difficulty taking medications CALL 911 OR GO TO THE EMERGENCY DEPARTMENT if you experience any of the following: Sudden, severe abdominal pain or nausea/vomiting Severe chest pain, or chest pain that radiates (moves) to your jaw or arm Sudden, severe shortness of breath or difficulty breathing Pending Studies at Discharge: No Stand-Alone Forms: My [facility], Smoking Cessation Medications and DC Order Prescriptions: New oxycodone-acetaminophen [Percocet] 5-325 mg tablet 1 - 2 tab PO Q4H PRN (Reason: pain, initial therapy, max 6 daily) Qty: 12 RF: 0 Continued prenat.vits,maikel,[id number]-aynkh Tablet 1 tab PO DAILY RF: 0 famotidine 20 mg tablet 20 mg PO BID PRN (Reason: HEARTBURN/INDIGESTION) RF: 0 Discontinued acetaminophen [Tylenol] 325 mg Tablet 650 mg PO Q6H PRN (Reason: Pain) RF: 0 Discharge Orders: Discharge Order (Routine); Ordered 01/14/21 Ordered By: Channing Flowers Admission Data Admit Date/Time: 01/10/21 03:58 Attending Provider: Channing Flowers Admit Provider: Eduin Mclain Primary Care Provider: Francisca Hurley Other Providers: Eduin Mclain ; Marquis Hairston V. ; Digna Arellano ; Man Barba Supervising Attestation I personally examined the patient and verified all pollock points of history and exam, discussed case, and agree with decision making with Reinier Torrez MS4 Feeling good. Very much wants to go home. Consultants input greatly appreciated. Vitals noted, in general she is awake and alert pleasant no distress. HEENT normocephalic atraumatic mucous membranes moist. Breathing unlabored no accessory muscle use good effort. Skin shows no rashes no pallor or icterus. Neuro shows no focal deficits. Labs reviewed. Acute blood loss anemiarelated to von Willebrand's disease in the context of being about 2 weeks and then having had a cholecystectomy. Likely at this time she was about a low point of VWF explaining the ongoing ooz ingfortunately after several doses of DDAVP, her hemoglobin is now stable, her belly is feeling much better, and this appears to be a resolved process. She did require 1 unit packed RBCs for her acute blood loss anemia. Hyponatremiasecondary to the DDAVP necessary for her von Willebrand's related oozing of blood. As above noted, fortunately the bleeding is resolved, now her sodium is well on its way to normal. Given how close it is to normal, given that she is within a general range for homeostasis, and given that her mental status is completely normal, it appears very safe to let her go home with a follow-up basic metabolic panel tomorrow. Anticipate full resolution of this with no further intervention. stable for home, otherwise as above
--- NOTE | 2021-01-14 15:13 | Billing Data ---
Date of Service January 14, 2021 Coding Level of Care Code D/C Day Management <30 mins
== END 2021-01-14 15:57 | disposition home or self-care (01) | DRG 769 ==
LOC: ED 23:25 → SUATTDRO 01-10 03:58 → 3N 01-10 03:58 → 2E 01-13 06:05

== ENCOUNTER 2022-03-07 05:31 | Inpatient (IN) ==
--- NOTE | 2022-02-22 10:35 | Anesthesiology Consultation ---
Date of Service February 22, 2022 Assessment & Plan (1) Encounter for pre-operative examination: - Type I Von Willebrand disease: Per OB visit (02/17/22): "takes DDAVP in past (IV and nasal) for procedures.. Previously got 20mcg of DDAVP mixed in 50 ml NSS.. heme appointment 12/29/21.. Per Heme: ddavp to be given 1 hour prior to [id number] diluted in 50ml of NSS given IV infusion over 20-30 min. If ddavp does not work-Humate p 3400 units loading dose, followed by same dose q 12 hours to keep vfw:RCo 50%" Hematology visit (12/29/21): "Type I Von Willebrand's; she is scheduled to undergo in March/2022 and will require DDAVP prior to procedure.. Most recent CBC with new onset anemia, likely iron deficiency in setting of prior menorrhagia + currently .. Will require DDAVP 30 to 60 minutes prior to . If repeat dosing needed, recommend alternate such as Humate-P due to previous hyponatremia from multiple DDAVP doses.. Recommend hematology inpatient consult if she has recurrent bleeding following delivery." Lyn at pharmacy made aware of upcoming procedure and heme recommendations. Case reviewed with Dr. Bales. He states OB would be the ones initiating the preop DDAVP. Per 02/22/22 OB workload message, they are aware/arranging preop DDAVP and plan to consult heme if DDAVP doesn't work/Humate p needed.l - S/P (12/23/20): Per anesthesia consult note (12/23/20): "Spoke with patient about her increased bleeding risk from type I vonwillebrands and how it might affect my ability to offer neuraxial analgesia and or anesthesia. Her vw labs were found to be in the normal range during her which is common. She understands that we would give ddavp prior to any procedure per Dr Hairston's recommendations, and that bleeding complications will be a lower, reasonable risk though still higher than in someone without the disorder. She realizes that a neuraxial procedure is not a necessity in childbirth and will consider her options, but is leaning toward doing it at this point. Will follow along through her labor with Dr Francis." > Decision made for c/s d/t oligo/prolonged labor. Given preop DDAVP. Patient had SAB at L3-4 x1 attempt at [facility]. No issues noted per post-op anesthesia progress note. - S/P Lap cholecystectomy (01/10/21): Given preop DDAVP. Grade view 1, ETT 7.0 at [facility]. No issues noted per post-op anesthesia progress note. - COVID screening: Per assessment on 02/22: No known COVID-19 positive contacts or current COVID-19 related symptoms. Travel screen negative. Surgeon arranging preop COVID testing. Awaiting results. Chart Review Chart Review: order entry administrator initiated History Surgery Operation Date: 03/07/22 07:30 Proposed Procedures p Section in LD (Delivery of Baby Through Abdominal Incision) - Dayanara Francis MD, FACOG s with Bilateral Tubal Ligation in LD - Dayanara Francis MD, FACOG Height/Weight Height: 5 ft 3 in Weight: 72.121 kg Allergies Allergy/AdvReac Type Severity Reaction Status Date / Time metoclopramide [From Reglan] AdvReac Severe Anxiety Verified 02/22/22 09:43 codeine AdvReac Intermediate Nausea Verified 02/22/22 09:43 Medications Home Medications Medication Instructions Recorded Confirmed Last Taken prenat.vits,maikel,[id number] 1 tab PO HS 08/09/21 02/22/22 12/15/21 diphenhydramine HCl 50 mg capsule 25 mg PO HS PRN Sleep 12/15/21 02/22/22 Unknown ([employer] [facility]) ondansetron HCl 4 mg tablet 8 mg PO Q6H PRN nausea and 02/10/22 02/22/22 Unknown vomiting #40 tabs acetaminophen 325 mg capsule 325 mg PO QID PRN Pain, headaches 02/22/22 02/22/22 Unknown (Tylenol) famotidine 10 mg tablet 10 mg PO UD 02/22/22 02/22/22 Unknown Past Medical History Medical History (Updated 02/22/22 @ 10:20 by Puja Jesus) Anxiety Depression Gallstone pancreatitis GERD (gastroesophageal reflux disease) History of PCOS Interstitial cystitis Von Willebrand disease Past Family History Family History Grandfather (Paternal) Heart disease Stroke Hypertension Cancer unsure what kind of cancer Grandmother (Paternal) Heart disease Stroke Hypertension Uncle Cancer dads uncle Denies family history of Ovarian cancer Diabetes Breast cancer Colorectal cancer Lung disease Past Surgical History Surgical History (Updated 02/22/22 @ 10:20 by Puja Jesus) H/O section S/P cystoscopy S/P laparoscopic cholecystectomy Laparoscopic Cholecystectomy with Cholangiogram (01/2021) S/P nasal septoplasty S/P wisdom tooth extraction Social History Smoking Status: Current some day smoker tobacco type: cigarettes Smoking cigarettes per day: 10 Do You Dip or Chew Tobacco: No Smoking End Date: quit cigarettes 6 months ago, still vapes occas. Hx Alcohol Use: No Hx Substance Use: No substance use type: does not use Lab Results Anesthesia Preop Results Results Anesthesia Widget: WBC 7.79 K/uL (4.8-10.8) 12/29/21 Hgb 11.5 g/dL (12.0-16.0) L 12/29/21 Hct 33.9 % (37-47) L 12/29/21 Plt 253 K/uL (130-400) 12/29/21 Na 135 mmol/L (136-145) L 12/29/21 K 3.5 mmol/L (3.5-5.1) 12/29/21 Cl 105 mmol/L (98-107) 12/29/21 CO2 24 mmol/L (21-32) 12/29/21 BUN 5 mg/dl (6-23) L 12/29/21 Creat 0.43 mg/dl (0.6-1.2) L 12/29/21 Glucose Level 77 mg/dl (70-99(Fasting)) 12/29/21
--- NOTE | 2022-02-24 09:49 | History & Physical Report ---
Date of Service February 24, 2022 Assessment & Plan (1) Von Willebrand disease: (2) with 39 completed weeks gestation: (3) Previous delivery affecting : (4) Short interval between pregnancies complicating , antepartum: (5) Sterilization consult: Plan Plan to proceed with repeat c/s and TL. The risks of the surgery were discussed with the patient including infection, bleeding, transfusion, damage to surrounding structures, need for further surgery, injury to baby, heart attack, blood clot , stroke , . We discussed the other options for control including barriers, hormones, ltrc, vasectomy. She declines. She understands permanence and irreversibility. Understands risk for ectopic if does get . Consent reviewed and signed. questions asked and answered. There is a plan for DDAVP prior to and for what to happen if she has continued bleeding. Patient understands her increased risk. History of Present Illness Chief Complaint: presents for c/s Primary Care Provider: Francisca Hurley PA-C Patient is a 26yowf who presents to labor and delivery with a at 39 + weeks who presents to labor and delivery for repeat c/s. she delivered by c/s in 12/25 for oligo and nrfht. Given short interval, have not recommended rex and to proceed with c/s. Additionally, she desires permanent sterilization. has essentially been uncomplicated. Follows with hematology for vWD. She had her c/s with one dose of ddavp and then had no other issues. She then pp had her gallbladder removed and had some bleeding issues after receiving DDAVP needing further therapy. There is a plan for this c/s. and Delivery Plans Prior for distress 12/2020 -Short interval preg -plans repeat CS, likely desires BTL C/S SCHEDULED FOR 03/07/[address] MCCANN NEEDS COVID TEST ON 03/07/2022-ORDERED Von Willebrand disease -takes DDAVP in past (IV and nasal) for procedures -Previously got 20mcg of DDAVP mixed in 50 ml NSS -heme appointment 12/29/21 Per Heme: ddavp to be given 1 hour prior to [id number] diluted in 50ml of NSS given IV infusion over 20-30 min. 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 Current tobacco use Prior MJ use before HPT -UDS at [facility] Flu shot given 08/12/21 SB Iron Infusions Weekly x3 OB Labs: Blood Type A Positive 08/16/21 Antibody Screen NEGATIVE 08/16/21 Hemoglobin 11.5 g/dL (12.0-16.0) L 12/29/21 Hematocrit 33.9 % (37-47) L 12/29/21 Mean Corpuscular Volume 88.1 fL (80-100) 12/29/21 Platelet Count 253 K/uL (130-400) 12/29/21 Rubella IgG Antibody Immune (Immune) 08/16/21 Rapid Plasma Reagin Nonreactive (Nonreactive) 08/16/21 Hepatitis B Surface Antigen Neg (Neg) 08/16/21 Hepatitis C Antibody Neg (Neg) 08/16/21 HIV (1&2) Ab and P24 Ag, 4th Gener Neg (Neg) 08/16/21 Glucose 1 Hour 50 gm Load 124 mg/dl (70-130) 12/22/21 Maternal Serum Alpha Fetoprotein 24.8 ng/mL 09/22/21 OB Optional Labs: Chlamydia trachomatis RNA NOT DETECTED (NOT DETECTED) 08/12/21 Neisseria gonorrhoeae RNA NOT DETECTED (NOT DETECTED) 08/12/21 Alpha Fetoprotein Triple Screen SEE NOTE 09/22/21 Labs Reviewed: cf/sma neg 2019 low risk panorama afp neg gbs neg Allergies Allergy/AdvReac Type Severity Reaction Status Date / Time metoclopramide [From Reglan] AdvReac Severe Anxiety Verified 02/23/22 11:01 codeine AdvReac Intermediate Nausea Verified 02/23/22 11:01 Home Medications Medication Instructions Recorded Confirmed Type prenat.vits,maikel,[id number]-[id number] 1 tab PO HS 08/09/21 02/23/22 History diphenhydramine HCl 50 mg capsule 25 mg PO HS PRN Sleep 12/15/21 02/23/22 History ([facility]) ondansetron HCl 4 mg tablet 8 mg PO Q6H PRN nausea and 02/10/22 02/23/22 Rx vomiting #40 tabs acetaminophen 325 mg capsule 325 mg PO QID PRN Pain, headaches 02/22/22 02/23/22 History (Tylenol) famotidine 10 mg tablet 10 mg PO UD 02/22/22 02/23/22 History Patient History Medical History (Updated 02/24/22 @ 09:57 by Dayanara Mccann MD, FACOG) Anxiety Depression Gallstone pancreatitis GERD (gastroesophageal reflux disease) History of PCOS Interstitial cystitis Von Willebrand disease Surgical History (Updated 02/24/22 @ 09:57 by Dayanara Mccann MD, FACOG) H/O section S/P cystoscopy S/P laparoscopic cholecystectomy Laparoscopic Cholecystectomy with Cholangiogram (01/2021) S/P nasal septoplasty S/P wisdom tooth extraction Family History Grandfather (Paternal) Heart disease Stroke Hypertension Cancer unsure what kind of cancer Grandmother (Paternal) Heart disease Stroke Hypertension Uncle Cancer dads uncle Denies family history of Ovarian cancer Diabetes Breast cancer Colorectal cancer Lung disease Social History Smoking Status: Current some day smoker Tobacco Type: Cigarettes Years Smoked: 11; Cigarettes Per Day: 10; Second Hand Exposure: No; Hx Alcohol Use: No Hx Substance Use: No Preferred Language: Guinean Communication Ability: Effective Visual Impairment: No Limitations Marine Cargo Inspector Required: No Beliefs That Will Affect Care: None marital status: marital status details: raul Blanton (26) [phone] Current Living Situation: Family Current Living Situation Comment: [place], 3 year old step daughter, 2 week old daughter current occupational status: employed current occupation: [employer] works How many Children do You have: 2 Feels Safe at Home: Yes Assistive Devices: Glasses OB History Past Pregnancies Del. Date GA wksB Lbr Lgth wt Sex Type del Anes Place Del Prov ? Comment 12/23/20 39 6lb 12.1oz F C-Secti on [facility] Dr. Mccann No Oligo, distress CREDIT COLLECTIONS SPECIALIST History noncontributory Physical Exam Constitutional: WD/WN, vitals as above Neck: trachea midline, no thyromegaly Respiratory: normal respiratory effort, lungs clear to auscultation Cardiovascular: RRR, no murmur, no edema Extremities: no calf tenderness and no edema Gastrointestinal (Abdomen): soft, gravid, nt Psychiatric: A+Ox3, euthymic affect Coding Level of Care Code None Diagnoses Von Willebrand disease D68.0 with 39 completed weeks gestation Z3A.39 Previous delivery affecting O34.219 Short interval between pregnancies complicating , antepartum O09.899 Sterilization consult Z30.09
[2022-03-07] MEDS ORDERED: DESMOPRESSIN ACETATE 20 MCG in SODIUM CHLORIDE 0.9% 50 ML IV SCH (06:00)
[2022-03-07] MEDS ORDERED: LACTATED RINGER'S 1,000 ML IV SCH ×2 (06:00→08:45)
[2022-03-07] MEDS ORDERED: CITRIC ACID/SODIUM CITRATE 15 ML UDC PO SCH (06:00)
[2022-03-07] MEDS ORDERED: ceFAZolin 2,000 MG in SYRINGE 0 ML IV SCH (06:00)
[2022-03-07 06:03] LABS: Basophils # (auto) 0.04 K/uL (0-0.2); Basophils % (auto) 0.5 %; Eosinophils # (auto) 0.06 K/uL (0-0.50); Eosinophils % (auto) 0.8 %; Hematocrit (blood only) 34.2 % (34.1-44.9); Hemoglobin 11.4 g/dl (12.0-16.0); Immature Granulocytes # (auto) 0.05 K/uL (0.00-0.02); Immature Granulocytes % (auto) 0.7 %; Lymphocytes # (auto) 1.95 K/uL (1.2-3.4); Lymphocytes % (auto) 26.6 %; Mean Corpuscular Hemoglobin 28.7 pg (25.0-34.0); Mean Corpuscular Hgb Conc 33.3 g/dL (32.0-36.0); Mean Corpuscular Volume 86.1 fL (80.0-100.0); Mean Platelet Volume 11.4 fL (9.4-12.3); Monocytes # (auto) 0.63 K/uL (0.24-0.82); Monocytes % (auto) 8.6 %; Neutrophils # (auto) 4.61 K/uL (1.4-6.5); Neutrophils % (auto) 62.8 %; Platelet Count 231 K/uL (130-400); RDW Coefficient of Variation 14.9 % (11.5-14.5); Red Blood Count 3.97 M/uL (3.93-5.22); White Blood Count 7.34 K/ul (4.8-10.8)
[2022-03-07] MEDS ORDERED: SODIUM CHLORIDE 0.9% 250 ML IV PRN (06:37)
[2022-03-07 06:45] LABS: Appearance Urine Clear (Clear); Bacteria Urine Automated 1+ (Negative); Bilirubin Urine Negative (Negative); Blood Urine Negative (Negative); Cast Urine Automated 0 /lpf (0-5); Color Urine Yellow; Epithelial Cell Urine Auto >30 /lpf (0-5); Glucose Urine UA Negative (Negative); Ketones Urine Negative (Negative); Leukocyte Esterase Urine 1+ (Negative); Nitrite Urine Negative (Negative); Protein Urine Negative (Negative); RBC Urine Automated 0-4 /hpf (0-4); Specific Gravity Urine 1.007 (1.000-1.030); Urobilinogen Urine Negative (Negative); pH Urine 6.5 (4.5-7.5)
--- NOTE | 2022-03-07 07:03 | History & Physical Bridge Note ---
Date of Service March 07, 2022 History & Physical Bridge Note I have examined the patient, reviewed the History & Physical and in the interval since the performance of the History & Physical I have noted the following changes of clinical significance: no changes noted
[2022-03-07] MEDS ORDERED: MoRPHine SULFATE PF 1 MG/ML 10 ML AMP/VIAL ONE (07:31)
[2022-03-07] MEDS ORDERED: ONDANSETRON INJ 2 MG/ML 2 ML VIAL IV PRN (08:01)
[2022-03-07] MEDS ORDERED: diphenhydrAMINE 50 MG/ML VIAL IV PRN ×2 (08:01)
[2022-03-07] MEDS ORDERED: LACTATED RINGER'S 500 ML IV PRN (08:01)
[2022-03-07] MEDS ORDERED: MoRPHine SULFATE PF 1 MG/ML 10 ML AMP/VIAL INT SPINAL ONE (08:01)
[2022-03-07] MEDS ORDERED: HYDROmorphone INJ 0.5 MG/0.5 ML SYR IV PRN (08:01)
[2022-03-07] MEDS ORDERED: diphenhydrAMINE Capsule 25 MG CAP PO PRN (08:01)
[2022-03-07] MEDS ORDERED: NALOXONE HCL 1 MG in SODIUM CHLORIDE 0.9% 1000ML 1,000 ML IV PRN (08:01)
[2022-03-07] MEDS ORDERED: ePHEDrine sulfate 50 MG/ML AMP IV PRN (08:01)
[2022-03-07] MEDS ORDERED: NALOXONE HCL 0.4 MG/1 ML VIAL/CARP IV PRN (08:01)
[2022-03-07] MEDS ORDERED: NALBUPHINE HCL INJ 10 MG/ML AMP IV PRN (08:01)
[2022-03-07] MEDS ORDERED: NALOXONE HCL 0.08 MG in SYRINGE 1.8 ML IV PRN (08:01)
[2022-03-07 08:02] LABS: Amphetamines+Metham, Urine Neg (Neg); Barbiturates, Urine Neg (Neg); Benzodiazepine, Urine Neg (Neg); Cocaine, Urine Neg (Neg); MDMA (Ecstacy), Urine Neg (Neg); Methadone, Urine Neg (Neg); Opiate, Urine Neg (Neg); Phencyclidine, Urine Neg (Neg)
[2022-03-07] MEDS ORDERED: OXYTOCIN 10 UNITS/ML 10ML VIAL ONE (08:04)
[2022-03-07] MEDS ORDERED: ePHEDrine sulfate 50 MG/ML SYR ONE (08:04)
[2022-03-07] MEDS ORDERED: PHENYLEPHRINE 100MCG/ML 5ML SYR ONE (08:04)
[2022-03-07] MEDS ORDERED: DC INTRASPINAL MORPHINE SCH (08:15)
[2022-03-07] MEDS ORDERED: NO NARCOTICS OR SEDATIVES SCH (08:15)
[2022-03-07] MEDS ORDERED: SODIUM CHLORIDE 0.9% 1000ML 1,000 ML IV SCH (08:15)
[2022-03-07] MEDS ORDERED: DIPHTHERIA/TETANUS/PERTUSSIS 0.5 ML SYR/VIAL IM ONE (08:43)
[2022-03-07] MEDS ORDERED: BENZOCAINE 20% AER SPR 82.5 GM CAN EXT PRN (08:43)
[2022-03-07] MEDS ORDERED: MAGNESIUM HYDROXIDE SUSP 30 ML UDC PO PRN (08:43)
[2022-03-07] MEDS ORDERED: SENNA 8.6 MG TAB PO PRN (08:43)
[2022-03-07] MEDS ORDERED: HYDROCORTISONE ACETATE 25 MG SUPP PR PRN (08:43)
--- NOTE | 2022-03-07 08:43 | Operative Report ---
PG Post Operative Report Pre & Post Diagnosis Operation Date: 03/07/22 07:30 Pre-Op Diagnosis: 39 weeks, previous section, short intervals, desires sterilization I identified the patient and participated in the time-out.: Yes Procedure Operation Date: 03/07/22 07:30 Actual Procedures Repeat low transverse Section in LD Live Female Child at 0802 - Dayanara Francis MD, FACOG Bilateral modified nesha tobal ligation Surgeon Dayanara Francis MD, FACOG Project Analyst Dr. Martin and Dr. Lia Da Silva, DO, PGY 1 Estimated Blood Loss 600 Findings Consistent with Post-Op Diagnosis viable female . normal tubes and ovaries noted. adhesions of omentum to left uterus. thin rose marie. normal appearing uterus. Fluids 1800cc Specimens bilateral tubal segments. Drains pugh Anesthesia Type Spinal Complications none Disposition Accompanied Patient To Recovery: Yes Indications 26yowf with short interval of 13 months. repeat c/s with desire for sterilization Description of Procedure The patient was taken to the operating room where she was identified verbally and by bracelet. She was seated on the operating table where a spinal anesthetic was placed by anesthesia. She was then placed in the supine position with a leftward tilt. A Pugh catheter was placed sterilely. the patient was prepped and draped in a normal standard fashion. the anesthetic was tested and found to be adequate. A time-out was held, identifying correct patient, pro cedure, positioning and preoperative antibiotics. There were no concerns. A Pfannenstiel skin incision was made with a knife and taken down to the underlying layer of fascia with the knife and Bovie electrocautery. Bleeding was attended to with the Bovie. The fascia was incised in the midline with the knife and taken out laterally with scissors. The superior edge of the fascial incision was grasped, elevated and the underlying layer of rectus muscle was taken off bluntly and with scissors. In a similar fashion, the inferior edge of the fascial incision was grasped, elevated and the underlying layer of rectus muscle was taken off bluntly and with scissors. The muscles were bluntly in the midline. The peritoneum was entered bluntly. The incision was then stretched. The bladder blade was placed. The vesicouterine peritoneum was identified, entered with scissors and taken out laterally with scissors. The bladder flap was created digitally. the lower uterine segment was thin but intact. A hysterotomy incision was scored with a knife and the incision was stretched superiorly and inferiorly with the tile machine operator's fingers. The operators hand was placed into the incision and the head was delivered atraumatically. No nuchal cord. The nose and mouth were bulb suctioned. the rest of the infant was then delivered without difficulty. The nose and mouth were again bulb suctioned. The cord was clamped and cut and the was then handed off to the awaiting platform mill supervisor for drying and attention. Cord blood and segment were obtained. The placenta was Manually extracted. The uterus was exteriorized and cleared of all clot and debris with moistened laparotomy sponges. The hysterotomy incision was repaired in two layers, the first in a running locked layer, the second in an imbricating layer. Hemostasis was noted to be good. A bilateral modified Truxton tubal ligation was then performed. The right tube was grasped with a Savanna and a stitch of 2-0 plain gut was placed to made a loop of tube. A second stitch was placed below this. The tube was removed with scissors. The tubal stumps were then cauterized. This was then repeated on the left. The Posterior cul-de-sac was irrigated and cleared of all clot and debris. The hysterotomy incision was again inspected and found to be hemostatic. the uterus was reinteriorized. Hysterotomy incision was again inspected and found to be hemostatic. Rectus muscles were reapproximated with several interrupted stitches of 0 Vicryl. The fascia was then reapproximated with 0 Vicryl starting at the edges and meeting in the midline. The subcuticular tissues were copiously irrigated and bleeding was attended to with cautery. The skin was then closed with 4-0 Vicryl in a subcuticular fashion. All sponge lap and needle counts correct x 2. The patient was taken to the recovery room in stable condition. I attest to the content of the Intraoperative Record and any orders documented therein. Any exceptions are noted below. OB Procedure Charges [id number] Add on Tubal for C/S
[2022-03-07] MEDS ORDERED: KETOROLAC 30 MG/ML VIAL ONE ×2 (09:00→17:42)
[2022-03-07] MEDS ORDERED: KETOROLAC 30 MG/ML VIAL IV ONE (09:17)
[2022-03-07] MEDS: OXYTOCIN 20 UNITS in LACTATED RINGER'S 1,000 ML IV SCH ×2 (10:26→19:09)
--- NOTE | 2022-03-07 13:35 | Anesthesia Procedure Note ---
Date of Service March 07, 2022 Anesthesia Post Epidural Note Vital Signs Vital Signs: Temp Pulse Resp BP Pulse Ox O2 Del Method 36.9 C 42 L 18 109/72 100 03/07/22 11:15 03/07/22 11:15 03/07/22 13:15 03/07/22 11:15 03/07/22 13:15 03/07/22 11:15 Pain Intensity Lower Abdomen: Pain Intensity: 0 Notes Mental Status: alert / awake / arousable Nausea / Vomiting: adequately controlled Pain: adequately controlled Airway Patency, RR, SpO2: stable & adequate BP & HR: stable & adequate Hydration State: stable & adequate Neuraxial Anesthesia: was administered and sensory block is resolving Anesthetic Complications: no major complications apparent and Pt Satisfied with anesthetic care Epidural: Removed without complications and With tip intact
[2022-03-07] MEDS: SIMETHICONE 80 MG CHEW PO SCH ×3 (13:37→20:18)
[2022-03-07] MEDS ORDERED: PROMETHAZINE HCL 25 MG in SODIUM CHLORIDE 0.9% 50 ML IV PRN (16:56)
[2022-03-07] MEDS ORDERED: KETOROLAC 30 MG/ML VIAL IV PRN (17:33)
[2022-03-07] MEDS: DOCUSATE SODIUM 100 MG CAP PO SCH (20:18)
[2022-03-08] MEDS ORDERED: KETOROLAC 30 MG/ML VIAL IV PRN (02:02)
[2022-03-08] MEDS ORDERED: ONDANSETRON INJ 2 MG/ML 2 ML VIAL IV PRN (02:02)
[2022-03-08] MEDS ORDERED: MEPERIDINE HCL 50 MG/ML CARP IV PRN (02:02)
[2022-03-08] MEDS ORDERED: diphenhydrAMINE Capsule 25 MG CAP PO PRN (02:02)
[2022-03-08] MEDS ORDERED: diphenhydrAMINE 50 MG/ML VIAL IV PRN (02:02)
[2022-03-08] MEDS ORDERED: PROMETHAZINE HCL 25 MG in SODIUM CHLORIDE 0.9% 50 ML IV PRN (02:02)
[2022-03-08] MEDS: IBUPROFEN 600 MG TAB PO PRN ×3 (06:02→23:34)
[2022-03-08] MEDS: oxyCODONE/ACETAMINOPHEN 5mg/325mg TAB PO PRN ×6 (06:03→23:34)
[2022-03-08 06:18] LABS: Basophils # (auto) 0.04 K/uL (0-0.2); Basophils % (auto) 0.6 %; Eosinophils # (auto) 0.07 K/uL (0-0.50); Hematocrit (blood only) 29.2 % (34.1-44.9); Hemoglobin 9.2 g/dl (12.0-16.0); Immature Granulocytes # (auto) 0.06 K/uL (0.00-0.02); Immature Granulocytes % (auto) 0.9 %; Lymphocytes # (auto) 1.65 K/uL (1.2-3.4); Lymphocytes % (auto) 23.5 %; Mean Corpuscular Hemoglobin 27.9 pg (25.0-34.0); Mean Corpuscular Hgb Conc 31.5 g/dL (32.0-36.0); Mean Corpuscular Volume 88.5 fL (80.0-100.0); Mean Platelet Volume 10.8 fL (9.4-12.3); Monocytes # (auto) 0.61 K/uL (0.24-0.82); Monocytes % (auto) 8.7 %; Neutrophils # (auto) 4.58 K/uL (1.4-6.5); Neutrophils % (auto) 65.3 %; Platelet Count 158 K/uL (130-400); RDW Coefficient of Variation 15.1 % (11.5-14.5); RDW Standard Deviation 48.2 fL (36.4-46.3); White Blood Count 7.01 K/ul (4.8-10.8)
--- NOTE | 2022-03-08 06:34 | Obstetrical Progress Note ---
Date of Service <Lauren Da Silva DO - Last Filed: 03/08/22 06:34> March 08, 2022 Assessment & Plan <Lauren Arleen Da Silva DO - Last Filed: 03/08/22 06:34> (1) state: Patient is PPD 1 s/p repeat C section with TL and doing well. - Vitals reviewed and within normal limits - Pain well controlled with analgesics - OOB, ambulation, diet progression as tolerated today - Blood type: A+, GBS neg, rubella immune - Plan to discharge tomorrow - After discharge, 6 week follow up with Dr. Francis <Dayanara Francis MD, FACOG - Last Filed: 03/08/22 07:40> (1) state: Subjective <Lauren Arleen Da Silva DO - Last Filed: 03/08/22 06:34> Tara Eng is a 26 yo female is POD #1 following delivery at 39 weeks. She reports feeling well overall this morning. She denies abdominal cramping and 6/10 pain well managed on analgesics. Her catheter was removed this morning. Tolerating clear fluids overnight and had a bowl of cereal. She felt nauseous and vomited yesterday but that has since improved. She has not been up to ambulate yet. The plan is for her to get up and moving today. She has passed gas but no bowel movement. Persistent lochia with some improvement this morning. Currently bottle feeding. Review of Systems Denies fever, chills, sweats. Denies SOB, difficulty breathing, chest pain, palpitations, and chest pressure. Denies breast pain. Denies dysuria. Denies headache or changes in vision. Physical Exam <Lauren Da Silva DO - Last Filed: 03/08/22 06:34> General: Alert and oriented. No acute distress. CV: Regular rate and rhythm. No murmurs. Respiratory: CTA bilaterally. No rhonchi, wheezes, or crackles. No increased work of breathing. Abdomen: Positive bowel sounds. Soft, nontender, and nondistended. Uterus: Fundus firm and palpable 2 cm below umbilicus. Surgical scar covered. Lower extremities: No LE edema. No deep calf pain. Markel's negative bilaterally. Results & Data ([facility]) <Lauren Da Silva DO - Last Filed: 03/08/22 06:34> Vital Signs (Past 12 Hours) Vital Signs Temp Pulse Resp BP Pulse Ox O2 Del Method 03/08/22 03:25 36.6 C 48 L 18 102/64 99 Room Air 03/08/22 01:25 18 93 03/08/22 00:20 18 98 03/07/22 23:25 18 98 03/07/22 23:25 36.8 C 48 L 18 102/53 L 98 Room Air 03/07/22 22:25 18 98 03/07/22 21:25 18 98 03/07/22 19:45 36.9 C 45 L 18 124/63 98 Room Air 03/07/22 20:20 18 99 03/07/22 19:10 18 98 <Dayanara Francis MD, FACOG - Last Filed: 03/08/22 07:40> Co-Signing Physician Notes Resident Physician Supervision Note: I interviewed and examined the patient. Discussed with Dr. Da Silva and agree with findings and plan as documented in the note. Any exceptions or clarifications are listed here: Doing well. Routine postop 1 care. Documented By: Dayanara Francis MD, FACOG Resident Activity Tracking <Lauren Da Silva DO - Last Filed: 03/08/22 06:34> Resident Involvement: Resident Care Provided Care Provided: OB Delivery
[2022-03-08] MEDS: SIMETHICONE 80 MG CHEW PO SCH ×4 (07:54→19:58)
[2022-03-08] MEDS: PRENATAL VITAMIN 1 TAB PO SCH (07:54)
[2022-03-08] MEDS: FERROUS SULFATE 325 MG TAB PO SCH (07:54)
[2022-03-08] MEDS: DOCUSATE SODIUM 100 MG CAP PO SCH ×2 (07:54→19:58)
[2022-03-08] MEDS ORDERED: bisacodyL 5 MG TABEC PO SCH (20:00)
[2022-03-08 23:11] LABS: Marijuana Quant, GCMS Urine 378 ng/mL (<5)
[2022-03-09 06:00] LABS: Hematocrit (blood only) 29.3 % (34.1-44.9); Hemoglobin 9.6 g/dl (12.0-16.0)
--- NOTE | 2022-03-09 06:25 | Obstetrical Progress Note ---
Date of Service <Lauren Da Silva DO - Last Filed: 03/09/22 06:25> March 09, 2022 Assessment & Plan <Lauren Arleen Da Silva DO - Last Filed: 03/09/22 06:25> (1) state: Patient is PPD 2 s/p repeat C section with tubal ligation and doing well. - Eating well, voiding well, ambulating well - Vitals reviewed and within normal limits - Pain well controlled with analgesics - OOB, ambulation, diet progression as tolerated - Blood type: A+, GBS neg, rubella immune - She plans to f/u with hematology d/t VWD - Plan to discharge today - After discharge, 6 week follow up with Dr. Francis <Bridget Pal MD, FACOG - Last Filed: 03/09/22 07:40> (1) state: Subjective <Lauren Arleen Da Silva DO - Last Filed: 03/09/22 06:25> Tara Eng is a 26 yo female is POD #2 following delivery at 39 weeks. She reports feeling well overall this morning. She denies abdominal cramping and 5/10 pain well managed on analgesics. She describes some burning pain around her incision. Voiding without issue. Tolerating regular meals overnight and able to ambulate some. She has passed gas and had one small bowel movement. Persistent lochia with some improvement this morning. Currently bottle feeding. Review of Systems Denies fever, chills, sweats. Denies SOB, difficulty breathing, chest pain, palpitations, and chest pressure. Denies breast pain. Denies dysuria. Denies headache or changes in vision. Physical Exam <Lauren Da Silva DO - Last Filed: 03/09/22 06:25> General: Alert and oriented. No acute distress. CV: Regular rate and rhythm. No murmurs. Respiratory: CTA bilaterally. No rhonchi, wheezes, or crackles. No increased work of breathing. Abdomen: Positive bowel sounds. Soft, nontender, and nondistended. Uterus: Fundus firm and palpable 2 cm below umbilicus. Surgical scar clean and healing well. Lower extremities: No LE edema. No deep calf pain. Markel's negative bilaterally. Results & Data ([facility]) <Lauren Da Silva DO - Last Filed: 03/09/22 06:25> Vital Signs (Past 12 Hours) Vital Signs Temp Pulse Resp BP Pulse Ox O2 Del Method 03/08/22 23:30 36.5 C 58 L 16 109/68 96 Room Air 03/08/22 20:00 36.4 C L 47 L 16 107/51 L 99 Room Air <Bridget Pal MD, FACOG - Last Filed: 03/09/22 07:40> Co-Signing Physician Notes Resident Physician Supervision Note: I was present with [Name of resident] during the history and exam. I discussed the case with the resident and agree with the findings and plan as documented in the note. Any exceptions or clarifications are listed here: [None] Documented By: Bridget Pal MD, FACOG Resident Activity Tracking <Lauren Da Silva DO - Last Filed: 03/09/22 06:25> Resident Involvement: Resident Care Provided Care Provided: OB Delivery
[2022-03-09] MEDS: PRENATAL VITAMIN 1 TAB PO SCH (07:32)
[2022-03-09] MEDS: FERROUS SULFATE 325 MG TAB PO SCH (07:32)
[2022-03-09] MEDS: SIMETHICONE 80 MG CHEW PO SCH (07:32)
[2022-03-09] MEDS: oxyCODONE/ACETAMINOPHEN 5mg/325mg TAB PO PRN (07:32)
[2022-03-09] MEDS: IBUPROFEN 600 MG TAB PO PRN (07:32)
[2022-03-09] MEDS: DOCUSATE SODIUM 100 MG CAP PO SCH (07:32)
[2022-03-09] MEDS ORDERED: bisacodyL 10 MG SUPP PR PRN (08:43)
--- NOTE | 2022-03-10 14:20 | Discharge Summary ---
Date of Service March 10, 2022 Admission HPI Per Admitting Provider Patient is a 26yowf who presents to labor and delivery with a at 39 + weeks who presents to labor and delivery for repeat c/s. she delivered by c/s in 12/25 for oligo and nrfht. Given short interval, have not recommended rex and to proceed with c/s. Additionally, she desires permanent sterilization. has essentially been uncomplicated. Follows with hematology for vWD. She had her c/s with one dose of ddavp and then had no other issues. She then pp had her gallbladder removed and had some bleeding issues after receiving DDAVP needing further therapy. There is a plan for this c/s. and Delivery Plans Prior for distress 12/2020 -Short interval preg -plans repeat CS, likely desires BTL C/S SCHEDULED FOR 03/07/[address] MCCANN NEEDS COVID TEST ON 03/07/2022-ORDERED Von Willebrand disease -takes DDAVP in past (IV and nasal) for procedures -Previously got 20mcg of DDAVP mixed in 50 ml NSS -heme appointment 12/29/21 Per Heme: ddavp to be given 1 hour prior to [id number] diluted in 50ml of NSS given IV infusion over 20-30 min. 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 Current tobacco use Prior MJ use before HPT -UDS at [facility] Flu shot given 08/12/21 SB Iron Infusions Weekly x3 OB Labs: Blood Type A Positive 08/16/21 Antibody Screen NEGATIVE 08/16/21 Hemoglobin 11.5 g/dL (12.0-16.0) L 12/29/21 Hematocrit 33.9 % (37-47) L 12/29/21 Mean Corpuscular Volume 88.1 fL (80-100) 12/29/21 Platelet Count 253 K/uL (130-400) 12/29/21 Rubella IgG Antibody Immune (Immune) 08/16/21 Rapid Plasma Reagin Nonreactive (Nonreactive) 08/16/21 Hepatitis B Surface Antigen Neg (Neg) 08/16/21 Hepatitis C Antibody Neg (Neg) 08/16/21 HIV (1&2) Ab and P24 Ag, 4th Gener Neg (Neg) 08/16/21 Glucose 1 Hour 50 gm Load 124 mg/dl (70-130) 12/22/21 Maternal Serum Alpha Fetoprotein 24.8 ng/mL 09/22/21 OB Optional Labs: Chlamydia trachomatis RNA NOT DETECTED (NOT DETECTED) 08/12/21 Neisseria gonorrhoeae RNA NOT DETECTED (NOT DETECTED) 08/12/21 Alpha Fetoprotein Triple Screen SEE NOTE 09/22/21 Labs Reviewed: cf/sma neg 2019 low risk panorama afp neg gbs neg Discharge Data Consultations 03/07/22 05:32 Consult Anesthesiology Stat Procedures Performed Operation Date: 03/07/22 07:30 Actual Procedures p Section in LD Live Female Child at 0802 - Dayanara Mccann MD, [facility] Course (1) Sterilization consult: (2) state: (3) Short interval between pregnancies complicating , antepartum: (4) Previous delivery affecting : (5) with 39 completed weeks gestation: Plan Patient underwent repeat c/s and tubal ligation without difficulty. EBL--600cc. WAs treated pre-op with DDAVP and had no bleeding issues. Had a routine PP course--voided after removal of pugh, ambulated, tolerated regular diet, tolerated oral pain meds. d/c H/H 9.6/29.3. To follow up in six weeks in the office. Coding Level of Care Code None Diagnoses Sterilization consult Z30.09 state Z39.2 Short interval between pregnancies complicating , antepartum O09.899 Previous delivery affecting O34.219 with 39 completed weeks gestation Z3A.39
== END 2022-03-09 11:05 | disposition home or self-care (01) | DRG 784 ==
LOC: 4S1 05:31 → EDSTATUS 08:50 → 4E2 11:15